=== PATIENT | female | born 1965 | race Caucasian/White ===

== ENCOUNTER → 2017-09-12 | Outpatient (CLI) | payer OTHER ==
[2016-08-14 11:17] VITALS: BMI 19.9
[~2017-09-12] MED LIST: AMIT-104 PO; AMIT-106 PO; BUTA1TAB14 PO; CYCL10TA29 PO; DIVA250T84 PO; DOCU-202 PO; DULO30CA35 PO; DULO60CA56 PO; ESOM40CA42 PO; LEVO25TA61 PO; LEVO50TA86 PO; LID5T TP; LIDO700A19 TOP; LISI-362 PO; MELA3TAB31 PO; METH4TAB66 PO; MOM PO; ONDA4TAB9 SL; OXYC5CAP21 PO; OXYC5TAB38 PO; PANT40TA65 PO; POLY17PO21 PO; RIZA5TAB30 PO; SUCR1TAB51 PO; TRIA15CR40 TP; VARE1TAB3 PO; VARE1TAB4 PO; Work Restrictions
== END ==
LOC: RESP 08:00
PROVIDERS: ATTEND Nurse Practitioner Family
DX: G47.30 Sleep apnea, unspecified (principal); R06.83 Snoring

== ENCOUNTER 2017-11-21 14:48 | Outpatient (RCR) | payer OTHER ==
[2016-08-14 11:17] VITALS: BMI 19.9
--- NOTE | 2017-09-02 10:41 | PT INITIAL EVALUATION ---
MEDICAL DIAGNOSIS: Chronic Back Pain, Chronic Headaches TREATMENT DIAGNOSIS: Chronic Back Pain, Chronic Headaches DATE OF ONSET: 08/26/17 SUBJECTIVE: Rand is a 52 year-old female presenting to physical therapy following a recent exacerbation of chronic mid back pain. Pt reports that she was lifting a heavy herman at work and since has been having high pain in the thoracic region with headaches that radiate from the back of the neck to the eyes. Pt has a long history of back pain and migraines, but she reports that this pain is different and more intense than her usual ache. Pt reports pain currently as 5/10 from T6 up to the occiput and with a headache present. Pt also reports constant numbness and tingling in B hands. Pt reports that she was started on a round of steroids by her APPLIED BEHAVIOR SPECIALIST which decreased the pain but since ending the pain has returned and appears to be getting worse. 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 OBJECTIVE: Posture: Pt has mild rounded shoulder and thoracic kyphosis with forward head. ROM: Thoracic ROM Screen: ext-pain in neck and between shoulders with moderate restrictions, flexion: full with pain at C7 level and between shoulders, L rot: moderate restrictions with L shoulder pain and neck pain, R rot: L shoulder pain with moderate restrictions, L SB: full ROM with pn in L shoulder and neck, R SB: no change in pain status with full ROM Sensation: Pt reports numbness and tingling in B hands. Mobility: Cayla Repeated Thoracic screen: Ext: no change in pain location or intensity, L rotation: decreased numbness in B hands, R SB: increased pain in L hand. ASSESSMENT: Pt shows signs and symptoms with an acute on chronic thoracic dysfunction with radiating pain from neural impingement. Physical therapy is indicated to improve the above listed deficits as well as improve pt functional ability to perform ADL's and work related activities without increased pain. Short Term Goals In 2 weeks pt will centralize pain to the spinal level only for increased function with B UE in ADL's. In 3 weeks pt will have <1 episode of migraines in a week coming from the spine for increased function with ADL's. In 4 weeks pt will reduce spinal pain to <2/10 with ADL's for improved function. In 4 weeks pt will be able to lift 20# without increased pain for improved function with work related activities. Patient's Goals Decrease pain and numbness in fingers and back. PLAN: Patient to be seen for Manual Therapy/STM/MET Strengthening/condition Ice/Heat Range of Motion Spinal Stabilization Ultrasound Stretching Iontophoresis Neuromuscular Re-ed Closed Chain Program Electrical Stim Posture/Body mechanics Gait Trg/Balance Trg Biofeedback Home Exercise Program Mech./Manual Traction Therapeutic Activities 3x/Week for 6 Weeks If you have any questions, comments, or concerns about this report or plan, please contact me at . Thank you, Gillian Dale, PT, DPT, CLT MTDD
--- NOTE | 2017-09-26 14:53 | PT PLAN OF CARE ---
Physician: Robinson Nguyen APRN CORE PILER-C Patient is being seen: 2-3x/Week Therapist: Gillian Dale, PT, DPT, CLT Medical Diagnosis: Chronic Back Pain, Chronic Headaches Treatment Diagnosis: Chronic Back Pain, Chronic Headaches, L Shoulder RTC Tendinopathy Date of Onset: 08/26/17 Date of Initial Evaluation: 09/01/17 Date patient was last seen: 09/26/17 Number of treatments: 10 Number of cancellations/No shows: 1 INTERVENTIONS: Manual Therapy/STM/MET Strengthening/condition Ice/Heat Range of Motion Spinal Stabilization Ultrasound Stretching Iontophoresis Neuromuscular Re-ed Closed Chain Program Electrical Stim Posture/Body mechanics Gait Trg/Balance Trg Biofeedback Home Exercise Program Mech./Manual Traction Therapeutic Activities GOALS: In 2 weeks pt will centralize pain to the spinal level only for increased function with B UE in ADL's. MET In 3 weeks pt will have <1 episode of migraines in a week coming from the spine for increased function with ADL's. MET In 4 weeks pt will reduce spinal pain to <2/10 with ADL's for improved function. In Progress In 4 weeks pt will be able to lift 20# without increased pain for improved function with work related activities. In Progress PATIENT'S GOAL: Decrease pain and numbness in fingers and back. Status of Patient's Goals: 2/4 MET, 1/4 In Progress Patient Compliance: Good Prognosis: Fair Reasons for continuing therapy: Rand shows good centralization of thoracic radiating pain to the thoracic spine only with no or very minimal numbness or tingling B. L Shoulder pain secondary to rotator cuff tendinopathy shows improvement with pain in the shoulder only without any radiation into the elbow or mid arm. Pt shows progress with strength and mobility, but it is slow secondary to pt frequent reinjury with work related activities such as heavy lifting. Further PT is indicated to continue progress in strength and decreased pain. Posture: Pt has mild rounded shoulder and thoracic kyphosis with forward head. ROM: Thoracic ROM Screen: ext-full, flexion: full, B rot: minimal restrictions B , L SB: full ROM , R SB: full ROM Mobility: Cayla Repeated Thoracic screen: Ext: no change in pain location or intensity, L rotation: decreased numbness in B hands, R SB: increased pain in L hand. If you have any questions or concerns, please feel free to contact me at . Thank you, Gillian Dale, PT, DPT, CLT YOAV
--- NOTE | 2017-11-12 10:06 | PT PLAN OF CARE ---
Physician: Robinson Nguyen APRN FOOTWEAR SALES ASSOCIATE-C Patient is being seen: 2-3x/Week Therapist: Gillian Dale, PT, DPT, CLT Medical Diagnosis: Chronic Back Pain, Chronic Headaches Treatment Diagnosis: Chronic Back Pain, Chronic Headaches Date of Onset: 08/26/17 Date of Initial Evaluation: 09/01/17 Date patient was last seen: 11/11/17 Number of treatments: 23 Number of cancellations/No shows: 2 INTERVENTIONS: Manual Therapy/STM/MET Strengthening/condition Ice/Heat Range of Motion Spinal Stabilization Ultrasound Stretching Iontophoresis Neuromuscular Re-ed Closed Chain Program Electrical Stim Posture/Body mechanics Gait Trg/Balance Trg Biofeedback Home Exercise Program Mech./Manual Traction Therapeutic Activities GOALS: In 2 weeks pt will centralize pain to the spinal level only for increased function with B UE in ADL's. MET In 3 weeks pt will have <1 episode of migraines in a week coming from the spine for increased function with ADL's. MET In 4 weeks pt will reduce spinal pain to <2/10 with ADL's for improved function. In Progress In 4 weeks pt will be able to lift 20# without increased pain for improved function with work related activities. In Progress PATIENT'S GOAL: Decrease pain and numbness in fingers and back. Status of Patient's Goals: 2/4 MET, 2/4 In Progress Patient Compliance: Good Prognosis: Fair Reasons for continuing therapy: Rand showed good progress in strength and decreased pain up until 11/04/17 where she had a reinjury when lifting a large pot of pasta for her job. Since the reinjury pt has showed return of progress, but has not yet returned to previous level of low pain and improved strength. Pt job station at [employer] is undergoing evaluation to reduce future injuries. Further PT to focus on decreasing pain and improving shoulder ROM, strength, and educating on lifting mechanics. Posture: Pt has mild rounded shoulder and thoracic kyphosis with forward head. ROM: Thoracic ROM Screen: full ROM L Shoulder ROM: flexion: 120, abd: 70, IR: WNL, ER: 75 degrees. Mobility: Cayla Repeated Thoracic screen: Ext: no change in pain location or intensity, L rotation: decreased numbness in B hands, R SB: increased pain in L hand. If you have any questions or concerns, please feel free to contact me at [phone]. Thank you, Gillian Dale, PT, DPT, CLT MTDD
[~2017-11-21 14:48] MED LIST changes: +AMIT-108 PO; +HYDR-385 PO; +HYDR12.556 PO; +[UNRECOGNIZED DRUG - OTHER]
[2017-11-25] MEDS ORDERED: [UNRECOGNIZED DRUG - OTHER] (10:51)
[2017-11-25] MEDS ORDERED: DIAZ-308 PO (17:24)
[2017-11-26] MEDS ORDERED: LEVO750T27 PO (10:06)
[2017-11-27] MEDS ORDERED: AZIT-1 PO (09:28)
[2017-11-27] MEDS ORDERED: CEFP200T18 PO (09:28)
[2017-11-27] MEDS ORDERED: DICL100G7 TOP (09:33)
[2017-11-28] MEDS ORDERED: OXYC5TAB38 PO (11:55)
[2017-11-28] MEDS ORDERED: CYCL10TA29 PO (11:55)
[2017-11-28] MEDS ORDERED: BUSP7.5T7 PO (11:55)
[2017-12-01] MEDS ORDERED: [UNRECOGNIZED DRUG - OTHER] (16:50)
== END 2017-11-30 ==
LOC: PT 14:48
PROVIDERS: ATTEND Nurse Practitioner Family
DX: M54.9 Dorsalgia, unspecified (principal); R51 Headache; R20.2 Paresthesia of skin
CPT/HCPCS: 97162

== ENCOUNTER → 2017-11-25 | Outpatient (CLI) | payer OTHER ==
[2016-08-14 11:17] VITALS: BMI 19.9
[~2017-11-25] MED LIST changes: +DIAZ-308 PO; +LEVO750T27 PO
[2017-11-25 09:53] LABS: PLATELET COUNT, AUTOMATED 361 K/uL (150-450)
--- NOTE | 2017-11-25 10:58 | RADIOLOGY IMAGING REPORT ---
FACILITY: [facility] PATIENT NAME: Rand Gautam : 1965 MR: [id number] V: [id number] EXAM DATE: ORDERING PHYSICIAN: BRAD SALINAS TECHNOLOGIST: Location: [facility] [place] Patient: Rand Gautam : 1965 Visit/Account:[id number] Date of Sevice: 11/25/2017 Exam type: CHEST PA AND LAT History: fever of unknown origin Comparison: August 13, 2016. Findings: In the location of the previously noted subtle opacity in the lateral right upper lung field there is now a patchy area of airspace consolidation. There is also subtle patchy airspace consolidation pro jecting over the right lung base as well. There is no evidence of pleural effusions or overt pulmona ry edema. The cardiac silhouette is normal in size. There is a small hiatal hernia present. Surgic al clips are present right upper quadrant of abdomen. There is a S-shaped scoliosis of the thoracolu mbar spine IMPRESSION: 1. Patchy airspace consolidation seen in the right upper lung field and to lesser extent right lung base has advanced when compared to prior study from August 13, 2016 and is worrisome for an acute i nfiltrate superimposed on chronic scarring versus a chronic infection not excluding tuberculosis. Ne oplastic process also not entirely ruled out. Short-term interval follow-up recommended Report Dictated By: Vanessa Grant MD at 11/25/2017 10:51 AM Report E-Signed By: Vanessa Grant MD at 11/25/2017 10:54 AM WSN:[id number]
== END ==
LOC: RAD 09:12
PROVIDERS: ATTEND Nurse Practitioner Family
DX: R91.8 Other nonspecific abnormal finding of lung field (principal)
CPT/HCPCS: 36415; 71046; 81001; 82040; 82150; 82247; 82310; 82374; 82435; 82565; 82947; 83690; 84075; 84132; 84155; 84295; 84450; 84460; 84520; 85025; 86140; 87081; 87880

== ENCOUNTER → 2017-11-26 | Outpatient (CLI) | payer OTHER ==
[2016-08-14 11:17] VITALS: BMI 19.9
[~2017-11-26] MED LIST changes: +AZIT-1 PO; +BUSP7.5T7 PO; +CEFP200T18 PO; +DICL100G7 TOP
[2017-11-26 09:56] LABS: INR 0.96
== END ==
LOC: LAB 08:26
PROVIDERS: ATTEND Nurse Practitioner Family
DX: I10 Essential (primary) hypertension (principal); R50.9 Fever, unspecified; M54.2 Cervicalgia; R51 Headache; D72.829 Elevated white blood cell count, unspecified
CPT/HCPCS: 36415; 82310; 82374; 82435; 82565; 82947; 84132; 84295; 84520; 85610; 85730; 86480; 86580; 87040

== ENCOUNTER 2017-11-29 13:31 | Emergency (ER) | payer OTHER ==
[2016-08-14 11:17] VITALS: Wt 81.6 kg
--- NOTE | 2017-11-29 13:52 | ER Report ---
History and Physical Time Seen By MD: 13:40 Hx. of Stated Complaint: PATIENT REPORTS THAT HER LEFT SHOULDER IS DISLOCATED. PATIENT HAS FULL RANGE OF MOTION IN LEFT ARM HPI/ROS CHIEF COMPLAINT: Shoulder subluxation, recurrent HISTORY OF PRESENT ILLNESS: This is a 52-year-old female. She has a history of chronic shoulder dislocations. She feels like the shoulder sublux again today. This is her left shoulder. She usually just sees physical therapy and they pop it back into place. She has not had any x-rays. It popped out and she has not felt it pop back in although she does have good range of motion. There is some discomfort in the shoulder. She has not seen orthopedic surgery for this yet. Sounds like an ongoing long-term chronic problem that she has had. She denies any numbness in the arm. Allergies: Coded Allergies: Penicillins (Verified Allergy, Intermediate, 08/13/16) Home Meds Active Scripts Buspirone Hcl (BUSPIRONE HCL) 7.5 Mg Tablet, 1 TAB PO BID, #60 TAB 0 Refills Prov:BRAD SALINAS APRNP-C 11/28/17 Oxycodone Hcl (OXYCODONE HCL) 5 Mg Tablet, 1-2 TAB PO Q6H Y for PAIN, #60 TAB 0 Refills Prov:BRAD SALINAS APRN-C 11/28/17 Cyclobenzaprine Hcl (CYCLOBENZAPRINE HCL) 10 Mg Tablet, 0.5-1 TAB PO TID Y for MUSCLE SPASMS, #30 TAB 2 Refills Prov:BRAD SALINAS APRN SUIT MAKER-C 11/28/17 Diclofenac Sodium (Diclofenac Sodium) 1 % Gel..gram., 2 GM TOP QID Y for PAIN, # 100 GM 0 Refills Prov:BRAD SALINAS APRN SUIT MAKER-C 11/27/17 Azithromycin (ZITHROMAX) 250 Mg Tablet, 0 PO DAILY, #6 TAB 0 Refills TAKE 2 TABLETS ON DAY ONE AND 1 TABLET DAILY FOR THE NEXT 4 DAYS. Prov:BRAD SALINAS APRNP-C 11/27/17 Cefpodoxime Proxetil (CEFPODOXIME PROXETIL) 200 Mg Tablet, 1 TAB PO Q12H, #14 TAB 0 Refills Prov:BRAD SALINAS CARLITOS HOGUEP-C 11/27/17 [Work Restriction] No Conflict Check Prov:EDSONMitchellKEMALBRAD CARLITOS SUIT MAKER-C 11/25/17 Triamcinolone Acetonide 0.1% Cr 15 Gm Tube (TRIAMCINOLONE ACETONIDE 0.1% CREAM) 15 Gm Cream..g., 1 ABI TP TID, #60 GM 3 Refills Apply sparingly to hands 3 times daily until resolved. Call if not improved in 2 weeks. Prov:BRAD SALINAS APRN-C 11/06/17 Amitriptyline Hcl (AMITRIPTYLINE HCL) 50 Mg Tablet, 1 TAB PO QHS, #30 TAB 1 Refill Prov:BRAD SALINAS APRN-C 10/27/17 Levothyroxine Sodium (LEVOTHYROXINE SODIUM) 25 Mcg Tablet, 1 TAB PO QDAY, #90 TAB 1 Refill Prov:BRAD SALINAS APRN-C 08/25/17 Duloxetine Hcl (CYMBALTA) 60 Mg Capsule.dr, 1 TAB PO DAILY, #90 TAB 1 Refill Prov:BRAD SALINAS APRN SUIT MAKER-C 08/25/17 Rizatriptan Benzoate (MAXALT) 5 Mg Tablet, 1 TAB PO DAILY Y for MIGRAINE, #15 TAB 5 Refills If no effect after 2 hours you may take a second tablet Prov:BRAD SALINAS APRN-C 08/25/17 Lisinopril (LISINOPRIL) 10 Mg Tablet, 1 TAB PO QDAY, #90 TAB 1 Refill Prov:BRAD SALINAS APRNP-C 08/25/17 Esomeprazole Magnesium (NEXIUM) 40 Mg Capsule.dr, 1 CAP PO QDAY, #90 CAP 1 Refill Prov:BRAD SALINAS APRN-C 07/11/17 Discontinued Scripts Hydrocodone Bit/Acetaminophen (HYDROCODON-ACETAMINOPHEN 5-325) 1 Each Tablet, 1 EACH PO Q6H Y for PAIN, #30 TAB 0 Refills Prov:BRAD SALINAS APRN-C 11/19/17 Hydrochlorothiazide (HYDROCHLOROTHIAZIDE) 12.5 Mg Capsule, 1 TAB PO QDAY, #30 CAPSULE 1 Refill Prov:BRAD SALINAS APRN SUIT MAKER-C 10/27/17 Levofloxacin 750 Mg Tab (LEVOFLOXACIN 750 MG TAB) 750 Mg Tablet, 750 MG PO DAILY , #5 TAB 0 Refills Prov:BRAD SALINAS APRN SUIT MAKER-C 11/26/17 Diazepam (DIAZEPAM) 5 Mg Tablet, 1 TAB PO ONCE, #1 TAB 0 Refills Take 1 hour prior to procedure Prov:BRAD SALINAS APRN SUIT MAKER-C 11/25/17 Methylprednisolone (METHYLPREDNISOLONE) 4 Mg Tab.ds.pk, 4 MG PO DIRECTED, #1 DOSE-PACK 0 Refills Prov:BRAD SALINAS APRN SUIT MAKER-C 11/06/17 Varenicline Tartrate (CHANTIX) 1 Mg Tablet, 1 MG PO BID, #60 TAB 1 Refill Prov:BRAD SALINAS APRN SUIT MAKER-C 08/08/17 Reviewed Nurses Notes: Yes Hx Smoking: No Smoking Status: Former Smoker Hx Substance Use Disorder: No Constitutional Vital Sign - Last 24 Hours 11/29/17 13:39 Temp 99.1 Pulse 106 Resp 24 B/P (MAP) 176/108 Pulse Ox 97 O2 Delivery Room Air Physical Exam General: Alert, no acute distress Musculoskeletal: She is able to fully move the shoulder with full abduction, adduction, flexion and extension. There is discomfort with this but no sirena pain. I don't see any obvious deformity. She has full movement of the rest the arm including elbow wrist and hand. No pain with palpating the scapula, clavicle , or the rest the arm. Skin: No skin breakdown or bruising. Cardiovascular: Normal pulses and cap refill Neuro: Normal sensation. Medical Decision Making EKG/Imaging Imaging SHOULDER MIN 2 VIEWS LEFT HISTORY: Shoulder pain COMPARISON: None FINDINGS: Left shoulder: There is no evidence of acute fracture or dislocation. Glenohumeral joint is normal. The acromioclavicular joint is normal in appearance. IMPRESSION: 1. No acute osseous abnormality. Report Dictated By: Albert Renner MD at 11/29/2017 2:15 PM ED Course/Re-evaluation ED Course After my initial evaluation, I went and then did full range of motion with the patient. It feels like the shoulder is in place. We went ahead and got an x-ray to prove this and the x-ray looks good as well. I did ask the patient to follow up with orthopedic surgery so they could discuss what needs to be done to prevent this in the future. She will use a sling and some ibuprofen as needed for pain. Decision to Disposition Date: Nov 29, 2017 Decision to Disposition Time: 14:43 Depart Departure Latest Vital Signs Vital Signs Date Time Temp Pulse Resp B/P (MAP) Pulse Ox O2 Delivery O2 Flow Rate FiO2 11/29/17 13:39 99.1 106 24 176/108 97 Room Air Impression: Primary Impression: Recurrent subluxation of shoulder Condition: Improved Disposition: HOME OR SELF-CARE Referrals: BRAD SALINAS APRN SUIT MAKER-C (PCP) PAULY JOSE MD Patient Instructions: Shoulder Dislocation (ED) Additional Instructions: Use Ibuprofen as needed for pain. You can take 3 of the over the counter tablets every 6-8 hours as needed for pain. Sling as needed to rest the shoulder for the next few days. Apply ice to the shoulder every hour for about 10-20minutes. Call [facility] for further evaluation. Problem Qualifiers Primary Impression: Recurrent subluxation of shoulder Laterality: left Qualified Codes: M24.412 - Recurrent dislocation, left shoulder SAMANTHA LANCE MD Nov 29, 2017 13:52
--- NOTE | 2017-11-29 14:20 | RADIOLOGY IMAGING REPORT ---
FACILITY: [facility] PATIENT NAME: Rand Gautam : 1965 MR: [id number] V: [id number] EXAM DATE: ORDERING PHYSICIAN: SAMANTHA LANCE TECHNOLOGIST: Location: [facility] [place] Patient: Rand Gautam : 1965 Visit/Account:[id number] Date of Sevice: 11/29/2017 SHOULDER MIN 2 VIEWS LEFT HISTORY: Shoulder pain COMPARISON: None FINDINGS: Left shoulder: There is no evidence of acute fracture or dislocation. Glenohumeral joint is normal. The acromioclavicular joint is normal in appearance. IMPRESSION: 1. No acute osseous abnormality. Report Dictated By: Albert Renner MD at 11/29/2017 2:15 PM Report E-Signed By: Albert Renner MD at 11/29/2017 2:15 PM WSN:[id number]
[2017-11-29 14:30] VITALS: BP 131/106
[2017-12-01] MEDS ORDERED: [UNRECOGNIZED DRUG - OTHER] (16:50)
== END 2017-11-29 14:56 | disposition home or self-care (01) ==
LOC: ER 13:40
DX: M24.412 Recurrent dislocation, left shoulder (principal)
CPT/HCPCS: 73030; 99283; A4565

== ENCOUNTER → 2017-12-01 | Outpatient (CLI) | payer OTHER ==
[2016-08-14 11:17] VITALS: BMI 19.9
[2017-12-01 12:53] LABS: PLATELET COUNT, AUTOMATED 424 K/uL (150-450)
--- NOTE | 2017-12-01 13:08 | RADIOLOGY IMAGING REPORT ---
FACILITY: [facility] PATIENT NAME: Rand Gautam : 1965 MR: [id number] V: [id number] EXAM DATE: ORDERING PHYSICIAN: BRAD SALINAS TECHNOLOGIST: Location: [facility] [place] Patient: Rand Gautam : 1965 Visit/Account:[id number] Date of Sevice: 12/01/2017 2 VIEWS CHEST INDICATION: Pneumonia. COMPARISON: 11/25/2017. FINDINGS: Cardiomediastinal silhouette and pulmonary vessels within normal limits. There is small amount of residual infiltrate/postinflammatory change in the lateral right midlung. Th e remaining lung blount are clear. There is no pneumothorax or pleural effusion. No nodule. Upper abdomen is unremarkable. No acute bony abnormality. Stable mild scoliotic curvature the spine. IMPRESSION: 1. Small amount of residual infiltrate/postinflammatory change in the lateral right midlung. Report Dictated By: Juan Carlos Mcmillan at 12/01/2017 1:02 PM Report E-Signed By: Juan Carlos Mcmillan at 12/01/2017 1:04 PM WSN:[id number]
== END ==
LOC: RAD 12:35
PROVIDERS: ATTEND Nurse Practitioner Family
DX: M41.9 Scoliosis, unspecified (principal); R91.8 Other nonspecific abnormal finding of lung field; E87.6 Hypokalemia; D72.829 Elevated white blood cell count, unspecified
CPT/HCPCS: 36415; 71046; 82040; 82247; 82310; 82374; 82435; 82565; 82947; 84075; 84132; 84155; 84295; 84450; 84460; 84520; 85025

== ENCOUNTER 2017-12-02 14:11 | Outpatient (RCR) | payer OTHER ==
[2016-08-14 11:17] VITALS: BMI 19.9
[2017-12-19] MEDS ORDERED: OXYC5TAB38 PO (15:02)
[2017-12-22] MEDS ORDERED: LISI-362 PO (09:10)
[2017-12-22] MEDS ORDERED: AMIT-108 PO (09:20)
[2017-12-22] MEDS ORDERED: OXYC5TAB38 PO (09:20)
[2017-12-22] MEDS ORDERED: BUSP7.5T7 PO (09:20)
[2017-12-23] MEDS ORDERED: CYCL10TA29 PO (15:57)
[2018-01-02] MEDS ORDERED: OXYC-373 PO (14:53)
[2018-01-09] MEDS ORDERED: OXYC-373 PO (11:27)
[2018-01-15] MEDS ORDERED: GABA-549 PO (13:05)
[2018-01-15] MEDS ORDERED: OXYC-373 PO (14:18)
== END 2017-12-02 18:00 | disposition home or self-care (01) ==
LOC: PT 14:11
PROVIDERS: ATTEND Nurse Practitioner Family
DX: M54.9 Dorsalgia, unspecified (principal); R51 Headache; R20.2 Paresthesia of skin

== ENCOUNTER → 2017-12-08 | Outpatient (CLI) | payer OTHER ==
[2016-08-14 11:17] VITALS: BMI 19.9
--- NOTE | 2017-12-08 10:24 | RADIOLOGY IMAGING REPORT ---
FACILITY: [facility] [place] PATIENT NAME: Rand Gautam : 1965 MR: [id number] V: [id number] EXAM DATE: ORDERING PHYSICIAN: BRAD SALINAS TECHNOLOGIST: Location: [facility] Patient: Rand Gautam : 1965 Visit/Account:[id number] Date of Sevice: 12/08/2017 MRI left shoulder without contrast Indication: Recurrent shoulder subluxation. Pain. Comparison: None available Technique: Multiplanar, multisequence MRI examination is performed of the left shoulder without contr ast. FINDINGS: There is a type 1 acromion. There are mild changes of acromioclavicular joint osteoarthritis. The gle nohumeral joint is normally aligned at the time of imaging. Articular surfaces are maintained. No lab ral abnormality seen on this noncontrast study. There is a trace joint effusion. Examination of the rotator cuff demonstrates mild supraspinatus and infraspinatus insertional tendino bettie. No discrete tear. Subscapularis insertional tendinopathy is seen with intrasubstance insertion al tearing. No full-thickness tear. The long head biceps tendon is seen within the bicipital groove a nd the glenoid insertion is intact. There is mild tendinopathy within the joint space. The tendon she ath is distended with T2 signal. Correlate for tenosynovitis. There is a small amount of fluid within the subacromial-subdeltoid bursa. Rotator cuff musculature is normal in bulk. No atrophy seen. . There is abnormal edema present within the teres minor muscle. Edema is present within the infraspina tus muscle posteriorly. Findings are nonspecific and could be related to a muscle injury. Denervation changes would also be in the differential. Quadrilateral space syndrome could account for the edema in the teres minor muscle. There is nonspecific subcutaneous edema overlying the lateral deltoid. IMPRESSION: 1. Mild left shoulder supraspinatus and infraspinatus insertional tendinopathy without discrete tear. 2. Subscapularis insertional tendinopathy with intrasubstance insertional tearing. No full-thickness extension. 3. Long head biceps tendinopathy within the rotator interval and the joint space. Tendon sheath is di stended with bright T2 signal with only a trace effusion at the shoulder joint. This is suggestive of tenosynovitis. 4. Nonspecific muscle edema involving the teres minor muscle and to a lesser extent the posterior inf raspinatus muscle. Denervation changes should be considered such as in the setting of quadrilateral s pace syndrome. Focal muscle strains would also be in the differential. Clinical correlation is necess lexie Report Dictated By: Derek Ken at 12/08/2017 10:07 AM Report E-Signed By: Derek Ken at 12/08/2017 10:20 AM WSN:[id number]
== END ==
LOC: MRI 06:57
PROVIDERS: ATTEND Nurse Practitioner Family
DX: M75.102 Unspecified rotator cuff tear or rupture of left shoulder, not specified as traumatic (principal); M75.82 Other shoulder lesions, left shoulder; M65.812 Other synovitis and tenosynovitis, left shoulder; M25.412 Effusion, left shoulder

== ENCOUNTER → 2017-12-22 | Outpatient (CLI) | payer OTHER ==
[2016-08-14 11:17] VITALS: BMI 19.9
[2017-12-22 09:45] LABS: PLATELET COUNT, AUTOMATED 400 K/uL (150-450)
--- NOTE | 2017-12-22 10:16 | RADIOLOGY IMAGING REPORT ---
FACILITY: [facility] PATIENT NAME: Rand Gautam : 1965 MR: [id number] V: [id number] EXAM DATE: ORDERING PHYSICIAN: BRAD SALINAS TECHNOLOGIST: Location: [facility] [place] Patient: Rand Gautam : 1965 Visit/Account:[id number] Date of Sevice: 12/22/2017 CHEST PA AND LAT History: Follow-up pneumonia Comparison 12/01/2017. FINDINGS: Improving right midlung infiltrate which is nearly completely resolved. No new infiltrates. No effu dheeraj. Heart size within normal limits. IMPRESSION: Continued improvement with near complete resolution of right midlung infiltrate. Report Dictated By: Sanjay Scott MD at 12/22/2017 10:12 AM Report E-Signed By: Sanjay Scott MD at 12/22/2017 10:13 AM WSN:[id number]
== END ==
LOC: LAB 09:31
PROVIDERS: ATTEND Nurse Practitioner Family
DX: R91.8 Other nonspecific abnormal finding of lung field (principal); D72.829 Elevated white blood cell count, unspecified; J18.9 Pneumonia, unspecified organism
CPT/HCPCS: 36415; 71046; 85025

== ENCOUNTER → 2017-12-22 | Outpatient (CLI) | payer OTHER ==
[2016-08-14 11:17] VITALS: BMI 19.9
== END ==
LOC: LAB 09:13
PROVIDERS: ATTEND Nurse Practitioner Family
DX: Z02.9 Encounter for administrative examinations, unspecified (principal)

== ENCOUNTER → 2018-01-13 | Outpatient (CLI) | payer OTHER ==
[2016-08-14 11:17] VITALS: BMI 19.9
[~2018-01-13] MED LIST changes: +OXYC-373 PO
--- NOTE | 2018-01-13 13:03 | RADIOLOGY IMAGING REPORT ---
FACILITY: [facility] [place] PATIENT NAME: Rand Gautam : 1965 MR: [id number] V: [id number] EXAM DATE: ORDERING PHYSICIAN: GIULIANA LOUIS TECHNOLOGIST: Location: [facility] Patient: Rand Gautam : 1965 Visit/Account:[id number] Date of Sevice: 01/13/2018 C SPINE W/O CONTRAST COMPARISON: None Additional pertinent history: Left shoulder pain with plexopathy and radiculopathy Technique: Multiplanar multisequence cervical spine MRI was performed without gadolinium enhancement. FINDINGS: Vertebral body height and alignment: Straightening of normal cervical lordosis. Otherwise negative Vertebral marrow signal: Negative Vertebral bodies: Anteriorly directed osteophytes in the mid to lower cervical spine. Cervical spinal cord signal, craniocervical junction and visualized posterior fossa: Negative Surrounding soft tissues: Negative Inspection of the disc spaces reveal the following: C1-C2: Negative C2-C3: Minimal circumferential disc bulging with facet hypertrophic changes. No significant canal or neural foraminal narrowing. C3-C4: Minimal circumferential disc bulging with facet and uncovertebral degenerative changes. No si gnificant canal or neural foraminal narrowing. C4-C5: Posterior broad-based disc protrusion with a left central annular tear. Moderate degree of st enosis involving the left aspect of the canal. Mild bilateral neural foraminal narrowing. C5-C6: Posterior broad-based disc protrusion with minimal posterior displacement of the cervical spin al cord at this level with mild to moderate canal stenosis. Moderate right-sided neural foraminal na rrowing. No significant left-sided neural foraminal narrowing. C6-C7: Posterior broad-based disc protrusion with a central disc extrusion. Moderate bilateral neura l foraminal narrowing with moderate canal stenosis. C7-T1: Negative Impression: 1. Multilevel spondylitic change as discussed above. 2. Findings felt to be potentially most significant at C6-C7 with moderate bilateral neural foramina l narrowing and moderate canal stenosis. 3. Findings also felt to be potentially significant at C4-C5 with moderate canal stenosis involving the left aspect of the canal as well as mild bilateral neural foraminal narrowing. Report Dictated By: Giuliana Rodríguez MD at 01/13/2018 12:53 PM Report E-Signed By: Giuliana Rodríguez MD at 01/13/2018 1:00 PM WSN:[id number]
== END ==
LOC: MRI 00:58
PROVIDERS: ATTEND Orthopaedic Surgery
DX: M47.892 Other spondylosis, cervical region (principal); M48.02 Spinal stenosis, cervical region
CPT/HCPCS: 72141

== ENCOUNTER → 2018-01-22 | Outpatient (CLI) | payer OTHER ==
[2016-08-14 11:17] VITALS: BMI 19.9
[~2018-01-22] MED LIST changes: +GABA-547 PO; +GABA-549 PO; +OXYC-870 PO
[2018-01-22 11:10] LABS: PLATELET COUNT, AUTOMATED 404 K/uL (150-450)
--- NOTE | 2018-01-22 12:04 | RADIOLOGY IMAGING REPORT ---
FACILITY: [facility] [place] PATIENT NAME: Rand Gautam : 1965 MR: [id number] V: [id number] EXAM DATE: ORDERING PHYSICIAN: BRAD SALINAS TECHNOLOGIST: [place] [facility] [place] Gaut[place] : 1965 Visit/Account:[id number] Date of Sevice: 01/22/2018 CHEST PA AND LAT History: FINDINGS: Comparison studies: 12/22/2017 and 11/25/2017 Tubes and Lines: None. Lungs and pleura: The right upper lobe infiltrate seen in October 2017 has completely resolved. L donte parenchyma is well-aerated and there are no inflammatory changes seen. Mediastinum: normal. Cardiac silhouette: normal . Osseous structures: Mild dextroconvex thoracolumbar scoliotic curvature again noted. IMPRESSION: No acute cardiopulmonary pathology identified. Report Dictated By: Seamus Gordon MD at 01/22/2018 11:56 AM Report E-Signed By: Seamus Gordon MD at 01/22/2018 11:59 AM WSN:[email or web address]
== END ==
LOC: RAD 10:43
PROVIDERS: ATTEND Nurse Practitioner Family
DX: R04.2 Hemoptysis (principal); R50.9 Fever, unspecified
CPT/HCPCS: 36415; 71046; 82040; 82247; 82310; 82374; 82435; 82565; 82947; 84075; 84132; 84155; 84295; 84450; 84460; 84520; 85025

== ENCOUNTER → 2018-02-21 | Outpatient (CLI) | payer OTHER ==
[2016-08-14 11:17] VITALS: BMI 19.9
[~2018-02-21] MED LIST changes: +AMIT100T53 PO; +ORP100 PO; +PREG25 PO; +TIZA2CAP3 PO
== END ==
LOC: RESP 19:36
PROVIDERS: ATTEND Nurse Practitioner Family
DX: G47.33 Obstructive sleep apnea (adult) (pediatric) (principal); G47.61 Periodic limb movement disorder; E66.9 Obesity, unspecified

== ENCOUNTER → 2018-02-24 | Outpatient (REF) ==
[2016-08-14 11:17] VITALS: BMI 19.9
[2018-02-24 11:45] LABS: LDL CHOLESTEROL 95 mg/dl
== END ==
DX: Z02.9 Encounter for administrative examinations, unspecified (principal)

== ENCOUNTER 2018-03-18 01:21 | Observation (INO) | payer OTHER ==
[2018-03-18] VITALS (15 sets, daily range): BP systolic 124–143; BP diastolic 80–99
[~2018-03-18] VITALS: Ht 167.6 cm; Wt 82.8 kg
[~2018-03-18 01:21] MED LIST changes: +ASPI-692 PO; +COLL140L TOP; +CPAP; +CYAN100058 PO; +DICL100G39 TOP; +FERR236T3 PO; +MAGN100T PO; +MELA10TA2 PO; +MULT-1101 PO; +OXYC-823 PO; +RIZA10TA PO; +THIA50TA10 PO
[2018-03-18] MEDS: NORMOSOL R SOLN(*) 1000 ML BAG 1,000 ML IV PRN (08:03)
[2018-03-18] MEDS ORDERED: REMIFENTANIL HCL 1 MG VIAL ONE (09:21)
[2018-03-18] MEDS ORDERED: CLINDAMYCIN(*) 900 MG/NS 50 ML 50 ML IVPB ONE (09:30)
[2018-03-18] MEDS ORDERED: PREGABALIN 150 MG CAPSULE PO ONE (09:30)
[2018-03-18] MEDS ORDERED: MIDAZOLAM 2 MG/2 ML VIAL IVP PRN (09:30)
[2018-03-18] MEDS ORDERED: ACETAMINOPHEN 500 MG TAB PO ONE (09:30)
[2018-03-18] MEDS ORDERED: LIDOCAINE/SOD BICARB 8.4% SYR ID ONE (09:30)
[2018-03-18] MEDS ORDERED: NS(*) 0.9% 500 ML BAG 500 ML ONE (10:12)
[2018-03-18] MEDS ORDERED: SUCCINYLCHOL CHL 200MG/10ML VL ONE (10:30)
[2018-03-18] MEDS ORDERED: PHENYLEPHRINE/NS/PF 0.4MG/10ML ONE (10:30)
[2018-03-18] MEDS ORDERED: HYDROmorphone HCL 2 MG/ML SDV ONE ×2 (13:02→13:47)
[2018-03-18] MEDS ORDERED: ONDANSETRON 4 MG/2 ML VIAL ONE (13:02)
[2018-03-18] MEDS ORDERED: DEXAMETHASONE SOD PHOS 10MG/ML ONE (13:02)
[2018-03-18] MEDS ORDERED: PROPOFOL EMUL(*) 10MG/ML 20 ML 140 ML ONE (13:02)
[2018-03-18] MEDS ORDERED: LABETALOL HCL 100 MG/20ML VIAL ONE (14:17)
[2018-03-18] MEDS ORDERED: BENZOCAINE/MENTHOL 1 EACH LOZG PO PRN (14:50)
[2018-03-18] MEDS ORDERED: FLUSH 10 ML SYR IVP PRN (14:50)
[2018-03-18] MEDS ORDERED: ACETAMINOPHEN(*)1000 MG/100 ML 100 ML IVPB PRN (14:50)
[2018-03-18] MEDS ORDERED: ACETAMINOPHEN 500 MG TAB PO PRN (14:50)
[2018-03-18] MEDS ORDERED: diphenhydrAMINE 25 MG CAP PO PRN (14:50)
[2018-03-18] MEDS ORDERED: BISACODYL 10 MG SUPP PR PRN (14:50)
[2018-03-18] MEDS ORDERED: MAGNESIUM HYDROXIDE* 30ML UDCP PO PRN (14:50)
[2018-03-18] MEDS ORDERED: ONDANSETRON 4 MG/2 ML VIAL IVP PRN (14:50)
[2018-03-18] MEDS ORDERED: HYDROmorphone HCL 2 MG/ML SDV IVP PRN (14:50)
[2018-03-18] MEDS ORDERED: LR(*) 1000 ML BAG 1,000 ML IV PRN (14:50)
[2018-03-18] MEDS: oxyCODONE HCL 5 MG CAP PO PRN ×3 (15:48→23:03)
--- NOTE | 2018-03-18 16:15 | RADIOLOGY IMAGING REPORT ---
FACILITY: [facility] PATIENT NAME: Rand Gautam : 1965 MR: [id number] V: [id number] EXAM DATE: ORDERING PHYSICIAN: EVERETT UBTLER TECHNOLOG[place]: [place] [facility] [place] Gaut[place] : 1965 Visit/Account:[id number] Date of Sevice: 03/18/2018 Exam type: CERVICAL SPINE 1 VIEW History: C-SPINE DISC HERNIATION/FUSION Comparison: January 23, 2018. Findings: Two lateral portable intraoperative views of the cervical spine were submitted demonstrating anterior fusion at C4-5 C5-6 and C6-7. An endotracheal tube is incidentally noted IMPRESSION: 1. As above Report Dictated By: Vanessa Grant MD at 03/18/2018 4:10 PM Report E-Signed By: Vanessa Grant MD at 03/18/2018 4:11 PM WSN:[email or web address]
[2018-03-18] MEDS: APAP/HYDROCODONE 325/5 TAB PO PRN ×2 (16:21→20:32)
--- NOTE | 2018-03-18 16:21 | OPERATIVE REPORT 1 ---
EVENT DATE: March 18, 2018 SURGEON: Bob Moulton MD ANESTHESIOLOGIST: Jim De Guzman MD ANESTHESIA: General endotracheal anesthesia. [employer] AGENCY LICENSEE: LORA Maradiaga PREOPERATIVE DIAGNOSIS Cervical degenerative disk disease with myeloradiculopathy. POSTOPERATIVE DIAGNOSIS Cervical degenerative disk disease with myeloradiculopathy. PROCEDURE PERFORMED C4-C5, C5-C6, and C6-C7 anterior cervical discectomy and fusion. INTRAVENOUS FLUIDS 2200 mL ESTIMATED BLOOD LOSS 50 mL IMPLANTS USED Size small, 7 mm, lordotic titanium interbody titanium device from [employer] times three and 3.5 mm x 14 mm fixation screws from [employer] times three. SPECIMENS None. DRAINS A 10-Citizen Of [place] round Angel-Small drain through the neck. COMPLICATIONS None. DISPOSITION Post-anesthesia care unit. INDICATIONS FOR SURGERY Ms. Gautam is a 52-year-old female who presented to my clinic with the complaint of radiating pain, numbness, and tingling in a C6 distribution, right greater than left. 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 Physical examination was significant for a positive Cameron sign bilaterally and hyperactive deep tendon reflexes. Her imaging studies showed multi-level degenerative disk disease with significant pressure on the spinal cord at C4-C5, C5-C6, and C6- C7. Secondary to ongoing symptoms and concern for potential worsening of her myelopathic symptoms, Ms. Gautam was offered and elected to undergo C4 through C7 anterior cervical discectomy and fusion. Prior to surgery, I explained in detail to the patient the possible risks of surgery. These risks included bleeding, infection, damage to surrounding structures, nerve root injury, spinal cord injury, damage to the esophagus or trachea, swallowing difficulty with possible need for tube feeding, persistent and/or worsening pain, need for further surgery, , blindness, sexual dysfunction, autonomic nervous system dysfunction, and other unforeseen medical and surgical complications. An understanding that spinal surgery is more predictive at improving extremity discomfort than axial spine pain was stressed. DESCRIPTION OF PROCEDURE On the day of surgery, the patient was met in the preoperative hold area, and all questions were answered. Her operative site was identified and marked by myself. Patient was then brought in good condition to the operating room, and after succumbing to anesthesia, was positioned in supine position on a standard OR bed. Her arms were loosely secured at the sides, and the shoulders were retracted inferiorly to afford access to the anterior cervical spine. All bony protuberances and soft tissues were well padded in the standard fashion. Care was taken to maintain appropriate perfusion pressures during anesthesia. Preoperative antibiotics were administered according to the appropriate timing schedule. At the conclusion of the procedure, sponge and needle counts were correct times two. A final timeout was undertaken by members of the operating team to confirm correct patient, correct levels, and correct surgery. The patient was then prepped and draped in the standard sterile orthopedic fashion, and an oblique incision was made along the medial border of the sternocleidomastoid muscle on the left. Sharp dissection was carried out down to the platysma which was divided. Blunt finger dissection was taken medial to the carotid sheath, which was first palpated and identified. The retropharyngeal space was entered and spaced developed. Soft tissues were elevated off the anterior cervical spine in a subperiosteal fashion including the longus colli muscles. A self- retaining retractor was placed and distracted and a microscope brought into the field. We started at the C4-C5 level where we used a 15 blade to incise the anterior annulus of the disk. Progressively smaller curettes and pituitary rongeurs were used to remove disk material from ventral to dorsal and out to the uncovertebral joints. Once we encountered the posterior annulus, we dissected through that with a forward-angled curette and a nerve hook. This was then removed along with posterior osteophytes using #1 and #2 Kerrison rongeurs. The posterior longitudinal ligament was dissected through also using a forward- angled curette and a nerve hook. This was, again, taken down with the #1 and # 2 Kerrisons, and once this was accomplished, I was able to check behind the vertebral bodies for any persistent spinal cord compression, and there was none present. The foramina were checked bilaterally as well for any persistent neural element compression. We then took the 7 mm trial rasp and placed it into the interspace. It fit nicely, and therefore, we selected a 7 mm, lordotic , size small interbody device from [employer]. This was packed with ViBone and tamped into the disk space after irrigating with copious sterile saline solution. It was countersunk about 0.5 mm, and then the awl was used to prepare the endplates to receive the fixation screws. Fixation screws 3.5 mm x 14 mm were placed through the device and into the endplates. Good purchase was noted. Attention was then turned to the C5-C6 level where the same technique was used to performed a diskectomy, and again, a 7 mm graft was chosen and inserted into the disk space. It was fixed with screws as well. Finally, we turned our attention to the C6-C7 level and again performed discectomy and placed the 7 mm interbody device with fixation screws. Meticulous hemostasis was then obtained, and a lateral radiograph was obtained that showed excellent positioning of orthopedic implants. The wound was irrigated with copious sterile saline solution and then closed in layers using interrupted sutures for the platysma, inverted interrupted sutures for the superficial fascia, and then a running subcuticular skin stitch. Sponge and needle counts were correct times two. A 10-Citizen [place] round Angel-Small drain was placed deep to the platysma. POSTOPERATIVE CARE PLAN The patient will remain in hospital overnight and will be kept in a cervical collar. She will follow up with me in two weeks' time for examination and wound check. YOAV
--- NOTE | 2018-03-18 16:33 | Hospitalist Progress Note ---
Subjective Progress Notes Subjective No cp/sob. EBL 20cc. 2000cc of crystalloid, and dexamethasone given intra-op. Physical Exam Vital Signs Date Time Temp Pulse Resp B/P (MAP) Pulse Ox O2 Delivery O2 Flow Rate FiO2 03/18/18 15:29 86 03/18/18 15:29 96.8 89 16 139/95 (110) Nasal Cannula 2.0 Intake and Output 03/19/18 06:59 Intake Total 2990 ml Output Total 15 ml Balance 2975 ml Intake Oral 240 ml IV Total 2750 ml Output Other 15 ml General Appearance: Alert, Awake, No Acute Distress Cardiovascular: Regular Rate and Rhythm Respiratory: Clear to Auscultation Extremities: No Edema Assessment and Plan Problems: (1) S/P cervical spinal fusion Status: Acute Assessment & Plan: No CV/pulmonary issues. Will defer to Dr. Moulton for DVT prophylaxis. (2) Fibromyalgia Status: Chronic Assessment & Plan: Continue chronic Cymbalta, and amitriptyline. (3) HTN (hypertension) Status: Chronic Assessment & Plan: Continue chronic lisinopril with parameters. (4) Anxiety Status: Chronic Assessment & Plan: Continue chronic BuSpar. Exam Sepsis Risk: No Definite Risk DAVID CRUZ MD Mar 18, 2018 16:33
[2018-03-18] MEDS: CLINDAMYCIN(*) 900 MG/NS 50 ML 50 ML IVPB SCH (18:25)
[2018-03-18] MEDS: busPIRone HCL 5 MG TAB PO SCH (20:32)
[2018-03-18] MEDS: DOCUSATE SODIUM 100 MG CAP PO SCH (20:32)
[2018-03-18] MEDS ORDERED: AMITRIPTYLINE HCL 25 MG TAB PO SCH (21:00)
[2018-03-18] MEDS: DIAZEPAM 5 MG TAB PO PRN (22:21)
[2018-03-19] MEDS: oxyCODONE HCL 5 MG CAP PO PRN ×2 (02:09→05:37)
[2018-03-19] MEDS: CLINDAMYCIN(*) 900 MG/NS 50 ML 50 ML IVPB SCH ×2 (02:09→10:30)
[2018-03-19 03:09] VITALS: BP 113/65
[2018-03-19] MEDS: APAP/HYDROCODONE 325/5 TAB PO PRN ×3 (03:13→13:07)
[2018-03-19] MEDS ORDERED: LEVOTHYROXINE SOD 0.025 MG TAB PO SCH (06:00)
--- NOTE | 2018-03-19 06:41 | Hospitalist Progress Note ---
Subjective Progress Notes Subjective No cp/sob. No concerns from patient or staff. Physical Exam Vital Signs Date Time Temp Pulse Resp B/P (MAP) Pulse Ox O2 Delivery O2 Flow Rate FiO2 03/19/18 03:09 97.9 93 12 113/65 (81) 96 Nasal Cannula 0.5 General Appearance: Alert, Awake, No Acute Distress Assessment and Plan Problems: (1) S/P cervical spinal fusion Status: Acute Assessment & Plan: No CV/pulmonary issues. Will defer to Dr. Moulton for DVT prophylaxis. (2) Fibromyalgia Status: Chronic Assessment & Plan: Continue chronic Cymbalta, and amitriptyline. (3) HTN (hypertension) Status: Chronic Assessment & Plan: Continue chronic lisinopril. (4) Anxiety Status: Chronic Assessment & Plan: Continue chronic BuSpar. Exam Sepsis Risk: No Definite Risk DAVID CRUZ MD Mar 19, 2018 06:41
[2018-03-19] MEDS ORDERED: DOCU240C84 PO (07:07)
[2018-03-19 07:08] VITALS: BP 116/71
[2018-03-19] MEDS ORDERED: LOR5/325 PO (07:08)
[2018-03-19] MEDS ORDERED: DIA5 PO (07:08)
[2018-03-19] MEDS: DIAZEPAM 5 MG TAB PO PRN ×2 (07:11→13:08)
[2018-03-19] MEDS: busPIRone HCL 5 MG TAB PO SCH (07:12)
[2018-03-19] MEDS: DOCUSATE SODIUM 100 MG CAP PO SCH (07:13)
[2018-03-19] MEDS ORDERED: PANTOPRAZOLE SOD 40 MG TABEC PO SCH (09:00)
[2018-03-19] MEDS ORDERED: LISINOPRIL 10 MG TAB PO SCH (09:00)
[2018-03-19] MEDS ORDERED: DULoxetine HCL 30 MG CAPCR PO SCH (09:00)
--- NOTE | 2018-03-19 09:26 | RADIOLOGY IMAGING REPORT ---
FACILITY: [facility] PATIENT NAME: Rand Gautam : 1965 MR: [id number] V: [id number] EXAM DATE: ORDERING PHYSICIAN: EVERETT BUTLER TECHNOLOGIST: Location: [facility] Patient: Rand Gautam : 1965 Visit/Account:[id number] Date of Sevice: 03/19/2018 Exam type: CERVICAL SPINE 2 OR 3 VIEW History: s/p C4-C7 ACDF Comparison: Cervical spine series March 18, 2018. Findings: There are postsurgical changes from anterior fusion at C4-5 C5-6 and C6-7. The vertebral bodies appe ar in good anatomic alignment. There is a small amount of prevertebral soft tissue gas to be expecte d on this patient who is status post anterior fusion yesterday IMPRESSION: 1. Anterior fusion C4-5 C5-6 and C6-7 appears in good anatomic alignment . Report Dictated By: Vanessa Grant MD at 03/19/2018 9:19 AM Report E-Signed By: Vanessa Grant MD at 03/19/2018 9:21 AM WSN:[email or web address]
[2018-03-19 10:46] VITALS: Ht 167.6 cm; Wt 82.8 kg
[2018-03-26] MEDS ORDERED: PRED20TA6 PO (14:25)
[2018-03-26] MEDS ORDERED: FAMO20TA28 PO (14:25)
== END 2018-03-19 07:10 | disposition home or self-care (01) ==
LOC: OR 01:21 → MED 15:29 → OBSVTOIN 15:29 → INTOOBSV 15:29
PROVIDERS: ADMIT Orthopaedic Surgery; ATTEND Orthopaedic Surgery
DX: M50.021 Cervical disc disorder at C4-C5 level with myelopathy (principal)
CPT/HCPCS: 22551; 22552; 36415; 72020; 72040; 76942; 81025; 86850; 86900; 86901; 97116; 97161; C1713; G0378; J0330; J1100; J1170; J2250; J2370; J2405; J2704; J3490; J7040; L0120

== ENCOUNTER → 2018-06-17 | Outpatient (CLI) | payer OTHER ==
[2018-03-19 10:46] VITALS: BMI 29.4
[~2018-06-17] MED LIST changes: +DIA5 PO; +DOCU240C84 PO; +FAMO20TA28 PO; +LOR5/325 PO; +PRED20TA6 PO
--- NOTE | 2018-06-17 09:16 | RADIOLOGY IMAGING REPORT ---
FACILITY: [facility] [place] PATIENT NAME: Rand Gautam : 1965 MR: [id number] V: [id number] EXAM DATE: ORDERING PHYSICIAN: EVERETT BUTLER TECHNOLOGIST: Location: [facility] [place] Patient: Rand Gautam : 1965 Visit/Account:[id number] Date of Sevice: 06/17/2018 Study: MRI of the cervical spine without gadolinium contrast Indication: Neck pain radiating down right arm. Left arm radiculopathy Comparison study: January 13, 2018 Technique: Multiplanar MRI sequences were obtained through the cervical spine without the use of gado linium contrast. Alignment: There is normal alignment of the cervical vertebrae. Cervical vertebrae: The patient is status post C4-C7. There is no abnormal signal identified within t he cervical vertebrae. Cervical spinal cord: The cervical spinal cord is unremarkable. There is no evidence of Chiari I malformation. Paraspinal soft tissues: Unremarkable Disc spaces: C2/3: Unremarkable C3/4: At this level, there is a broad-based right central disc protrusion. This does not cause signif icant spinal stenosis. There is no significant right and mild left neural foraminal stenosis. This le leyda is not significantly changed from the previous study. C4/5: At this level, the patient is status post interval fusion. There is no significant spinal steno sis. There is no significant right neural foraminal stenosis. There is mild left neural foraminal rakesh nosis. This level is improved in appearance as compared to the previous study. C5/6: This level, the patient is status post interval fusion. There is a posterior spondylotic ridge present. This does not cause significant spinal stenosis there is mild to moderate right and no signi ficant left neural foraminal stenosis. The degree of neural foraminal stenosis is not significantly changed in appearance as compared to the previous study. C6/7: At this level, the patient is status post interval fusion. There is a posterior spondylotic rid ge present. There is mild to moderate right and no significant left neural foraminal stenosis. There is no significant spinal stenosis. This level is improved in appearance as compared to the previous s tudy. C7/T1: Unremarkable IMPRESSION: The patient is status post interval C4-C7 fusion. The unfused levels are unchanged in ct earance. Please see the body of the report for description of individual disc levels. Report Dictated By: Nba Suazo at 06/17/2018 8:59 AM Report E-Signed By: Nba Suazo at 06/17/2018 9:12 AM WSN:[email or web address]
== END ==
LOC: MRI 01:46
PROVIDERS: ATTEND Orthopaedic Surgery
DX: M79.601 Pain in right arm (principal); Z98.890 Other specified postprocedural states
CPT/HCPCS: 72141

== ENCOUNTER 2018-07-30 08:15 | Outpatient (RCR) | payer OTHER ==
[2018-03-19 10:46] VITALS: BMI 29.4
--- NOTE | 2018-05-05 16:56 | PT INITIAL EVALUATION ---
MEDICAL DIAGNOSIS: C4-7 ACDF TREATMENT DIAGNOSIS: C4-7 ACDF DATE OF ONSET: 03/18/18 SUBJECTIVE: Rand is a 52 year old female presenting to rehabilitation s/p C4-7 anterior cervical discectomy and fusion (ACDF) following onset of L shoulder weakness and pain. Immediately following the surgery pt reported improved symptoms in L arm, however around 2 weeks following pt started having onset of L shoulder and arm symptoms again. Pt recently had her cervical collar discontinued on 05/01/18 and has had no relief of symptoms. Pt reports pain going up the neck to the head with posterior headache rated at 5-6/10 as well as radiating down to T4-5 level and out to the L arm to the level of mid-forearm. Pain is increased with lifting. Pt is currently not taking any pain medications , but was placed on a bone stimulator after surgery. REHAB PROBLEM LIST: Increased Pain Decreased ROM Decreased Strength Decreased Endurance Decreased Function Decreased ADL's Decreased Mobility PREVIOUS MEDICAL HISTORY: See EMR OCCUPATION: Works in [employer] dept at [employer]. OBJECTIVE: Posture: Pt has stiff cervical posture with slight forward head. ROM: Cervical ROM: flexion: moderate restrictions with posterior neck pain, ext : minimal restrictions with slight pain, L SB: 25 with L neck pain, R SB: 30 with R neck pain, L rotation: 55 with L neck pn, R rotation: 48 degrees. Shoulder ROM (L,R): flexion: 125, 140, abd: 85, 145, ER: 32, 58, IR: L5, T5 Strength: MMT Shoulder (L, R): flexion: 4/5 pn, 4/5, ext: 3+/5 pn anterior shoulder, 4+/5, abd: 4/5 pn, 5/5, ER: 3+/5 pn, 4+/5, IR: 4/5 pn, 5/5 Palpation: Pt is tender to palpation from T4-occiput radiating out into the L shoulder with tender paracervical muscles throughout. ASSESSMENT: Pt shows signs and symptoms consistent with neural impingement with radiating pain from the cervical spine s/p ACDF. Physical therapy is indicated to decreased the above listed impairments to improve cervical mobility and function and decrease pain for use with ADL's and occupational activities. Short Term Goals In 3 weeks pt will improve B SB to 30 degrees for improved function with ADL's. In 3 weeks pt will improve B rotation to 60 degrees for improved function with ADK's. In 6 weeks pt will improve L shoulder AROM to equal to that of the contralateral side for improved function with ADL's. In 6 weeks pt will improve L shoulder strength to 4/5 or greater for improved function with ADL's. Patient's Goals Improve functional use of neck and L arm for occupational activities and ADL' s. PLAN: Patient to be seen for Manual Therapy/STM/MET Strengthening/condition Ice/Heat Range of Motion Spinal Stabilization Ultrasound Stretching Iontophoresis Neuromuscular Re-ed Closed Chain Program Electrical Stim Posture/Body mechanics Biofeedback Home Exercise Program Mech./Manual Traction Therapeutic Activities 3x/Week for 6 Weeks If you have any questions, comments, or concerns about this report or plan, please contact me at . Thank you, Gillian Dale, PT, DPT, CLT MTDD
--- NOTE | 2018-06-05 14:47 | PT PLAN OF CARE ---
Physician: Bob Moulton MD Patient is being seen: 3x/Week Therapist: Gillian Dale, PT, DPT, CLT Medical Diagnosis: C4-7 ACDF Treatment Diagnosis: C4-7 ACDF Date of Onset: 03/18/18 Date of Initial Evaluation: 05/05/18 Date patient was last seen: 06/05/18 Number of treatments: 10 Number of cancellations/No shows: 1 INTERVENTIONS: Manual Therapy/STM/MET Strengthening/condition Ice/Heat Range of Motion Spinal Stabilization Ultrasound Stretching Iontophoresis Neuromuscular Re-ed Closed Chain Program Electrical Stim Posture/Body mechanics Biofeedback Home Exercise Program Mech./Manual Traction Therapeutic Activities GOALS: In 3 weeks pt will improve B SB to 30 degrees for improved function with ADL's. MET In 3 weeks pt will improve B rotation to 60 degrees for improved function with ADL's. In 6 weeks pt will improve L shoulder AROM to equal to that of the contralateral side for improved function with ADL's. In 6 weeks pt will improve L shoulder strength to 4/5 or greater for improved function with ADL's. PATIENT'S GOAL: Improve functional use of neck and L arm for occupational activities and ADL's. Status of Patient's Goals: 1/4 MET, 3/4 In Progress Patient Compliance: Fair Prognosis: Fair Reasons for continuing therapy: Rand shows slow and inconsistent progress with PT. Initially, pt showed good gains in cervical ROM as well as centralization of radiating pain from the neck. Pain moved from the L arm centralizing to the L upper trap region and reducing from an intensity of 7/10 to an intensity of 2/10. However, with recent return to full duty at work pain has increased and re-periphrealized to the L arm to the level of the hand. Despite recent set back, pt shows maintenance of gains in mobility with increased lateral bending, flexion and retraction. However, pain levels have recently increased and pt is frequently taking pain medication to manage pain with demanding work schedule. It is my impression that this pt would benefit from referral back to surgical MD to re-assess cervical stability with decreased bone density. Following approval of MD, further PT to focus on maintaining good postures with return to work and re-centralizing pain while continuing with gains in ROM. Posture: Pt has stiff cervical posture with slight forward head. ROM: Cervical ROM: flexion: minimal restrictions with neck pain, ext: minimal restrictions with slight pain, L SB: 30 with L neck pain, R SB: 35 with R neck pain, L rotation: 55 with L neck pn, R rotation: 48 degrees. Shoulder ROM (L,R): flexion: 125, 140, abd: 85, 145, ER: 32, 58, IR: L5, T5 Strength: MMT Shoulder (L, R): flexion: 4/5 pn, 4/5, ext: 3+/5 pn anterior shoulder, 4+/5, abd: 4/5 pn, 5/5, ER: 3+/5 pn, 4+/5, IR: 4/5 pn, 5/5 Palpation: Pt is tender to palpation from T4-occiput radiating out into the L shoulder with tender paracervical muscles throughout. If you have any questions or concerns, please feel free to contact me at [phone]. Thank you, Gillian Dale, PT, DPT, CLT YOAV
== END 2018-08-03 ==
LOC: PT 08:15
PROVIDERS: ATTEND Orthopaedic Surgery
DX: Z47.89 Encounter for other orthopedic aftercare (principal); M25.512 Pain in left shoulder; Z98.1 Arthrodesis status; R53.1 Weakness; R51 Headache; M54.2 Cervicalgia
CPT/HCPCS: 97162

== ENCOUNTER 2018-08-10 17:48 | Emergency (ER) | payer OTHER ==
[2018-03-19 10:46] VITALS: Wt 82.8 kg
[~2018-08-10 17:48] MED LIST changes: +POLY17PO11 PO; -POLY17PO21 PO
--- NOTE | 2018-08-10 18:00 | ER Report ---
History and Physical Time Seen By MD: 18:00 Hx. of Stated Complaint: pt states she has had kidney pain for two weeks HPI/ROS "kidney pain." No hematuria or dysuria. No chest pain or SOB. No fever/chills. No changes in bowel or bladder. No abdominal pain. Has been taking 16-20 ibuprofen a day for back pain. No falls. Remainder of the 14 system rev: Yes Allergies: Coded Allergies: Penicillins (Verified Allergy, Intermediate, 08/10/18) Home Meds Active Scripts Famotidine (PEPCID) 20 Mg Tablet, 20 MG PO QDAY, #30 TAB Prov:AURELIANO QUINN [facility] 03/26/18 Prednisone (PREDNISONE) 20 Mg Tablet, 40 MG PO DAILY, #10 TAB Prov:AURELIANO QUINN [facility] 03/26/18 Levothyroxine Sodium (LEVOTHYROXINE SODIUM) 25 Mcg Tablet, 1 TAB PO QDAY, #90 TAB 1 Refill Prov:BRAD SALINAS APRNP-C 02/24/18 Diclofenac Sodium (Diclofenac Sodium) 1 % Gel..gram., 2 GM TOP QID PRN for PAIN, #100 GM 2 Refills Prov:BRAD SALINAS APRNP-C 02/18/18 Esomeprazole Magnesium (NEXIUM) 40 Mg Capsule.dr, 1 CAP PO QDAY, #90 CAP 2 Refills Prov:BRAD SALINAS APRN TITLE I PARAPROFESSIONAL-C 02/13/18 Buspirone Hcl (BUSPIRONE HCL) 7.5 Mg Tablet, 1 TAB PO BID, #180 TAB 1 Refill Prov:BRAD SALINAS APRNP-C 12/22/17 Lisinopril (LISINOPRIL) 10 Mg Tablet, 3 TAB PO QDAY, #270 TAB 1 Refill Prov:BRAD SALINAS APRN TITLE I PARAPROFESSIONAL-C 12/22/17 Rizatriptan Benzoate (MAXALT) 5 Mg Tablet, 1 TAB PO DAILY PRN for MIGRAINE, #15 TAB 5 Refills If no effect after 2 hours you may take a second tablet Prov:BRAD SALINAS APRN TITLE I PARAPROFESSIONAL-C 08/25/17 Reported Medications Hydrocodone Bit/Acetaminophen (HYDROCODON-ACETAMINOPHEN 5-325) 1 Each Tablet, 1- 2 EACH PO Q6H, #49 TAB 03/19/18 Diazepam (VALIUM) 5 Mg Tablet, 5 MG PO Q8H PRN for SPASMS, #25 TAB 03/19/18 Docusate Calcium (SURFAK) 240 Mg Capsule, 240 MG PO DAILY, #9 CAPSULE 03/19/18 Duloxetine Hcl (CYMBALTA) 60 Mg Capsule.dr, 60 MG PO QDAY, #5 CAP 03/11/18 Colloidal Oatmeal (Eczema) 140 Gm Lotion, TOP PRN 03/11/18 Amitriptyline Hcl (AMITRIPTYLINE HCL) 50 Mg Tablet, 100 MG PO QHS, #10 TAB 03/11/18 Hx Smoking: No Smoking Status: Never Smoker Hx Substance Use Disorder: No Hx Alcohol Use: No Constitutional Vital Sign - Last 24 Hours 08/10/18 17:51 Temp 97.9 Pulse 96 Resp 12 B/P (MAP) 136/79 Pulse Ox 95 O2 Delivery Room Air Physical Exam General Appearance: The patient is alert, has no immediate need for airway protection and no current signs of toxicity. Eyes: Pupils equal and round no injection. Respiratory: Chest is non tender, lungs are clear to auscultation. Cardiac: regular rate and rhythm Gastrointestinal: Abdomen is soft and non tender, no masses, bowel sounds normal. Musculoskeletal: b/l TTP of the paraspinal regions of L1/L2. No midline TTP Extremities have full range of motion and are non tender. Skin: No rashes or lesions. DIFFERENTIAL DIAGNOSIS: After history and physical exam differential diagnosis was considered for back pain including but not limited to muscular pain, herni ated disc, spine fracture, intra-abdominal causes and urinary tract infection. Medical Decision Making Data Points Result Diagram: 08/10/18180808/10/181808 Laboratory Hematology Test 08/10/18 17:54 08/10/18 18:09 Urine Color Jaqui Urine Clarity Slightly-cloudy Urine pH 5.0 pH (4.8-9.5) Urine Specific [place] 1.032 Urine Protein Negative mg/dL (NEGATIVE) Urine Glucose (UA) Negative mg/dL (NEGATIVE) Urine Ketones Trace mg/dL (NEGATIVE) Urine Blood Negative (NEGATIVE) Urine Nitrite Negative (NEGATIVE) Urine Bilirubin Negative (NEGATIVE) Urine Urobilinogen Negative mg/dL (0.2-1.9) Urine Leukocyte Esterase Trace (NEGATIVE) Urine RBC <1 /HPF (0-2/HPF) Urine WBC 2 /HPF (0-5/HPF) Urine Squamous Epithelial Cells Few /LPF (</=FEW) Urine Bacteria Negative /HPF (NONE-FEW) Urine Hyaline Casts Many /LPF (NONE-FEW) Urine Mucus None /HPF (NONE-FEW) Red Blood Count 4.33 M/uL (4.17-5.56) Mean Corpuscular Volume 91.5 fL (80.0-96.0) Mean Corpuscular Hemoglobin 30.9 pg (26.0-33.0) Mean Corpuscular Hemoglobin Concent 33.7 g/dL (32.0-36.0) Red Cell Distribution Width 14.2 % (11.5-14.5) Mean Platelet Volume 6.6 fL (7.2-11.1) Neutrophils (%) (Auto) 54.9 % (39.4-72.5) Lymphocytes (%) (Auto) 32.4 % (17.6-49.6) Monocytes (%) (Auto) 10.0 % (4.1-12.4) Eosinophils (%) (Auto) 1.6 % (0.4-6.7) Basophils (%) (Auto) 1.1 % (0.3-1.4) Nucleated RBC Relative Count (auto) 0.0 /100WBC Neutrophils # (Auto) 5.3 K/uL (2.0-7.4) Lymphocytes # (Auto) 3.1 K/uL (1.3-3.6) Monocytes # (Auto) 1.0 K/uL (0.3-1.0) Eosinophils # (Auto) 0.2 K/uL (0.0-0.5) Basophils # (Auto) 0.1 K/uL (0.0-0.1) Nucleated RBC Absolute Count (auto) 0.00 K/uL Peripheral Blood Smear Yes Y/N Sodium Level 134 mmol/L (137-145) Potassium Level 5.1 mmol/L (3.5-5.0) Chloride Level 99 mmol/L (98-107) Carbon Dioxide Level 29 mmol/L (22-31) Blood Urea Nitrogen 14 mg/dl (7-18) Creatinine 1.20 mg/dl (0.52-1.04) Glomerular Filtration Rate Calc 47.2 Random Glucose 81 mg/dl (75-110) Calcium Level 8.9 mg/dl (8.4-10.2) Total Bilirubin 0.2 mg/dl (0.2-1.3) Aspartate Amino Transf (AST/SGOT) 23 U/L (0-35) Alanine Aminotransferase (ALT/SGPT) 31 U/L (0-56) Alkaline Phosphatase 80 U/L (0-126) Total Protein 7.3 g/dl (6.3-8.2) Albumin 4.1 g/dl (3.5-5.0) Chemistry Test 08/10/18 17:54 08/10/18 18:09 Urine Color Jaqui Urine Clarity Slightly-cloudy Urine pH 5.0 pH (4.8-9.5) Urine Specific [place] 1.032 Urine Protein Negative mg/dL (NEGATIVE) Urine Glucose (UA) Negative mg/dL (NEGATIVE) Urine Ketones Trace mg/dL (NEGATIVE) Urine Blood Negative (NEGATIVE) Urine Nitrite Negative (NEGATIVE) Urine Bilirubin Negative (NEGATIVE) Urine Urobilinogen Negative mg/dL (0.2-1.9) Urine Leukocyte Esterase Trace (NEGATIVE) Urine RBC <1 /HPF (0-2/HPF) Urine WBC 2 /HPF (0-5/HPF) Urine Squamous Epithelial Cells Few /LPF (</=FEW) Urine Bacteria Negative /HPF (NONE-FEW) Urine Hyaline Casts Many /LPF (NONE-FEW) Urine Mucus None /HPF (NONE-FEW) White Blood Count 9.6 k/uL (4.5-11.0) Red Blood Count 4.33 M/uL (4.17-5.56) Hemoglobin 13.4 g/dL (12.0-16.0) Hematocrit 39.6 % (34.0-47.0) Mean Corpuscular Volume 91.5 fL (80.0-96.0) Mean Corpuscular Hemoglobin 30.9 pg (26.0-33.0) Mean Corpuscular Hemoglobin Concent 33.7 g/dL (32.0-36.0) Red Cell Distribution Width 14.2 % (11.5-14.5) Platelet Count 504 K/uL (150-450) Mean Platelet Volume 6.6 fL (7.2-11.1) Neutrophils (%) (Auto) 54.9 % (39.4-72.5) Lymphocytes (%) (Auto) 32.4 % (17.6-49.6) Monocytes (%) (Auto) 10.0 % (4.1-12.4) Eosinophils (%) (Auto) 1.6 % (0.4-6.7) Basophils (%) (Auto) 1.1 % (0.3-1.4) Nucleated RBC Relative Count (auto) 0.0 /100WBC Neutrophils # (Auto) 5.3 K/uL (2.0-7.4) Lymphocytes # (Auto) 3.1 K/uL (1.3-3.6) Monocytes # (Auto) 1.0 K/uL (0.3-1.0) Eosinophils # (Auto) 0.2 K/uL (0.0-0.5) Basophils # (Auto) 0.1 K/uL (0.0-0.1) Nucleated RBC Absolute Count (auto) 0.00 K/uL Peripheral Blood Smear Yes Y/N Glomerular Filtration Rate Calc 47.2 Calcium Level 8.9 mg/dl (8.4-10.2) Total Bilirubin 0.2 mg/dl (0.2-1.3) Aspartate Amino Transf (AST/SGOT) 23 U/L (0-35) Alanine Aminotransferase (ALT/SGPT) 31 U/L (0-56) Alkaline Phosphatase 80 U/L (0-126) Total Protein 7.3 g/dl (6.3-8.2) Albumin 4.1 g/dl (3.5-5.0) Urinalysis Test 08/10/18 17:54 Urine Color Jaqui Urine Clarity Slightly-cloudy Urine pH 5.0 pH (4.8-9.5) Urine Specific [place] 1.032 Urine Protein Negative mg/dL (NEGATIVE) Urine Glucose (UA) Negative mg/dL (NEGATIVE) Urine Ketones Trace mg/dL (NEGATIVE) Urine Blood Negative (NEGATIVE) Urine Nitrite Negative (NEGATIVE) Urine Bilirubin Negative (NEGATIVE) Urine Urobilinogen Negative mg/dL (0.2-1.9) Urine Leukocyte Esterase Trace (NEGATIVE) Urine RBC <1 /HPF (0-2/HPF) Urine WBC 2 /HPF (0-5/HPF) Urine Squamous Epithelial Cells Few /LPF (</=FEW) Urine Bacteria Negative /HPF (NONE-FEW) Urine Hyaline Casts Many /LPF (NONE-FEW) Urine Mucus None /HPF (NONE-FEW) ED Course/Re-evaluation ED Course Mildly elevated creatinine due to NSAID use. The patient to discontinue taking ibuprofen. Pain is not in the region of the kidneys but is more bilateral paraspinal at the L1 region. More consistent with a muscle strain. Counseled her to switch from ibuprofen to Tylenol for the pain and also gave her a lidocaine patch and stretching exercises to do at home. She said she will follow-up with her physical therapist. Decision to Disposition Date: Aug 10, 2018 Decision to Disposition Time: 18:55 Depart Departure Latest Vital Signs Vital Signs Date Time Temp Pulse Resp B/P (MAP) Pulse Ox O2 Delivery O2 Flow Rate FiO2 08/10/18 17:51 97.9 96 12 136/79 95 Room Air Impression: Primary Impression: Lumbar back pain Condition: Improved Disposition: HOME OR SELF-CARE Referrals: BRAD SALINAS APRN TITLE I PARAPROFESSIONAL-C (PCP) Patient Instructions: Low Back Strain (ED) Additional Instructions: Stop taking ibuprofen. You can take 1 gram of tylenol three times a day for pain. LUCINDA TOSCANO MD Aug 10, 2018 18:00
[2018-08-10 18:32] LABS: PLATELET COUNT, AUTOMATED 504 K/uL (150-450)
[2018-08-10] MEDS ORDERED: LIDOCAINE 5% PATCH TP SCH (18:50)
[2018-08-10 18:59] VITALS: BP 127/84
[2018-08-10] MEDS ORDERED: PATCH REMOVAL 1 EA TOP SCH (21:00)
== END 2018-08-10 19:07 | disposition home or self-care (01) ==
LOC: ER 18:21
DX: M54.5 Low back pain (principal)
CPT/HCPCS: 81001; 82040; 82247; 82310; 82374; 82435; 82565; 82947; 84075; 84132; 84155; 84295; 84450; 84460; 84520; 85025; 99282

== ENCOUNTER → 2018-08-12 | Outpatient (CLI) | payer OTHER ==
[2018-03-19 10:46] VITALS: BMI 29.4
--- NOTE | 2018-08-12 14:18 | EKG ---
FACILITY: [facility] - [place], [place] PATIENT NAME: LUCINDA HANDLEY : [id number] MR: [id number] V: [id number] EXAM DATE: ORDERING PHYSICIAN: JOHNNY PARKER TECHNOLOGIST: CHING Gill Reason : PREOP-HAND Blood Pressure : / mmHG Vent. Rate : 095 BPM Atrial Rate : 095 BPM P-R Int : 142 ms QRS Dur : 082 ms QT Int : 348 ms P-R-T Axes : 059 -07 038 degrees QTc Int : 437 ms Sinus rhythm Possible biatrial enlargement Left axis Possible left ventricular hypertrophy Abnormal ECG Confirmed by EDMUNDO TAPIA ([id number]) on 08/12/2018 3:32:30 PM Referred By: KEITH Confirmed By:EDMUNDO TAPIA
[2018-08-12 14:40] LABS: PLATELET COUNT, AUTOMATED 479 K/uL (150-450)
[2018-08-12 14:46] LABS: INR 0.93
== END ==
LOC: RESP 14:06
PROVIDERS: ATTEND Anesthesiology
DX: Z01.812 Encounter for preprocedural laboratory examination (principal); Z01.810 Encounter for preprocedural cardiovascular examination; R94.31 Abnormal electrocardiogram [ECG] [EKG]
CPT/HCPCS: 36415; 82040; 82247; 82310; 82374; 82435; 82565; 82947; 84075; 84132; 84155; 84295; 84450; 84460; 84520; 85025; 85610; 93005

== ENCOUNTER → 2018-08-19 | Outpatient (REF) | payer OTHER ==
[2018-03-19 10:46] VITALS: BMI 29.4
[2018-08-19 09:57] LABS: PLATELET COUNT, AUTOMATED 479 K/uL (150-450)
== END ==
LOC: ZZSENDIN 09:32
PROVIDERS: ATTEND Family Medicine
DX: Z01.818 Encounter for other preprocedural examination (principal)
CPT/HCPCS: 81001; 82728; 83540; 83550; 85007; 85027; 86140

== ENCOUNTER → 2018-08-26 | Outpatient (CLI) | payer OTHER ==
[2018-03-19 10:46] VITALS: BMI 29.4
--- NOTE | 2018-08-26 10:38 | RADIOLOGY IMAGING REPORT ---
[place] [facility] [place] NAME[place] Rand Gautam : 1965 MR: [id number] V: [id number] EXAM DATE: ORDERING PHYSICIAN: GIULIANA VASQUEZ TECHNOLOGIST: Location: [facility] [place] Patient: Rand Gautam : 1965 Visit/Account:[id number] Date of Sevice: 08/26/2018 DEXA Scan Clinical history: Postmenopausal, severe back pain. Comparison: None available. LUMBAR SPINE: The bone mineral density (BMD) measured from L1-L4 correlates with a Z-score -1.5 and a T-score of -1 .4 which is osteopenia as defined by the World Health Organization. The corresponding risk of fractu re in the lumbar spine is 2-3 times increased compared with a young adult reference population. HIP: Bone mineral density (BMD) measured in the Left total hip region correlates with a Z-score -1.3 and a T-score of -1.3 which is osteopenia as defined by the World Health Organization. The corresponding risk of fracture in the hip is 2-3 times increased compared with a young adult reference population. T score left femoral neck -1.3 Bone mineral density (BMD) measured in the Femoral Neck region measures 0.860 g/cm2. Impression: 1. Lumbar spine: Osteopenia. 2. Left Hip: Osteopenia. 3. Femoral Neck: Bone Mineral Density is 0.860 g/cm2 The next DEXA scan of this patient should include the following sites: L1-L4 and the left hip. FRAX? WHO Fracture Risk Assessment Tool link: <http://www.shef.ac.uk/FRAX/tool.jsp?locationValue=9> PLEASE NOTE: 1) The World Health Organization defines low BMD as follows: T-score Normal > -1 Osteopenia < -1 and > -2.5 Osteoporosis < -2.5 without fractures Established osteoporosis < -2.5 with fractures 2) In general, you may wish to consider: Diagnosis Treatment Follow-up DEXA Normal BMD Prevention 2-3 years Osteopenia Prevention/therapy 1-2 years Osteoporosis Therapy Yearly 3) Fracture risk estimated from the T-score is more accurate for vertebral fractures (often spontane ous) than for hip fractures. Report Dictated By: Vanessa Grant MD at 08/26/2018 10:32 AM Report E-Signed By: Vanessa Grant MD at 08/26/2018 10:33 AM WSN:[email or web address]
== END ==
LOC: US 00:20
PROVIDERS: ATTEND Family Medicine
DX: Z13.820 Encounter for screening for osteoporosis (principal); Z01.818 Encounter for other preprocedural examination; M85.88 Other specified disorders of bone density and structure, other site; I70.0 Atherosclerosis of aorta
CPT/HCPCS: 77080; 93306

== ENCOUNTER → 2018-08-31 | Outpatient (CLI) | payer OTHER ==
[2018-03-19 10:46] VITALS: BMI 29.4
[2018-08-31 09:36] LABS: PLATELET COUNT, AUTOMATED 492 K/uL (150-450)
[2018-08-31 09:48] LABS: LDL CHOLESTEROL 117 mg/dl
== END ==
LOC: LAB 09:19
PROVIDERS: ATTEND Family Medicine
DX: Z00.00 Encounter for general adult medical examination without abnormal findings (principal); E87.6 Hypokalemia
CPT/HCPCS: 36415; 82310; 82374; 82435; 82465; 82565; 82947; 83718; 84132; 84295; 84478; 84520; 85025

== ENCOUNTER → 2018-09-15 | Outpatient (CLI) | payer OTHER ==
[2018-03-19 10:46] VITALS: BMI 29.4
--- NOTE | 2018-09-16 10:14 | RADIOLOGY IMAGING REPORT ---
FACILITY: [facility] - [place], [place] PATIENT NAME: LUCINDA HANDLEY : [id number] MR: [id number] V: [id number] EXAM DATE: [id number] ORDERING PHYSICIAN: GIULIANA VASQUEZ TECHNOLOGIST: Shannan Kendall PROCEDURE:BILATERAL DIGITAL SCREENING MAMMOGRAM WITH CAD ASSISTED INTERPRETATION & 3D TOMOSYNTHESIS COMPARISON:Prior mammograms dated 12/09/16, 10/21/13 INDICATIONS:SCREENING FINDINGS: There are scattered fibroglandular densities throughout both breasts. The parenchymal pattern has remained stable. DIAGNOSTIC CATEGORY 1--NEGATIVE. RECOMMENDATIONS: ROUTINE MAMMOGRAM AND CLINICAL EVALUATION. IMPRESSION: BIRADS 1: Negative. No significant abnormality is seen. Dictated by: Vanessa Grant M.D. on 09/15/2018 at 16:30 Transcribed by: PAYAM on 09/16/2018 at 9:49 Approved by: Vanessa Grant M.D. on 09/16/2018 at 10:14 [facility]
== END ==
LOC: MAMO 00:42
PROVIDERS: ATTEND Family Medicine
DX: Z12.31 Encounter for screening mammogram for malignant neoplasm of breast (principal)
CPT/HCPCS: 77063; 77067

== ENCOUNTER 2018-09-17 16:45 | Outpatient (RCR) | payer OTHER ==
[2018-03-19 10:46] VITALS: BMI 29.4
--- NOTE | 2018-09-04 10:11 | PT PLAN OF CARE ---
Physician: Bob Moulton MD Patient is being seen: 2x/Week Therapist: Gillian Dale, PT, DPT, CLT Medical Diagnosis: C4-7 ACDF Treatment Diagnosis: C4-7 ACDF Date of Onset: 03/18/18 Date of Initial Evaluation: 05/05/18 Date patient was last seen: 09/03/18 Number of treatments: 21 Number of cancellations/No shows: 1 INTERVENTIONS: Manual Therapy/STM/MET Strengthening/condition Ice/Heat Range of Motion Spinal Stabilization Ultrasound Stretching Iontophoresis Neuromuscular Re-ed Closed Chain Program Electrical Stim Posture/Body mechanics Biofeedback Home Exercise Program Mech./Manual Traction Therapeutic Activities GOALS: In 3 weeks pt will improve B SB to 30 degrees for improved function with ADL's. MET In 3 weeks pt will improve B rotation to 60 degrees for improved function with ADL's. In 6 weeks pt will improve L shoulder AROM to equal to that of the contralateral side for improved function with ADL's. In 6 weeks pt will improve L shoulder strength to 4/5 or greater for improved function with ADL's. PATIENT'S GOAL: Improve functional use of neck and L arm for occupational activities and ADL's. Status of Patient's Goals: 1/4 MET, 3/4 In Progress Patient Compliance: Fair Prognosis: Fair Reasons for continuing therapy: Upon her last visit, I recommended to Rand to seek further assessment with her MD for possible correction of surgical status. With MD assessment pt was instructed to try steroid injections as surgical revision is not and option at this time. Following recent injections in the neck Rand shows complete abolishment of radiating cervical symptoms. Lingering ache remains in the L shoulder only with slight anterior displacement. Further PT to progress towards strengthening of shoulder for increased stability while neuromuscular activation is present with decreased cervical pain. Posture: Pt has stiff cervical posture with slight forward head. ROM: Cervical ROM: flexion: minimal restrictions with neck pain, ext: minimal restrictions with slight pain, L SB: 30 with L neck pain, R SB: 35 with R neck pain, L rotation: 55 with L neck pn, R rotation: 48 degrees. Shoulder ROM (L,R): flexion: 125, 140, abd: 85, 145, ER: 32, 58, IR: L5, T5 Strength: MMT Shoulder (L, R): flexion: 3+/5 pn, 4/5, ext: 5/5 , 5/5, abd: 3+/5 pn, 5/5, ER: 3/5 pn, 5-/5, IR: 4-/5 pn, 5/5 Palpation: Pt is tender to palpation along the L shoulder joint A>P If you have any questions or concerns, please feel free to contact me at [phone]. Thank you, Gillian Dale, PT, DPT, CLT MTDD
[~2018-09-17 16:45] MED LIST changes: +THIA50TA PO; -THIA50TA10 PO
[2018-09-18] MEDS ORDERED: HYDR-385 PO (12:44)
[2018-10-08] MEDS ORDERED: AZIT-17 PO (11:13)
[2018-10-08] MEDS ORDERED: PRED-1 PO (11:13)
== END 2018-09-17 18:00 | disposition home or self-care (01) ==
LOC: PT 16:45
PROVIDERS: ATTEND Orthopaedic Surgery
DX: M43.22 Fusion of spine, cervical region (principal)

== ENCOUNTER 2018-09-25 15:50 | Emergency (ER) | payer OTHER ==
[2018-03-19 10:46] VITALS: Wt 84.4 kg
[~2018-09-25 15:50] MED LIST changes: -THIA50TA PO; +THIA50TA10 PO
[2018-09-25] MEDS ORDERED: PANT40TA65 PO (15:59)
--- NOTE | 2018-09-25 16:00 | ER Report ---
History and Physical Time Seen By MD: 16:00 Hx. of Stated Complaint: pt has had cough for -6 days, productive of brown secretions HPI/ROS CHIEF COMPLAINT: cough HISTORY OF PRESENT ILLNESS: This is a 53 year old female. She has been coughing for about 6 days. Having chest pain from coughing so much. Having brown colored secretions. She has been a little short of breath as well. feeling weak and tired. Intermittent fevers. No nausea or vomiting. Allergies: Coded Allergies: Penicillins (Verified Allergy, Intermediate, 09/25/18) Home Meds Active Scripts Guaifenesin/Codeine (GUAIFENESIN-CODEINE SYRUP) 5 Ml Syrp, 5 ML PO Q6H PRN for COUGH, #120 ML 0 Refills Prov:ISRAEL BLANCAS MD 09/25/18 Levothyroxine Sodium (LEVOTHYROXINE SODIUM) 25 Mcg Tablet, 1 TAB PO QDAY, #90 TAB 1 Refill Prov:BRAD SALINAS APRN DIRECTOR OF GLOBAL MARKETING-C 02/24/18 Diclofenac Sodium (Diclofenac Sodium) 1 % Gel..gram., 2 GM TOP QID PRN for PAIN, #100 GM 2 Refills Prov:BRAD SALINAS APRN DIRECTOR OF GLOBAL MARKETING-C 02/18/18 Rizatriptan Benzoate (MAXALT) 5 Mg Tablet, 1 TAB PO DAILY PRN for MIGRAINE, #15 TAB 5 Refills If no effect after 2 hours you may take a second tablet Prov:BRAD SALINAS APRN DIRECTOR OF GLOBAL MARKETING-C 08/25/17 Reported Medications Pantoprazole Sodium (PANTOPRAZOLE SODIUM) 40 Mg Tablet., 40 MG PO QDAY, TAB.SR 09/25/18 Hydrocodone Bit/Acetaminophen (HYDROCODON-ACETAMINOPHEN 5-325) 1 Each Tablet, 1- 2 EACH PO Q4-6H PRN for PAIN, #10 TAB 09/18/18 Lisinopril (LISINOPRIL) 10 Mg Tablet, 10 MG PO QDAY, TAB 09/11/18 Duloxetine Hcl (CYMBALTA) 30 Mg Capsule.dr, 30 MG PO HS, #5 CAP 09/11/18 Duloxetine Hcl (CYMBALTA) 60 Mg Capsule.dr, 60 MG PO QDAY, #5 CAP 03/11/18 Colloidal Oatmeal (Eczema) 140 Gm Lotion, TOP PRN 6/13/18 Amitriptyline Hcl (AMITRIPTYLINE HCL) 50 Mg Tablet, 100 MG PO QHS, #10 TAB 03/11/18 Discontinued Scripts Esomeprazole Magnesium (NEXIUM) 40 Mg Capsule., 1 CAP PO QDAY, #90 CAP 2 Refills Prov:BRAD SALINAS APRN DIRECTOR OF GLO[employer] MARKETING-C 02/13/18 Reviewed Nurses Notes: Yes Hx Smoking: No Smoking Status: Never Smoker Hx Substance Use Disorder: Yes Hx Alcohol Use: No Constitutional Vital Sign - Last 24 Hours 09/25/18 09/25/18 09/25/18 09/25/18 15:56 16:00 16:10 16:20 Pulse 99 Resp 15 B/P (MAP) 143/84 (103) 147/83 (104) Pulse Ox 88 O2 Flow Rate 2.0 09/25/18 09/25/18 09/25/18 09/25/18 16:24 16:30 16:50 17:00 Pulse 97 Resp 21 B/P (MAP) 135/76 (95) 133/75 (94) 142/71 (94) Pulse Ox 85 09/25/18 09/25/18 09/25/18 09/25/18 17:20 17:30 17:35 18:00 Pulse 91 90 82 Resp 17 18 18 B/P (MAP) 127/68 (87) Pulse Ox 91 82 09/25/18 09/25/18 09/25/18 09/25/18 18:00 18:00 18:05 18:07 Pulse 79 96 Resp 11 18 B/P (MAP) 126/74 (91) Pulse Ox 98 97 O2 Delivery Nasal Cannula O2 Flow Rate 2.0 09/25/18 09/25/18 09/25/18 09/25/18 18:07 18:30 18:34 18:35 Pulse 100 Resp 23 B/P (MAP) 121/67 (85) Pulse Ox 92 85 91 O2 Delivery Nasal Cannula Room Air O2 Flow Rate 1.0 Physical Exam General Appearance: The patient is alert. No acute distress, but is ill appearing. Eyes: Pupils are equal, round. No pallor, injection or icterus. ENT: Mucous membranes are moist. Normal oral mucosa. Posterior oropharynx is normal. Nasal mucosa erythema with mucous. Normal TMs and canals. Neck: Supple and non tender. Respiratory: Lungs are clear to auscultation. Cardiovascular: Regular rate and rhythm. No murmurs, gallops or rubs. Gastrointestinal: Abdomen is soft and non tender. Nondistended. Normal active bowel sounds. Neurological: Alert and oriented x3. Skin: Warm and dry. DIFFERENTIAL DIAGNOSIS: After history and physical exam, differential diagnosis was considered for shortness of breath including but not limited to pulmonary infectious process, COPD, asthma, pulmonary embolus and congestive heart failure. Medical Decision Making Data Points Result Diagram: 09/25/18 1623 09/25/18 1623 Laboratory Hematology Test 09/25/18 00:00 09/25/18 16:23 Influenza Virus Type A (PCR) Positive (NEGATIVE) Influenza Virus Type B (PCR) Negative (NEGATIVE) Red Blood Count 4.01 M/uL (4.17-5.56) Mean Corpuscular Volume 92.4 fL (80.0-96.0) Mean Corpuscular Hemoglobin 30.8 pg (26.0-33.0) Mean Corpuscular Hemoglobin Concent 33.3 g/dL (32.0-36.0) Red Cell Distribution Width 14.7 % (11.5-14.5) Mean Platelet Volume 6.4 fL (7.2-11.1) Neutrophils (%) (Auto) 82.7 % (39.4-72.5) Lymphocytes (%) (Auto) 6.4 % (17.6-49.6) Monocytes (%) (Auto) 10.4 % (4.1-12.4) Eosinophils (%) (Auto) 0.2 % (0.4-6.7) Basophils (%) (Auto) 0.3 % (0.3-1.4) Nucleated RBC Relative Count (auto) 0.0 /100WBC Neutrophils # (Auto) 7.1 K/uL (2.0-7.4) Lymphocytes # (Auto) 0.6 K/uL (1.3-3.6) Monocytes # (Auto) 0.9 K/uL (0.3-1.0) Eosinophils # (Auto) 0.0 K/uL (0.0-0.5) Basophils # (Auto) 0.0 K/uL (0.0-0.1) Nucleated RBC Absolute Count (auto) 0.00 K/uL Peripheral Blood Smear Yes Y/N D-Dimer Quantitative (PE/DVT) 0.45 ug/ml (0-0.50) Sodium Level 136 mmol/L (137-145) Potassium Level 4.3 mmol/L (3.5-5.0) Chloride Level 102 mmol/L (98-107) Carbon Dioxide Level 25 mmol/L (22-31) Blood Urea Nitrogen 15 mg/dl (7-18) Creatinine 0.60 mg/dl (0.52-1.04) Glomerular Filtration Rate Calc > 60.0 Random Glucose 98 mg/dl (75-110) Calcium Level 9.0 mg/dl (8.4-10.2) Total Bilirubin 0.2 mg/dl (0.2-1.3) Aspartate Amino Transf (AST/SGOT) 28 U/L (0-35) Alanine Aminotransferase (ALT/SGPT) 28 U/L (0-56) Alkaline Phosphatase 76 U/L (0-126) Troponin I < 0.012 ng/ml B-Type Natriuretic Peptide 18 pg/ml (0-100) Total Protein 7.1 g/dl (6.3-8.2) Albumin 3.9 g/dl (3.5-5.0) Chemistry Test 09/25/18 00:00 09/25/18 16:23 Influenza Virus Type A (PCR) Positive (NEGATIVE) Influenza Virus Type B (PCR) Negative (NEGATIVE) White Blood Count 8.6 k/uL (4.5-11.0) Red Blood Count 4.01 M/uL (4.17-5.56) Hemoglobin 12.3 g/dL (12.0-16.0) Hematocrit 37.0 % (34.0-47.0) Mean Corpuscular Volume 92.4 fL (80.0-96.0) Mean Corpuscular Hemoglobin 30.8 pg (26.0-33.0) Mean Corpuscular Hemoglobin Concent 33.3 g/dL (32.0-36.0) Red Cell Distribution Width 14.7 % (11.5-14.5) Platelet Count 516 K/uL (150-450) Mean Platelet Volume 6.4 fL (7.2-11.1) Neutrophils (%) (Auto) 82.7 % (39.4-72.5) Lymphocytes (%) (Auto) 6.4 % (17.6-49.6) Monocytes (%) (Auto) 10.4 % (4.1-12.4) Eosinophils (%) (Auto) 0.2 % (0.4-6.7) Basophils (%) (Auto) 0.3 % (0.3-1.4) Nucleated RBC Relative Count (auto) 0.0 /100WBC Neutrophils # (Auto) 7.1 K/uL (2.0-7.4) Lymphocytes # (Auto) 0.6 K/uL (1.3-3.6) Monocytes # (Auto) 0.9 K/uL (0.3-1.0) Eosinophils # (Auto) 0.0 K/uL (0.0-0.5) Basophils # (Auto) 0.0 K/uL (0.0-0.1) Nucleated RBC Absolute Count (auto) 0.00 K/uL Peripheral Blood Smear Yes Y/N D-Dimer Quantitative (PE/DVT) 0.45 ug/ml (0-0.50) Glomerular Filtration Rate Calc > 60.0 Calcium Level 9.0 mg/dl (8.4-10.2) Total Bilirubin 0.2 mg/dl (0.2-1.3) Aspartate Amino Transf (AST/SGOT) 28 U/L (0-35) Alanine Aminotransferase (ALT/SGPT) 28 U/L (0-56) Alkaline Phosphatase 76 U/L (0-126) Troponin I < 0.012 ng/ml B-Type Natriuretic Peptide 18 pg/ml (0-100) Total Protein 7.1 g/dl (6.3-8.2) Albumin 3.9 g/dl (3.5-5.0) Coagulation Test 09/25/18 16:23 D-Dimer Quantitative (PE/DVT) 0.45 ug/ml EKG/Imaging Imaging EXAMINATION: Chest 2 Views HISTORY: Chest pain. COMPARISON: 01/22/2018. FINDINGS: The lungs are clear. No focal consolidation or pleural fluid. No pneumothorax. Normal cardiomediastinal silhouette, with normal heart size and pulmonary vascularity. No acute osseous findings in the chest. Mild thoracolumbar scoliosis. Plate and screw fixation along the cervical spine. Surgical clips in the upper abdomen. IMPRESSION: No evidence of acute cardiopulmonary disease. Report Dictated By: Rich Kaminsik MD at 09/25/2018 5:18 PM ED Course/Re-evaluation ED Course Influenza A positive. Chest x-ray negative for pneumonia. Out of the time window for use of Tamiflu. Still needing oxygen for hypoxia. Arranging home oxygen. Decision to Disposition Date: Sep 25, 2018 Decision to Disposition Time: 18:33 Depart Departure Latest Vital Signs Vital Signs Date Time Temp Pulse Resp B/P (MAP) Pulse Ox O2 Delivery O2 Flow Rate FiO2 09/25/18 18:35 100 23 91 09/25/18 18:34 Room Air 09/25/18 18:30 121/67 (85) 09/25/18 18:07 1.0 Impression: Primary Impression: Influenza Additional Impression: Hypoxia Condition: Improved Disposition: HOME OR SELF-CARE Referrals: BRAD SALINAS APRN DIRECTOR OF GLOBAL MARKETING-C (PCP) New Scripts Guaifenesin/Codeine (GUAIFENESIN-CODEINE SYRUP) 5 Ml Syrp 5 ML PO Q6H PRN for COUGH, #120 ML 0 Refills Prov: ISRAEL BLANCAS MD 09/25/18 Departure Forms: Home Oxygen, Nebulizer RX Durable Medical Equipment- Oxygen: Oxygen Concentrator, Portable Oxygen Gas Reason for Use/Diagnosis: influenza, hypoxia Start Date of the Order: Sep 25, 2018 Dosage or Concentration (if applicable) - LPM: 2 Route of Administration (if applicable): Nasal Cannula Frequency of Use: Continuous Duration Home O2 Required: 4 Duration Units: Weeks Room Air Oxygen Saturation: 85 ER Prescribing Physician's Name: Israel Blancas NPI Numbers for Local ER MDs: Magalis [id number] Patient Instructions: Influenza (ED) Additional Instructions: Guaifenesin with Codeine cough medicine, 1 teaspoon every 4 hours as needed for cough. During the day take Mucinex and increase fluid intake. Tylenol as needed for fevers or cough. Home oxygen at two liters until feeling better. Follow-up with primary care provider. Problem Qualifiers ISRAEL BLANCAS MD Sep 25, 2018 16:00
[2018-09-25] MEDS ORDERED: NS(*) 0.9% 1000 ML BAG 1,000 ML IV ONE (16:25)
[2018-09-25] MEDS ORDERED: ASPIRIN 81 MG CHEW PO ONE (16:25)
--- NOTE | 2018-09-25 16:30 | EKG ---
FACILITY: [facility] - [place] PATIENT NAME: LUCINDA HANDLEY : [id number] MR: [id number] V: [id number] EXAM DATE: ORDERING PHYSICIAN: SAMANTHA LANCE TECHNOLOGIST: CHING Gill Reason : RESPIRATORY Blood Pressure : / mmHG Vent. Rate : 096 BPM Atrial Rate : 096 BPM P-R Int : 138 ms QRS Dur : 076 ms QT Int : 334 ms P-R-T Axes : 058 -01 036 degrees QTc Int : 421 ms Normal sinus rhythm Possible biatrial enlargement When compared with ECG of 12-AUG-2018 14:09, Previous ECG has undetermined rhythm, needs review Confirmed by NATALIA NAIR ([id number]) on 09/25/2018 5:23:40 PM Referred By: Confirmed By:NATALIA NAIR
[2018-09-25 16:40] LABS: PLATELET COUNT, AUTOMATED 516 K/uL (150-450)
--- NOTE | 2018-09-25 17:24 | RADIOLOGY IMAGING REPORT ---
FACILITY: [facility] PATIENT NAME: Rand Gautam : 1965 MR: [id number] V: [id number] EXAM DATE: ORDERING PHYSICIAN: SAMANTHA LANCE TECHNOLOGIST: Location: [facility] Patient: Rand Gautam : 1965 Visit/Account:[id number] Date of Sevice: 09/25/2018 EXAMINATION: Chest 2 Views HISTORY: Chest pain. COMPARISON: 01/22/2018. FINDINGS: The lungs are clear. No focal consolidation or pleural fluid. No pneumothorax. Normal cardiomediastinal silhouette, with normal heart size and pulmonary vascularity. No acute osseous findings in the chest. Mild thoracolumbar scoliosis. Plate and screw fixation along the cervical spine. Surgical clips in the upper abdomen. IMPRESSION: No evidence of acute cardiopulmonary disease. Report Dictated By: Rich Kaminski MD at 09/25/2018 5:18 PM Report E-Signed By: Rich Kaminski MD at 09/25/2018 5:20 PM WSN:[id number]
[2018-09-25] MEDS ORDERED: ALBUTEROL/IPRATROPIUM 3 ML NEB NEB ONE (17:55)
[2018-09-25 18:30] VITALS: BP 121/67
[2018-09-25] MEDS ORDERED: ROBC PO (18:34)
== END 2018-09-25 18:57 | disposition home or self-care (01) ==
LOC: ER 16:16
DX: J11.1 Influenza due to unidentified influenza virus with other respiratory manifestations (principal); R09.02 Hypoxemia
CPT/HCPCS: 71046; 83880; 84484; 85025; 85379; 87502; 93005; 94640; 96360; 99284; J7030; J7620; 82040; 82247; 82310; 82374; 82435; 82565; 82947; 84075; 84132; 84155; 84295; 84450; 84460; 84520

== ENCOUNTER → 2018-10-05 | Outpatient (CLI) | payer OTHER ==
[2018-03-19 10:46] VITALS: BMI 29.4
[~2018-10-05] MED LIST changes: +ROBC PO
--- NOTE | 2018-10-05 09:43 | RADIOLOGY IMAGING REPORT ---
[place] [facility] [place]IENT NAME: Rand Gautam : 1965 MR: [id number] V: [id number] EXAM DATE: ORDERING PHYSICIAN: GIULIANA VASQUEZ TECHNOLOGIST: Location[place] [facility] [place] Patient: Rand Gautam : 1965 Visit/Account:[id number] Date of Sevice: 10/05/2018 Technique: CHEST PA LAT HISTORY: Cough Comparison studies: Chest radiographs September 25, 2018 FINDINGS: No acute airspace consolidation. No pleural effusion. The cardiomediastinal silhouette is unchanged. Dextroscoliotic curvature as well as lower cervical spinal fusion hardware is noted. IMPRESSION: 1. No acute cardiopulmonary process. Report Dictated By: Yg Maria DO at 10/05/2018 9:36 AM Report E-Signed By: Yg Maria DO at 10/05/2018 9:38 AM WSN:[id number]
== END ==
LOC: RAD 09:13
PROVIDERS: ATTEND Family Medicine
DX: R05 Cough (principal)
CPT/HCPCS: 71046

== ENCOUNTER 2018-10-16 00:33 | Day surgery (SDC) | payer OTHER ==
[2018-03-19 10:46] VITALS: Ht 167.6 cm; Wt 88.0 kg
[~2018-10-16] VITALS: Ht 167.6 cm; Wt 88.0 kg
[2018-10-16] VITALS (8 sets, daily range): BP systolic 101–152; BP diastolic 71–98
[~2018-10-16 00:33] MED LIST changes: +AZIT-17 PO; +PRED-1 PO; +THIA50TA PO; -THIA50TA10 PO
[2018-10-16] MEDS ORDERED: NORMOSOL R SOLN(*) 1000 ML BAG 1,000 ML IV PRN (06:15)
[2018-10-16] MEDS ORDERED: LIDOCAINE/SOD BICARB 8.4% SYR ID ONE (06:15)
[2018-10-16] MEDS ORDERED: CLINDAMYCIN(*) 900 MG/NS 50 ML 50 ML IVPB ONE (06:15)
[2018-10-16] MEDS ORDERED: CELECOXIB 200 MG CAP PO ONE (06:15)
[2018-10-16] MEDS ORDERED: MIDAZOLAM 2 MG/2 ML VIAL IVP PRN (06:15)
[2018-10-16] MEDS ORDERED: LIDOCAINE 1%MDV(*)200 MG/20 ML 1 ML ONE ×2 (06:37→06:55)
[2018-10-16] MEDS ORDERED: methylPREDNIS ACE 40MG/ML VIAL ONE ×2 (06:37→06:50)
[2018-10-16] MEDS ORDERED: ROPIVACAINE 0.2% 20 ML VIAL ONE (06:37)
[2018-10-16] MEDS ORDERED: fentaNYL CITR 100 MCG/2 ML AMP ONE (06:53)
[2018-10-16] MEDS ORDERED: LIDOCAINE MPF 1% 5 ML VIAL ONE ×2 (06:54→07:02)
[2018-10-16] MEDS ORDERED: PROPOFOL EMUL(*) 10MG/ML 20 ML 20 ML ONE ×2 (06:54→07:02)
[2018-10-16] MEDS ORDERED: ONDANSETRON 4 MG/2 ML VIAL ONE ×2 (06:54→07:02)
[2018-10-16] MEDS ORDERED: BUPIVACAINE 0.5% INJ 50ML VIAL INFIL ONE (06:55)
[2018-10-16] MEDS ORDERED: DEXAMETHASONE SOD 4 MG/ML VIAL ONE (07:02)
[2018-10-16] MEDS ORDERED: BACITRACIN/POLYMY B OINT 15 GM TP ONE (07:46)
[2018-10-16] MEDS ORDERED: HYDR-385 PO (08:25)
--- NOTE | 2018-10-16 09:37 | OPERATIVE REPORT 1 ---
EVENT DATE: October 16, 2018 SURGEON: Juan Carlos Sanchez MD DIRECTOR OF REHABILITATION: Castro Marinelli PA-C ANESTHESIOLOGIST: Zaheer Santiago MD ANESTHESIA: MAC/local PREOPERATIVE DIAGNOSIS Numbness and tingling in bilateral arms and hands related to cervical spine pathology with findings of mild carpal tunnel syndrome, status post left open carpal tunnel release with minimal change in symptoms but requesting right open carpal tunnel release and steroid injection of left shoulder for additional pain at the acromioclavicular joint and subacromial space. PROCEDURE PERFORMED 1. Right open carpal tunnel release; 2. Left shoulder subacromial steroid injection; 3. Left shoulder acromioclavicular joint injection; DESCRIPTION OF PROCEDURE The patient was brought into the operating room and placed on the operating table in the supine position. After obtaining adequate intravenous sedation, a 50/50 mix of lidocaine and Marcaine was infiltrated in the operative site on the right hand. In association with this, we also prepped the posterior aspect of the shoulder and injected 80 mg of Depo-Medrol with 8 cc's of lidocaine into the subacromial space as well as 1 cc of Depo-Medrol and 1 cc of lidocaine into the AC joint. We then proceeded with the surgical procedure for the right upper extremity. The limb was exsanguinated and the tourniquet was inflated at 250 mmHg after adequate prep and drape. A longitudinal incision was made in the palm deep into the skin and subcutaneous tissue by blunt spreading. The palmar fascia was identified with self-retaining retractors and this was entered and divided, exposing the underlying transverse carpal ligament. The self-retaining retractors were deepened, exposing the remainder of the transverse carpal ligament, which was then divided continuing distally until completing the release through all the fascial tissue and then spreading above and below the distal aspect of the antebrachial tissue and releasing this as well. The radial leaflet of the transverse carpal ligament was elevated and I bluntly spread the median nerve away from its undersurface, continuing radially until identifying the flexor pollicis longus and then moving distally to confirm that the medians motor branch and terminal sensor branches were in good condition. The wound was irrigated. I checked the completeness of the release with my small finger to ensure there was no additional tight structures. We irrigated one last time and then deflated the tourniquet, controlled bleeding with bipolar cautery followed by closure with nylon and then placement of a dry sterile dressing and a volar splint. She was awakened and transferred to the recovery area in stable condition. YOAV
== END 2018-10-16 09:20 | disposition home or self-care (01) ==
LOC: OR 00:33
PROVIDERS: ATTEND Orthopaedic Surgery Hand Surgery
DX: G56.01 Carpal tunnel syndrome, right upper limb (principal); R20.0 Anesthesia of skin
CPT/HCPCS: 20605; 20610; 64721; A4565; J1030; J2001; J2250; J2405; J2704; J2795; J3010; J3490; J1100

== ENCOUNTER → 2018-10-20 | Outpatient (CLI) | payer OTHER ==
[2018-03-19 10:46] VITALS: BMI 29.4
--- NOTE | 2018-10-20 13:27 | RADIOLOGY IMAGING REPORT ---
FACILITY: [facility] PATIENT NAME: Rand Gautam : 1965 MR: [id number] V: [id number] EXAM DATE: ORDERING PHYSICIAN: GIULIANA VASQUEZ TECHNOLOGIST: Location: [facility] Patient: Rand Gautam : 1965 Visit/Account:[id number] Date of Sevice: 10/20/2018 Exam type: CHEST PA LAT History: Trouble breathing, not feeling well since Friday Comparison: October 05, 2018. Findings: There patchy infiltrates in the right perihilar region extending to the right lung base and throughou t the upper and lower lung blount, left. There is no evidence of pleural effusions. The cardiac debi houette is normal in size. There is an S-shaped scoliosis of the thoracolumbar spine. IMPRESSION: 1. Patchy bilateral pulmonary infiltrates concerning for multifocal pneumonia Results were called to Dr. Alon Nazario at 10/20/2018 1:23 PM. Report Dictated By: Vanessa Grant MD at 10/20/2018 1:19 PM Report E-Signed By: Vanessa Grant MD at 10/20/2018 1:23 PM WSN:[email or web address]
== END ==
LOC: RAD 11:29
PROVIDERS: ATTEND Family Medicine
DX: R91.8 Other nonspecific abnormal finding of lung field (principal)
CPT/HCPCS: 71046

== ENCOUNTER → 2018-10-30 | Outpatient (CLI) | payer OTHER ==
[2018-03-19 10:46] VITALS: BMI 29.4
--- NOTE | 2018-10-30 13:32 | RADIOLOGY IMAGING REPORT ---
FACILITY: [facility] - [place] PATIENT NAME: Rand Gautam : 1965 MR: [id number] V: [id number] EXAM DATE: ORDERING PHYSICIAN: GIULIANA VASQUEZ TECHNOLOGIST: Location: [facility] - [place], [place] Patient: Rand Gautam : 1965 Visit/Account:[id number] Date of Sevice: 10/30/2018 Exam type: CHEST PA LAT History: Influenza a one month ago, respiratory infection x3 weeks ago, pneumonia 1-2 weeks, shortnes s of breath and cough Comparison: October 20, 2018. Findings: The bilateral patchy pulmonary infiltrates have partially resolved. Only a small amount of peribronc hial thickening is now noted in the medial left lower lobe and to lesser extent medial right lower lo be. No evidence of pleural effusions. The cardiac silhouette appears normal. Incompletely imaged a re postsurgical changes from anterior fusion of the cervical spine. S-shaped scoliosis of the thorac olumbar spine again seen in addition to surgical clips in the right upper quadrant of abdomen IMPRESSION: 1. There has been partial clearing of the bilateral pulmonary infiltrates with only a small amount o f peribronchial thickening now noted in the lower lobes. Report Dictated By: Vanessa Grant MD at 10/30/2018 1:27 PM Report E-Signed By: Vanessa Grant MD at 10/30/2018 1:29 PM WSN:[email or web address]
== END ==
LOC: RAD 12:06
PROVIDERS: ATTEND Family Medicine
DX: R91.8 Other nonspecific abnormal finding of lung field (principal)
CPT/HCPCS: 71046

== ENCOUNTER → 2018-11-06 | Outpatient (CLI) | payer OTHER ==
[2018-03-19 10:46] VITALS: BMI 29.4
[~2018-11-06] MED LIST changes: +ALBU8.5H INH; +CEF300 PO; +DOXY-179 PO; +DOXY-181 PO; +DUL100/5PT INH
--- NOTE | 2018-11-06 12:00 | RADIOLOGY IMAGING REPORT ---
FACILITY: [facility] [place] PATIENT NAME: Rand Gautam : 1965 MR: [id number] V: [id number] EXAM DATE: ORDERING PHYSICIAN: CLIFF PAGAN TECHNOLOGIST: Location: [facility] Patient: Rand Gautam : 1965 Visit/Account:[id number] Date of Sevice: 11/06/2018 CT VERTEBRA CERVICAL (NON CON) EXAMINATION: Cervical spine CT Additional Pertinent history: History of surgery cervical spine hardware. COMPARISON STUDIES: Cervical spine radiograph 03/19/2018. TECHNIQUE: Axial images were obtained from the skull base through the upper thoracic spine without I V contrast administration. Coronal and sagittal reformatted images were obtained from the axial [facility] e data. One of the following dose optimization techniques was utilized in the performance of this exam: autom ated exposure control; adjustment of the mA and/or kV according to the patient's size; or use of an i terative reconstruction technique. Specific details can be referenced in the facility's radiology CT exam operational policy. FINDINGS: Pre-vertebral soft tissues: negative Alignment: There is straightening of the normal cervical lordosis. Facets are in normal position. Vertebral bodies: There are postoperative changes with interdisc spaces and fusion hardware at C4-5, C5-6, and C6-7. Posterior elements: Facets are in normal position. Benign bone island is seen in the posterior spino us process of C7. Disc Spaces: Interdisc spacers are seen at C4-5, C5-6, and C6-7. Remaining disc spaces are normal. On a level by level basis findings are as follows C2-3: The spinal canal and neural foramen are patent. C3-4: The spinal canal and neural foramen are patent. C4-5: The spinal canal and neural foramen are patent. C5-6: Central canal and left neural foramen are patent. There is mild narrowing of the right neural foramen secondary to uncinate process hypertrophy. C6-7: The spinal canal and neural foramen are patent. C7-T1: The spinal canal and neural foramen are patent. Visualized lung / mediastinum: Minimal scarring is seen in the right lung apex. IMPRESSION: 1. Postoperative changes with interdisc spacers and anterior fusion C4-5, C5-6, and C6-7. This is u nchanged from comparison plain film 03/19/2018. 2. No evidence of loosening. 3. Mild right neural foraminal stenosis C5-6 secondary to uncinate process hypertrophy. Report Dictated By: Oswald Ross at 11/06/2018 11:50 AM Report E-Signed By: Oswald Ross at 11/06/2018 11:57 AM WSN:[id number]
== END ==
LOC: CT 06:48
PROVIDERS: ATTEND Orthopaedic Surgery Hand Surgery
DX: M54.2 Cervicalgia (principal); Z98.890 Other specified postprocedural states
CPT/HCPCS: 72125

== ENCOUNTER 2018-11-07 05:13 | Inpatient (IN) | payer OTHER ==
[2018-03-19 10:46] VITALS: Wt 92.6 kg
[~2018-11-07 05:13] MED LIST changes: -ALBU8.5H INH; -CEF300 PO; -DOXY-179 PO; -DOXY-181 PO; -DUL100/5PT INH
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
[2018-11-07] MEDS ORDERED: ASPIRIN 81 MG CHEW PO ONE (05:25)
[2018-11-07] MEDS ORDERED: fentaNYL CITR 100 MCG/2 ML AMP IVP ONE (05:25)
[2018-11-07] MEDS ORDERED: ONDANSETRON 4 MG/2 ML VIAL IVP ONE (05:25)
[2018-11-07] MEDS ORDERED: NS(*) 0.9% 1000 ML BAG 1,000 ML IV ONE ×2 (05:30→07:15)
[2018-11-07] MEDS ORDERED: ALBUTEROL/IPRATROPIUM 3 ML NEB NEB ONE (05:30)
[2018-11-07] MEDS ORDERED: methylPREDNIS SUCC 125 MG/2ML IVP ONE (05:30)
[2018-11-07 05:33] LABS: PLATELET COUNT, AUTOMATED 400 K/uL (150-450)
[2018-11-07 05:44] LABS: INR 0.97
[2018-11-07] MEDS ORDERED: LEVO750T27 PO (05:45)
[2018-11-07] MEDS ORDERED: DOXY-181 PO (05:45)
[2018-11-07] MEDS ORDERED: IOPAMIDOL 76% 150 ML INFUS BTL 150 ML ONE (06:05)
[2018-11-07] MEDS ORDERED: NS(*) 0.9% 50 ML BAG 50 ML ONE (06:06)
--- NOTE | 2018-11-07 06:30 | EKG ---
FACILITY: [facility] PATIENT NAME: LUCINDA HANDLEY : [id number] MR: [id number] V: [id number] EXAM DATE: ORDERING PHYSICIAN: ISHA FINLEY TECHNOLOGIST: HENRY Test Reason : DYSPNEA Blood Pressure : / mmHG Vent. Rate : 124 BPM Atrial Rate : 124 BPM P-R Int : 132 ms QRS Dur : 078 ms QT Int : 324 ms P-R-T Axes : 052 -03 054 degrees QTc Int : 465 ms Sinus tachycardia with fusion complexes Otherwise normal ECG When compared with ECG of 25-SEP-2018 15:57, fusion complexes are now present Confirmed by JOHNNY GANDARA ([id number]) on 11/07/2018 6:45:56 AM Referred By: Confirmed By:JOHNNY GANDARA
[2018-11-07] MEDS ORDERED: DUL100/5PT INH (06:49)
[2018-11-07] MEDS ORDERED: ALBU8.5H INH (06:49)
[2018-11-07] MEDS ORDERED: MORPHINE 4 MG/ML SDV IVP ONE (06:55)
--- NOTE | 2018-11-07 07:03 | RADIOLOGY IMAGING REPORT ---
[place] [facility] [place] Rand Gautam : 1965 MR: [id number] V: [id number] EXAM DATE: ORDERING PHYSICIAN: ISHA FINLEY TECHNOLOGIST: Location: [facility] [place] Patient: Rand Gautam : 1965 Visit/Account:[id number] Date of Sevice: 11/07/2018 CT PE DATE: 11/07/2018 6:51 AM INDICATION: Recent pneumonia, increased dyspnea. COMPARISON: Chest radiographs 10/30/2018 and previous. TECHNIQUE: Axial CT angiogram was obtained through the chest with intravenous contrast. Sagittal an d coronal MPR and MIP coronal reformations were also generated. 75 mL isovue 370. One of the follow ing dose optimization techniques was utilized in the performance of this exam: Automated exposure con trol; adjustment of the mA and/or kV according to the patient's size; or use of an iterative reconst ruction technique. Specific details can be referenced in the facility's radiology CT exam operationa l policy. FINDINGS: Thyroid / Thoracic Inlet: Imaged thyroid is unremarkable. Mildly enlarged lymph nodes in the left lo wer neck are likely reactive. Pulmonary Arteries: No apparent pulmonary embolism. Heart and Aorta: Normal-size heart with no pericardial effusion. Nonaneurysmal thoracic aorta. Mediastinum and Radha: Mildly enlarged mediastinal and hilar lymph nodes are likely reactive. Lungs and Pleura: Multifocal bilateral patchy and groundglass pulmonary opacities with greatest invol vement in the lingula, most consistent with multifocal pneumonia. There may be trace left pleural ef fusion. No pneumothorax. Breast and Axilla: No axillary lymphadenopathy. Upper Abdomen: No visualized acute abnormality. Postoperative changes to the stomach consistent wit h bariatric surgery. Bones and Soft Tissues: No suspicious osseous or soft tissue abnormality. IMPRESSION: 1. No pulmonary embolism. 2. Multifocal bilateral pulmonary opacities most consistent with pneumonia. Greatest involvement in the lingula. Consider follow-up to resolution to exclude underlying lesion. Report Dictated By: Navid Ward MD at 11/07/2018 6:51 AM Report E-Signed By: Navid Ward MD at 11/07/2018 6:58 AM WSN:[id number]
[2018-11-07] MEDS ORDERED: CEFEPIME HCL 2 GM VIAL IVP ONE (07:30)
[2018-11-07] MEDS ORDERED: KETAMINE HCL-NS 50 MG/5 ML SYR IVP ONE (07:50)
[2018-11-07 08:34] VITALS: BP 143/79
[2018-11-07] MEDS ORDERED: FLUSH 10 ML SYR IVP PRN (08:45)
--- NOTE | 2018-11-07 09:01 | History & Physical ---
History of Present Illness Chief Complaint Short of breath and chest pain History of Present Illness 53yo female with PMHx significant for HTN, fibromyalgia. She reports onset of fevers, chills, myalgias beginning in late August at which time she was diagnosed with influenza A. Apparently, she was not placed on antiviral therapy because "it was too late" into her symptoms. She did have influenza vaccine this year. She states she did not seem to improve over the following weeks. She had intermittent fever/chills. She had persistent dry cough and dyspnea. She has had increasing fatigue and generalized weakness. She has had sharp left chest pain with deep breathing/coughing. She has continued to try working. She was evaluated in the ER and found to have bilateral infiltrates on CXR with associated hypoxia and elevated WBC count. CT pulmonary angiogram is negative for PE. She was recommended for admission. History Problems: (1) HTN (hypertension) Status: Chronic (2) Hypothyroidism Status: Chronic (3) Osteopenia Status: Chronic (4) Thrombocytosis Status: Chronic (5) Fibromyalgia Status: Chronic (6) Chronic back pain Status: Chronic (7) History of cholecystectomy Status: Resolved (8) History of colonoscopy Status: Resolved (9) History of gastric bypass Status: Resolved (10) S/P cervical spinal fusion Status: Resolved Home Meds Active Scripts Guaifenesin/Codeine (GUAIFENESIN-CODEINE SYRUP) 5 Ml Syrp, 5 ML PO Q6H PRN for COUGH, #120 ML 0 Refills Prov:SAMANTHA LANCE MD 09/25/18 Levothyroxine Sodium (LEVOTHYROXINE SODIUM) 25 Mcg Tablet, 1 TAB PO QDAY, #90 TAB 1 Refill Prov:BRAD SALINAS APRN-Parveen 02/24/18 Diclofenac Sodium (Diclofenac Sodium) 1 % Gel..gram., 2 GM TOP QID PRN for PAIN, #100 GM 2 Refills Prov:BRAD SALINAS APRN-Parveen 02/18/18 Rizatriptan Benzoate (MAXALT) 5 Mg Tablet, 1 TAB PO DAILY PRN for MIGRAINE, #15 TAB 5 Refills If no effect after 2 hours you may take a second tablet Prov:BRAD SALINAS APRN 08/25/17 Reported Medications Mometasone/Formoterol (DULERA 100 MCG/5 MCG INHALER) 13 Gm Inh, 2 PUFF INH QDAY, INH 11/07/18 Albuterol Sulfate 90 Mcg/Act (PROAIR HFA 90 MCG/ACT) 8.5 Gm Hfa.aer.ad, 2 PUFF INH TID 11/07/18 Levofloxacin 750 Mg Tab (LEVOFLOXACIN 750 MG TAB) 750 Mg Tablet, 1 TAB PO QDAY for 5 Days 11/07/18 Pantoprazole Sodium (PANTOPRAZOLE SODIUM) 40 Mg Tablet.dr, 40 MG PO QDAY, TAB.SR 09/25/18 Lisinopril (LISINOPRIL) 10 Mg Tablet, 10 MG PO QDAY, TAB 09/11/18 Duloxetine Hcl (CYMBALTA) 30 Mg Capsule.dr, 30 MG PO HS, #5 CAP 09/11/18 Duloxetine Hcl (CYMBALTA) 60 Mg Capsule.dr, 60 MG PO QDAY, #5 CAP 03/11/18 Colloidal Oatmeal (Eczema) 140 Gm Lotion, TOP PRN 03/11/18 Amitriptyline Hcl (AMITRIPTYLINE HCL) 50 Mg Tablet, 100 MG PO QHS, #10 TAB 03/11/18 Discontinued Reported Medications Doxycycline Hyclate (DOXYCYCLINE HYCLATE) 100 Mg Capsule, 1 CAP PO BID for 7 Days 11/07/18 Hydrocodone Bit/Acetaminophen (HYDROCODON-ACETAMINOPHEN 5-325) 1 Each Tablet, 1- 2 EACH PO Q4-6H PRN for PAIN, #30 TAB 10/16/18 Azithromycin (Z-PACK) 250 Mg Tablet, 0 PO QDAY, #6 DOSE-PACK 10/08/18 Prednisone 10 Mg Tab (PREDNISONE 10 MG TAB) 10 Mg Tablet, 10 MG PO BID, #6 TAB 10/08/18 Allergies: Coded Allergies: Penicillins (Verified Allergy, Intermediate, 09/25/18) Patient History: FH: COPD (chronic obstructive pulmonary disease) FH: diabetes mellitus FH: lung cancer Other Social/Family Hx She is . She works at [employer] in [employer]. Hx Smoking: Yes Smoking Status: Former Smoker Caffeine Intake: Soda Caffeine/Cups Per Day: OCCASIONAL Hx Alcohol Use: No Hx Substance Use Disorder: Yes Social Drug Use: Former Social Drugs: Prescription Drugs Review of Systems Constitutional: Fever, Chills Neurological: Weakness Cardiovascular: Chest Pain Respiratory: Shortness of Breath, Cough Gastrointestinal: No Nausea, No Vomiting, No Diarrhea, No Hematemesis, No Hematochezia, No Melena, No Abdominal Pain Genitourinary: No Dysuria, No Hematuria, No Urinary Incontinence Exam Vital Signs Vital Signs Date Time Temp Pulse Resp B/P (MAP) Pulse Ox O2 Delivery O2 Flow Rate FiO2 11/07/18 08:34 98.7 93 36 143/79 (100) 95 Room Air 11/07/18 06:14 2.0 General Appearance: Alert, Awake Neuro: No Gross deficits Eyes: PERRLA ENT: Oropharynx Clear Neck: No Masses Cardiovascular: Regular Rate and Rhythm Respiratory: Other (bibasilar rales more prominent on right) Chest: No Tenderness GI: Abd Soft and Non-Tender : No CVA Tenderness Lymph: No Adenopathy Extremities: Warm, Perfused Integumentary: Skin Intact without Lesion / Mass Psych: Alert & Oriented X3 Medical Decision Making Data Points Result Diagram: 11/07/1852311/07/18523 Item Value Date Time D-Dimer Quantitative (PE/DVT) 1.76 ug/ml H 11/07/18523 Activated Partial Thromboplast Time 32 seconds 11/07/18 05 Prothromb Time International Ratio 0.97 11/07/18523 Prothrombin Time 12.8 seconds 11/07/18 05 B-Type Natriuretic Peptide 42 pg/ml 11/07/18 05 Albumin 3.9 g/dl 11/07/18 05 Total Protein 6.9 g/dl 11/07/18523 Troponin I < 0.012 ng/ml 11/07/18523 Alkaline Phosphatase 75 U/L 11/07/18 0524 Alanine Aminotransferase (ALT/SGPT) 33 U/L 11/07/18 0524 Aspartate Amino Transf (AST/SGOT) 31 U/L 11/07/18 05 Total Bilirubin 0.7 mg/dl 11/07/18 0524 Calcium Level 9.0 mg/dl 11/07/18 05 Lactate 2.0 mmol/L 11/07/18 05 EKG / Imaging Imaging PATIENT NAME: Rand Gautam : 1965 MR: [id number] V: [id number] EXAM DATE: ORDERING PHYSICIAN: ISHA FINLEY TECHNOLOGIST: Location: [facility] Patient: Rand Gautam : 1965 Visit/Account:[id number] Date of Sevice: 11/07/2018 CT PE DATE: 11/07/2018 6:51 AM INDICATION: Recent pneumonia, increased dyspnea. COMPARISON: Chest radiographs 10/30/2018 and previous. TECHNIQUE: Axial CT angiogram was obtained through the chest with intravenous contrast. Sagittal and coronal MPR and MIP coronal reformations were also generated. 75 mL isovue 370. One of the following dose optimization techniques was utilized in the performance of this exam: Automated exposure control; adjustment of the mA and/or kV according to the patient's size; or use of an it erative reconstruction technique. Specific details can be referenced in the facility's radiology CT exam operational policy. FINDINGS: Thyroid / Thoracic Inlet: Imaged thyroid is unremarkable. Mildly enlarged lymph nodes in the left lower neck are likely reactive. Pulmonary Arteries: No apparent pulmonary embolism. Heart and Aorta: Normal-size heart with no pericardial effusion. Nonaneurysmal thoracic aorta. Mediastinum and Radha: Mildly enlarged mediastinal and hilar lymph nodes are likely reactive. Lungs and Pleura: Multifocal bilateral patchy and groundglass pulmonary opaci ties with greatest involvement in the lingula, most consistent with multifocal pneumonia. There may be trace left pleural effusion. No pneumothorax. Breast and Axilla: No axillary lymphadenopathy. Upper Abdomen: No visualized acute abnormality. Postoperative changes to the stomach consistent with bariatric surgery. Bones and Soft Tissues: No suspicious osseous or soft tissue abnormality. IMPRESSION: 1. No pulmonary embolism. 2. Multifocal bilateral pulmonary opacities most consistent with pneumonia. Greatest involvement in the lingula. Consider follow-up to resolution to exclude underlying lesion. Report Dictated By: Navid Ward MD at 11/07/2018 6:51 AM Report E-Signed By: Navid Ward MD at 11/07/2018 6:58 AM WSN:[id number] Assessment and Plan Problems: (1) Pneumonia Status: Acute Assessment & Plan: She appears to have bilateral pneumonia. This could be related to her influenza ~5-6 weeks ago. Will cover her for the "more typical" organisms with IV cefepime and doxycycline. She could be a set up for staphylococcal pneumonia as well. She could easily have MRSA also ([facility] [place] Will add vancomycin for this reason. Cultures were obtained in the ER. Will also give supplemental oxygen and respiratory treatments as needed. Watch closely. (2) Chest pain Status: Acute Assessment & Plan: She has been having pleuritic chest pain for quite some time. Will try to control the pain with IV Toradol and morphine. She did receive a dose of steroids in the ER also. (3) HTN (hypertension) Status: Chronic Assessment & Plan: Will monitor BPs and resume her lisinopril as needed. (4) Hypothyroidism Status: Chronic Assessment & Plan: Continue L-thyroxine. (5) Fibromyalgia Status: Chronic Assessment & Plan: Continue Cymbalta and amitriptyline. Copies to: BRAD SALINAS APRN ICT TEACHER-C ; Venous Thromboembolism Antithrombotics Is Pt On Any Antithrombotics?: Yes Exam Sepsis Risk: Sepsis Risk Problem Qualifiers (1) Chest pain: Chest pain type: chest pain on breathing Qualified Codes: R07.1 - Chest pain on breathing EDMUNDO TAPIA MD Nov 07, 2018 09:01
[2018-11-07] MEDS ORDERED: KETOROLAC 30 MG/ML VIAL IVP ONE (09:25)
[2018-11-07] MEDS ORDERED: VANCOMYCIN(*) 1 GM VIAL 2 GM in NS(*) 0.9% 500 ML BAG 500 ML IVPB ONE (09:25)
[2018-11-07] MEDS: NS(*) 0.9% 1000 ML BAG 1,000 ML IV PRN (09:40)
[2018-11-07] MEDS: guaiFENesin 600 MG TABCR PO SCH ×2 (09:41→20:21)
[2018-11-07] MEDS: PANTOPRAZOLE SOD 40 MG TABEC PO SCH (09:41)
[2018-11-07] MEDS: LISINOPRIL 10 MG TAB PO SCH (09:41)
[2018-11-07] MEDS: ENOXAPARIN 40 MG/0.4ML SYR SC SCH (09:42)
[2018-11-07] MEDS: DULoxetine HCL 30 MG CAPCR PO SCH ×2 (09:44→20:21)
[2018-11-07] MEDS ORDERED: ALTEPLASE RECOMB 2 MG VIAL IVP ONE (11:10)
[2018-11-07] MEDS: DOXYCYCLINE HYCL 100 MG VIAL 100 MG in NS(*) 0.9% 250 ML BAG 250 ML IV SCH (12:34)
[2018-11-07 15:49] VITALS: BP 112/74
[2018-11-07] MEDS: CEFEPIME HCL 2 GM VIAL IVP SCH (20:19)
[2018-11-07] MEDS: VANCOMYCIN(*) 1 GM VIAL 1 GM, VANCOMYCIN (*) 0.5 GM VIAL 0.5 GM in NS(*) 0.9% 250 ML BA... IVPB SCH (20:19)
[2018-11-07] MEDS: ACETAMINOPHEN 325 MG TAB PO PRN (20:21)
[2018-11-07] MEDS: KETOROLAC 15 MG/ML VIAL IVP PRN (20:22)
[2018-11-07] MEDS: MORPHINE 2 MG/ML SYR IVP PRN (20:26)
[2018-11-07] MEDS: ALBUTEROL 2.5 MG/3 ML NEB NEB PRN (20:38)
[2018-11-07 21:49] VITALS: BP 108/63
[2018-11-07] MEDS: AMITRIPTYLINE HCL 25 MG TAB PO SCH (21:55)
[2018-11-08] MEDS: DOXYCYCLINE HYCL 100 MG VIAL 100 MG in NS(*) 0.9% 250 ML BAG 250 ML IV SCH ×2 (00:35→12:10)
[2018-11-08 05:54] LABS: PLATELET COUNT, AUTOMATED 316 K/uL (150-450)
[2018-11-08] MEDS: NS(*) 0.9% 1000 ML BAG 1,000 ML IV PRN (06:01)
[2018-11-08] MEDS: LEVOTHYROXINE SOD 0.025 MG TAB PO SCH (06:01)
[2018-11-08] MEDS: ACETAMINOPHEN 325 MG TAB PO PRN ×2 (06:05→20:21)
[2018-11-08] MEDS: KETOROLAC 15 MG/ML VIAL IVP PRN ×3 (06:05→18:15)
[2018-11-08] MEDS: MORPHINE 2 MG/ML SYR IVP PRN (06:06)
[2018-11-08] MEDS: ALBUTEROL 2.5 MG/3 ML NEB NEB PRN (06:16)
[2018-11-08 07:43] VITALS: BP 112/67
[2018-11-08] MEDS: CEFEPIME HCL 2 GM VIAL IVP SCH ×2 (07:48→20:18)
[2018-11-08] MEDS: LISINOPRIL 10 MG TAB PO SCH (09:00)
[2018-11-08] MEDS: ENOXAPARIN 40 MG/0.4ML SYR SC SCH (09:09)
[2018-11-08] MEDS: VANCOMYCIN(*) 1 GM VIAL 1 GM, VANCOMYCIN (*) 0.5 GM VIAL 0.5 GM in NS(*) 0.9% 250 ML BA... IVPB SCH ×2 (09:09→20:19)
[2018-11-08] MEDS: PANTOPRAZOLE SOD 40 MG TABEC PO SCH (09:09)
[2018-11-08] MEDS: guaiFENesin 600 MG TABCR PO SCH ×2 (09:09→20:20)
[2018-11-08] MEDS: DULoxetine HCL 30 MG CAPCR PO SCH ×2 (09:09→20:20)
--- NOTE | 2018-11-08 09:38 | Hospitalist Progress Note ---
Subjective Progress Notes Subjective The patient complains of pain with deep breathing. Physical Exam Vital Signs Date Time Temp Pulse Resp B/P (MAP) Pulse Ox O2 Delivery O2 Flow Rate FiO2 11/08/18 07:43 98.5 105 20 112/67 (82) 93 Nasal Cannula 1.0 Intake and Output 11/08/18 07:00 Intake Total 3320 ml Balance 3320 ml Intake Oral 1280 ml IV Total 2040 ml # Voids 1 General Appearance: Alert, Awake, Other (Appears ill.) Neuro: No Gross deficits Cardiovascular: Other (Tachy, regular.) Respiratory: Other (Clear anteriorly.) GI: Soft and Non-Tender Psych: Appropriate Mood & Affect Result Diagram: 11/08/1851711/08/18517 Assessment and Plan Problems: (1) Pneumonia Status: Acute Assessment & Plan: She has multifocal pneumonia. This could be related to her influenza ~5-6 weeks ago. Will cover her for the "more typical" organisms with IV cefepime and doxycycline. She could be a set up for staphylococcal pneumonia as well due to recent influenza. 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 Will add vancomycin for this reason. Cultures were obtained in the ER. Will also give supplemental oxygen and respiratory treatments as needed. Watch closely. (2) Chest pain Status: Acute Assessment & Plan: She has been having pleuritic chest pain for quite some time. Will try to control the pain with IV Toradol and morphine as needed. She did receive a dose of steroids in the ER also. (3) HTN (hypertension) Status: Chronic Assessment & Plan: Will monitor BPs and resume her lisinopril as needed. (4) Hypothyroidism Status: Chronic Assessment & Plan: Continue L-thyroxine. (5) Fibromyalgia Status: Chronic Assessment & Plan: Continue Cymbalta and amitriptyline. Time Spent on Plan of Care: < 30 min Exam Sepsis Risk: Sepsis Risk Problem Qualifiers (1) Chest pain: Chest pain type: chest pain on breathing Qualified Codes: R07.1 - Chest pain on breathing NATALIA TAPIA MD Nov 08, 2018 09:38
--- NOTE | 2018-11-08 10:00 | Pharmacy Note ---
Vancomycin Management Note Vanco Dosing Note Pharmacy Services Pharmacokinetic Dosing Consult, Vancomycin Pharmacy has been consulted for dosing and monitoring of vancomycin for 53 year old female for Pneumonia (possible MRSA so Vancomycin added). A 2 gm Load of Vancomycin was given on 11/07/17 then 1.5 gm IV q12h. Pertinent Past Medical History: History of Influenza A in late August 2018 (not treated with antivirals) Antibiotics prior to admission; Zpak and Levaquin outpatient started on 11/05/18 Additional Antimicrobials: Doxycycline 100 mg IV q12h Cefepime 2 gm IVP q12h Patient Information: Height (cm): 167.64 cm Actual Body Weight (ABW): 92.6 kg Pertinent Lab Tests WHITE BLOOD COUNT 13.2 11/07/18, 13.3 11/08/18 NEUTROPHILS 88.7 SCR 0.9 11/07/18, 0.6 11/08/18 VANCOMYCIN RANDOM 16.11 on 11/07/18 Culture Results: BLOOD culture in process Assessment: CrCl 101.59 ml/min (IBW), 124 ml/min (AjBW) Renal function is improving Vancomycin Monitoring Assessment Goal Vancomycin Trough Level: 15-20 Plan: 1) Vancomycin maintenance dose (based on ABW): 1.5 gm IV q12h 3) Vancomycin monitoring: Next trough due 11/09/18 0800 Pharmacy will continue to monitor daily and adjust regimen as appropriate. Thank you for the consult. BRIELLE FITCH Nov 08, 2018 10:00
[2018-11-08 12:12] VITALS: BP 123/77
[2018-11-08] MEDS: LEVALBUTEROL 1.25 MG/3 ML NEB NEB PRN ×2 (13:36→17:49)
[2018-11-08 17:42] VITALS: BP 128/63
[2018-11-08] MEDS: AMITRIPTYLINE HCL 25 MG TAB PO SCH (20:20)
[2018-11-09] MEDS: DOXYCYCLINE HYCL 100 MG VIAL 100 MG in NS(*) 0.9% 250 ML BAG 250 ML IV SCH (00:23)
[2018-11-09] MEDS: NS(*) 0.9% 1000 ML BAG 1,000 ML IV PRN (01:38)
[2018-11-09 01:39] VITALS: BP 138/93
[2018-11-09] MEDS: KETOROLAC 15 MG/ML VIAL IVP PRN ×2 (01:45→09:53)
[2018-11-09] MEDS: LEVOTHYROXINE SOD 0.025 MG TAB PO SCH (05:55)
[2018-11-09 06:44] VITALS: BP 149/94
[2018-11-09] MEDS: CEFEPIME HCL 2 GM VIAL IVP SCH (08:14)
[2018-11-09 08:25] LABS: PLATELET COUNT, AUTOMATED 370 K/uL (150-450)
[2018-11-09] MEDS ORDERED: DOXYCYCLINE HYCL 100 MG TAB PO SCH (09:00)
[2018-11-09] MEDS ORDERED: DOXY-179 PO (09:14)
[2018-11-09] MEDS ORDERED: CEF300 PO (09:14)
--- NOTE | 2018-11-09 09:19 | Hospitalist Depart ---
Discharge Summary Reason for Hosp/Final Diag: (1) Pneumonia Status: Acute Hospital Course & Plan: A CT scan did show bilateral pneumonia. She was started on empiric treatment with cefepime and doxycycline. She is afebrile and her WBC is now normal. We will discharge her on a course of cefdinir and doxycycline. (2) Chest pain Status: Acute Hospital Course & Plan: She has been having pleuritic chest pain for quite some time. A troponin was normal. (3) HTN (hypertension) Status: Chronic Hospital Course & Plan: She is on chronic treatment with lisinopril. (4) Hypothyroidism Status: Chronic Hospital Course & Plan: She is on chronic treatment with Synthroid. (5) Fibromyalgia Status: Chronic Hospital Course & Plan: She is on chronic treatment with Cymbalta and amitriptyline. Departure Latest Vital Signs Vital Signs 11/09/18 06:44 Temp 98.4 Pulse 86 Resp 22 B/P (MAP) 149/94 (112) Pulse Ox 97 O2 Delivery Nasal Cannula O2 Flow Rate 1.0 Weight (Pounds): 204 Weight (Ounces): 3.0 Result Diagram: 11/09/1880911/09/18809 Condition: Improved Discharge: Home, Self Care Discharge Instructions Home Meds Active Scripts Doxycycline Hyclate (DOXYCYCLINE HYCLATE) 100 Mg Tablet, 100 MG PO BID, #10 TAB Prov:JOHNNY GANDARA DO 11/09/18 Cefdinir 300 Mg Cap (OMNICEF 300 MG CAP (OR EQUIV)) 300 Mg Cap, 300 MG PO BID, #10 CAP Prov:JOHNNY GANDARA DO 11/09/18 Guaifenesin/Codeine (GUAIFENESIN-CODEINE SYRUP) 5 Ml Syrp, 5 ML PO Q6H PRN for COUGH, #120 ML 0 Refills Prov:SAMANTHA LANCE MD 09/25/18 Levothyroxine Sodium (LEVOTHYROXINE SODIUM) 25 Mcg Tablet, 1 TAB PO QDAY, #90 TAB 1 Refill Prov:BRAD SALINAS APRNP-C 02/24/18 Diclofenac Sodium (Diclofenac Sodium) 1 % Gel..gram., 2 GM TOP QID PRN for PAIN, #100 GM 2 Refills Prov:BRAD SALINAS APRN GENERATOR SWITCHBOARD OPERATOR-C 02/18/18 Rizatriptan Benzoate (MAXALT) 5 Mg Tablet, 1 TAB PO DAILY PRN for MIGRAINE, #15 TAB 5 Refills If no effect after 2 hours you may take a second tablet Prov:BRAD SALINAS APRN GENERATOR SWITCHBOARD OPERATOR-C 08/25/17 Reported Medications Mometasone/Formoterol (DULERA 100 MCG/5 MCG INHALER) 13 Gm Inh, 2 PUFF INH QDAY, INH 11/07/18 Albuterol Sulfate 90 Mcg/Act (PROAIR HFA 90 MCG/ACT) 8.5 Gm Hfa.aer.ad, 2 PUFF INH TID 11/07/18 Pantoprazole Sodium (PANTOPRAZOLE SODIUM) 40 Mg Tablet.dr, 40 MG PO QDAY, TAB.SR 09/25/18 Lisinopril (LISINOPRIL) 10 Mg Tablet, 10 MG PO QDAY, TAB 09/11/18 Duloxetine Hcl (CYMBALTA) 30 Mg Capsule.dr, 30 MG PO HS, #5 CAP 09/11/18 Duloxetine Hcl (CYMBALTA) 60 Mg Capsule.dr, 60 MG PO QDAY, #5 CAP 03/11/18 Colloidal Oatmeal (Eczema) 140 Gm Lotion, TOP PRN 03/11/18 Amitriptyline Hcl (AMITRIPTYLINE HCL) 50 Mg Tablet, 100 MG PO QHS, #10 TAB 03/11/18 Discontinued Reported Medications Levofloxacin 750 Mg Tab (LEVOFLOXACIN 750 MG TAB) 750 Mg Tablet, 1 TAB PO QDAY for 5 Days 11/07/18 Doxycycline Hyclate (DOXYCYCLINE HYCLATE) 100 Mg Capsule, 1 CAP PO BID for 7 Days 11/07/18 Hydrocodone Bit/Acetaminophen (HYDROCODON-ACETAMINOPHEN 5-325) 1 Each Tablet, 1- 2 EACH PO Q4-6H PRN for PAIN, #30 TAB 10/16/18 Azithromycin (Z-PACK) 250 Mg Tablet, 0 PO QDAY, #6 DOSE-PACK 10/08/18 Prednisone 10 Mg Tab (PREDNISONE 10 MG TAB) 10 Mg Tablet, 10 MG PO BID, #6 TAB 10/08/18 Diet: Regular Activity: As Tolerated Venous Thromboembolism Antithrombotics Is Pt On Any Antithrombotics?: Yes Problem Qualifiers (1) Chest pain: Chest pain type: chest pain on breathing Qualified Codes: R07.1 - Chest pain on breathing (2) HTN (hypertension): Hypertension type: essential hypertension Qualified Codes: I10 - Essential (primary) hypertension JOHNNY GANDARA DO Nov 09, 2018 09:19
[2018-11-09] MEDS: PANTOPRAZOLE SOD 40 MG TABEC PO SCH (09:20)
[2018-11-09] MEDS: DULoxetine HCL 30 MG CAPCR PO SCH (09:21)
[2018-11-09] MEDS: ENOXAPARIN 40 MG/0.4ML SYR SC SCH (09:21)
[2018-11-09] MEDS: guaiFENesin 600 MG TABCR PO SCH (09:21)
[2018-11-09] MEDS: LISINOPRIL 10 MG TAB PO SCH (09:21)
[2018-11-09] MEDS ORDERED: CEFDINIR 300 MG CAP PO SCH (21:00)
== END 2018-11-09 10:45 | disposition home or self-care (01) | DRG 195 ==
LOC: ER 05:34 → MED 07:52
PROVIDERS: ADMIT Internal Medicine; ATTEND Internal Medicine
DX: J18.9 Pneumonia, unspecified organism (principal); I10 Essential (primary) hypertension; D47.3 Essential (hemorrhagic) thrombocythemia; G47.30 Sleep apnea, unspecified; E03.9 Hypothyroidism, unspecified; M79.7 Fibromyalgia; G89.29 Other chronic pain; M85.80 Other specified disorders of bone density and structure, unspecified site; Z90.49 Acquired absence of other specified parts of digestive tract; Z98.84 Bariatric surgery status; Z98.1 Arthrodesis status; Z88.0 Allergy status to penicillin
CPT/HCPCS: 36415; 71275; 80202; 82040; 82247; 82310; 82374; 82435; 82565; 82947; 83605; 83880; 84075; 84132; 84155; 84295; 84450; 84460; 84484; 84520; 85025; 85379; 85610; 85730; 87040; 93005; 94640; 96361; 96374; 96375; 99285; J0692; J1650; J1885; J2270; J2405; J2930; J3010; J3370; J3490; J7030; J7040; J7050; J7613; Q9967

== ENCOUNTER → 2018-11-16 | Outpatient (CLI) | payer OTHER ==
[2018-03-19 10:46] VITALS: BMI 29.4
[~2018-11-16] MED LIST changes: +ALBU8.5H INH; +CEF300 PO; +DOXY-179 PO; +DOXY-181 PO; +DUL100/5PT INH
--- NOTE | 2018-11-16 14:51 | RADIOLOGY IMAGING REPORT ---
FACILITY: [facility] PATIENT NAME: Rand Gautam : 1965 MR: [id number] V: [id number] EXAM DATE: ORDERING PHYSICIAN: GIULIANA VASQUEZ TECHNOLOGIST: Location: [facility] - [place] Patient: Rand Gautam : 1965 Visit/Account:[id number] Date of Sevice: 11/16/2018 US VENOUS DOPPLER - UPPER EXT LT HISTORY: History of recent carpal tunnel surgery COMPARISON: None. FINDINGS: Grayscale compression, duplex and color Doppler interrogation of the left upper extremity veins was p erformed. Jugular vein - Negative. Subclavian vein - Negative. Axillary vein - Negative. Basilic vein - Negative. Cephalic vein - Negative. Brachial veins - Negative. IMPRESSION: Negative left upper extremity venous ultrasound Report Dictated By: Ty Skelton at 11/16/2018 2:46 PM Report E-Signed By: Ty Skelton at 11/16/2018 2:47 PM WSN:[email or web address]
== END ==
LOC: US 01:11
PROVIDERS: ATTEND Family Medicine
DX: M79.89 Other specified soft tissue disorders (principal)

== ENCOUNTER → 2018-11-18 | Outpatient (CLI) | payer OTHER ==
[2018-03-19 10:46] VITALS: BMI 29.4
[~2018-11-18] MED LIST changes: +FERR-53 PO
[2018-11-18 15:17] LABS: PLATELET COUNT, AUTOMATED 613 K/uL (150-450)
== END ==
LOC: LAB 14:47
PROVIDERS: ATTEND Emergency Medicine
DX: J18.9 Pneumonia, unspecified organism (principal); E03.9 Hypothyroidism, unspecified; M85.80 Other specified disorders of bone density and structure, unspecified site; D47.3 Essential (hemorrhagic) thrombocythemia
CPT/HCPCS: 36415; 81270; 82306; 83540; 83550; 84443; 85025; 85379; 86140

== ENCOUNTER → 2018-12-02 | Outpatient (CLI) | payer OTHER ==
[2018-03-19 10:46] VITALS: BMI 29.4
--- NOTE | 2018-12-02 11:26 | RADIOLOGY IMAGING REPORT ---
FACILITY: [facility] PATIENT NAME: Rand Gautam : 1965 MR: [id number] V: [id number] EXAM DATE: ORDERING PHYSICIAN: MARTA BRADY TECHNOLOGIST: Location: [facility] Patient: Rand Gautam : 1965 Visit/Account:[id number] Date of Sevice: 12/02/2018 CHEST PA LAT HISTORY: Trace of breath. Chest pain. Cough. Evaluate for possible pneumonia. COMPARISON: Chest x-ray October 30, 2018, and several prior.. FINDINGS: Cardiomediastinal contours: The heart is enlarged. Lungs and pleura: Comparison the previous study shows again increased aeration but there is residual parenchymal density in the left lung base. The right lung base is clearer. There is no residual ple ural effusion. Bones/soft tissues: There are no findings of a fracture. There has been prior cervical fusion. Abdomen: There are surgical clips in right upper quadrant. IMPRESSION: 1. In this patient with a history of bilateral infiltrates the right chest is significantly clearer, but there is residual parenchymal density in the left lung base seen best on the PA projection a ret rocardiac region. This could represent residual scar, atelectasis or pneumonia. Correlation clinica l findings is recommended. 2. Postoperative changes in the cervical spine and abdomen. Report Dictated By: Richard Petty MD at 12/02/2018 11:20 AM Report E-Signed By: Richard Petty MD at 12/02/2018 11:22 AM WSN:[id number]
== END ==
LOC: RAD 10:41
PROVIDERS: ATTEND Emergency Medicine
DX: J18.9 Pneumonia, unspecified organism (principal)
CPT/HCPCS: 71046

== ENCOUNTER 2018-12-04 14:29 | Inpatient (IN) | payer OTHER ==
[~2018-12-04] VITALS: Ht 167.6 cm; Wt 92.6 kg
[~2018-12-04 14:29] MED LIST changes: -AMLO-125 PO; -SULF-198 PO; -TRAM-420 PO; -TRAZ50TA34 PO
[2018-12-04 14:54] VITALS: BP 126/73
[2018-12-04] MEDS ORDERED: ACETAMINOPHEN 325 MG TAB PO PRN (15:35)
[2018-12-04] MEDS ORDERED: ALBUTEROL 2.5 MG/3 ML NEB NEB PRN (15:35)
[2018-12-04] MEDS ORDERED: FLUSH 10 ML SYR IVP PRN (15:35)
[2018-12-04] MEDS ORDERED: RIZATRIPTAN BENZOAT (ODT) 10MG PO PRN (16:35)
[2018-12-04] MEDS ORDERED: VANCOMYCIN(*) 1 GM VIAL 2 GM, VANCOMYCIN (*) 0.5 GM VIAL 0.5 GM in NS(*) 0.9% 500 ML BA... IVPB ONE (17:00)
[2018-12-04] MEDS ORDERED: NS(*) 0.9% 250 ML BAG 250 ML ONE (17:23)
--- NOTE | 2018-12-04 17:25 | History & Physical ---
History of Present Illness Chief Complaint SOB, Cough History of Present Illness She presented for pneumonia follow up with Dr. Jensen. She was noted to have increased SOB, cough, fever of 101, and chest pain. She was hospitalized in October for pneumonia and feels she has never improved from that admission. She has had multiple courses of antibiotics and steroids. Her room air saturation was noted to be 77% in the clinic. Ct of the Chest was performed prior to admission and noted bilateral lung infiltrates appear decreased and is consistent with resolving pneumonia. She was recommended for admission secondary to hypoxia and persistent pneumonia. History Problems: (1) Hypothyroidism Status: Chronic (2) HTN (hypertension) Status: Chronic (3) Chronic back pain Status: Chronic (4) Fibromyalgia Status: Chronic (5) Narcotic abuse Status: Chronic Home Meds Active Scripts Methylprednisolone (METHYLPREDNISOLONE) 4 Mg Tab.ds.pk, 4 MG PO DIRECTED, #1 TAB Prov:MARTA JENSEN MD 12/02/18 Levothyroxine Sodium (LEVOTHYROXINE SODIUM) 25 Mcg Tablet, 1 TAB PO QDAY, #90 TAB 1 Refill Prov:BRAD SALINAS APRN-C 02/24/18 Diclofenac Sodium (Diclofenac Sodium) 1 % Gel..gram., 2 GM TOP QID PRN for PAIN, #100 GM 2 Refills Prov:BRAD SALINAS APRNP-C 02/18/18 Rizatriptan Benzoate (MAXALT) 5 Mg Tablet, 1 TAB PO DAILY PRN for MIGRAINE, #15 TAB 5 Refills If no effect after 2 hours you may take a second tablet Prov:BRAD SALINAS APRN SENIOR STAFF ACCOUNTANT-C 08/25/17 Reported Medications Ferrous Sulfate (FERROUS SULFATE) 325 Mg Tablet, 325 MG PO DAILY 11/19/18 Albuterol Sulfate 90 Mcg/Act (PROAIR HFA 90 MCG/ACT) 8.5 Gm Hfa.aer.ad, 2 PUFF INH TID 11/07/18 Pantoprazole Sodium (PANTOPRAZOLE SODIUM) 40 Mg Tablet.dr, 40 MG PO QDAY, TAB.SR 09/25/18 Lisinopril (LISINOPRIL) 10 Mg Tablet, 10 MG PO QDAY, TAB 09/11/18 Duloxetine Hcl (CYMBALTA) 30 Mg Capsule.dr, 30 MG PO HS 09/11/18 Duloxetine Hcl (CYMBALTA) 60 Mg Capsule.dr, 60 MG PO QDAY 03/11/18 Colloidal Oatmeal (Eczema) 140 Gm Lotion, TOP PRN 03/11/18 Amitriptyline Hcl (AMITRIPTYLINE HCL) 50 Mg Tablet, 100 MG PO QHS, #10 TAB 03/11/18 Discontinued Reported Medications Mometasone/Formoterol (DULERA 100 MCG/5 MCG INHALER) 13 Gm Inh, 2 PUFF INH QDAY, INH 11/07/18 Discontinued Scripts Levofloxacin 750 Mg Tab (LEVAQUIN 750 MG TAB) 750 Mg Tablet, 750 MG PO DAILY, #10 TAB Prov:MARTA JENSEN MD 12/04/18 Doxycycline Hyclate (DOXYCYCLINE HYCLATE) 100 Mg Tablet, 100 MG PO BID, #10 TAB Prov:JOHNNY GANDARA DO 11/09/18 Cefdinir 300 Mg Cap (OMNICEF 300 MG CAP (OR EQUIV)) 300 Mg Cap, 300 MG PO BID, #10 CAP Prov:JOHNNY GANDARA DO 11/09/18 Allergies: Coded Allergies: Penicillins (Verified Allergy, Intermediate, 09/25/18) Patient History: FH: COPD (chronic obstructive pulmonary disease) FATHER, , Age:63 MOTHER, , Age:67 FH: diabetes mellitus FATHER, , Age:63 MOTHER, , Age:67 BROTHER OR SISTER BROTHER OR SISTER BROTHER OR SISTER BROTHER OR SISTER FH: diabetes mellitus FATHER, , Age:63 MOTHER, , Age:67 BROTHER OR SISTER BROTHER OR SISTER BROTHER OR SISTER BROTHER OR SISTER FH: lung cancer Hx Smoking: Yes Smoking Status: Former Smoker Exposure to Second Hand Smoke?: Yes (both parents smoked, and children as well) When Quit Tobacco?: 1 yr ago Caffeine Intake: Soda Caffeine/Cups Per Day: OCCASIONAL Hx Alcohol Use: No Hx Substance Use Disorder: Yes Social Drug Use: Former Social Drugs: Marijuana, Prescription Drugs When Quit Social Drugs?: 5 yr ago Review of Systems All Systems Reviewed/Normal: Yes, Except as Noted Cardiovascular: Chest Pain Respiratory: Shortness of Breath, Cough Musculoskeletal: Pain (right foot from fall) Exam Vital Signs Vital Signs Date Time Temp Pulse Resp B/P (MAP) Pulse Ox O2 Delivery O2 Flow Rate FiO2 12/04/18 16:21 75 12/04/18 14:54 98.4 24 126/73 (90) 99 Nasal Cannula 2.0 General Appearance: Alert, Awake, No Acute Distress, Afebrile Neuro: No Gross deficits Cardiovascular: Regular Rate and Rhythm Respiratory: No Respiratory Distress, Other (lung sounds diminished throughout, tight) GI: Abd Soft and Non-Tender Musculoskeletal: Other (right foot has bruising and swelling from fall a few days ago) Extremities: Warm, Perfused, Edema (non pitting bilaterally) Integumentary: Other (bruising to left hip from fall) Psych: Alert & Oriented X3, Appropriate Mood & Affect Assessment and Plan Problems: (1) Pneumonia Status: Acute Assessment & Plan: She appears to have bilateral pneumonia. She will need to be treated like hospital acquired pneumonia. She will be placed on Vancomycin and Primaxin. Cultures to be obtained and sputum culture ordered. She will get Mucinex, supplemental oxygen, nebulizer treatments. (2) Hypoxia Status: Acute Assessment & Plan: She has recently required more oxygen. She currently is using 2L. She will get echo to rule out cardiomyopathy. Will also order D-Dimer to rule out PE. (3) Chest pain Status: Acute Assessment & Plan: She has been having pleuritic chest pain for quite some time. She will get troponin checked. She has been on oral steroids. Will place on IV steroids for pleuritic chest pain. (4) HTN (hypertension) Status: Chronic Assessment & Plan: She is on chronic treatment with Lisinopril. This has been restarted with hold parameters. (5) Hypothyroidism Status: Chronic Assessment & Plan: She is on chronic treatment with Levothyroxine. Continue. (6) Fibromyalgia Status: Chronic Assessment & Plan: She is on chronic treatment with Cymbalta and Amitriptyline. Continue. (7) Swelling of right foot Status: Acute Assessment & Plan: She had a fall a few days ago on ice. She has pain and bruising to right foot. She will get foot x-ray. Venous Thromboembolism Antithrombotics Is Pt On Any Antithrombotics?: Yes BRITNEY MONTGOMERY Dec 04, 2018 17:25
[2018-12-04] MEDS: ALBUTEROL 8 GM INHALER INH SCH (17:46)
--- NOTE | 2018-12-04 17:47 | RADIOLOGY IMAGING REPORT ---
FACILITY: [facility] PATIENT NAME: Rand Gautam : 1965 MR: [id number] V: [id number] EXAM DATE: ORDERING PHYSICIAN: BRITNEY MONTGOMERY TECHNOLOGIST: [place] [facility] [place]: Radn Gautam : 1965 Visit/Account:[id number] Date of Sevice: 12/04/2018 FOOT 3 VIEWS RIGHT Indication: right foot bruising and swelling, fell on ice Comparison: None. Findings: The phalanges, metatarsal, and tarsal bones are intact. Soft tissues are normal. Joint spac es smooth. IMPRESSION: No evidence of fracture or dislocation. Report Dictated By: Oswald Ross at 12/04/2018 5:41 PM Report E-Signed By: Oswald Ross at 12/04/2018 5:43 PM WSN:[id number]
[2018-12-04 19:57] VITALS: BP 109/64
[2018-12-04] MEDS: IMIPENEM/CILASTA(*) 500MG VIAL 500 MG in NS(*) 0.9% 100 ML BAG 100 ML IVPB SCH (20:23)
[2018-12-04] MEDS ORDERED: TRAM-420 PO (20:47)
[2018-12-04] MEDS ORDERED: LOR5/325 PO (20:47)
[2018-12-04] MEDS ORDERED: GABA-549 PO (20:47)
[2018-12-04] MEDS ORDERED: AMIT100T53 PO (20:47)
[2018-12-04] MEDS ORDERED: TRAZ50TA34 PO (20:47)
[2018-12-04] MEDS: DULoxetine HCL 30 MG CAPCR PO SCH (21:03)
[2018-12-04] MEDS: methylPREDNIS SUCC 125 MG/2ML IVP SCH (21:03)
[2018-12-04] MEDS: guaiFENesin 600 MG TABCR PO SCH (21:03)
[2018-12-04] MEDS: AMITRIPTYLINE HCL 25 MG TAB PO SCH (21:03)
[2018-12-04 23:34] VITALS: BP 119/89
[2018-12-04] MEDS: NS(*) 0.9% 1000 ML BAG 1,000 ML IV PRN (23:57)
[2018-12-05] MEDS: IMIPENEM/CILASTA(*) 500MG VIAL 500 MG in NS(*) 0.9% 100 ML BAG 100 ML IVPB SCH ×4 (01:47→20:35)
[2018-12-05] MEDS: VANCOMYCIN(*) 1 GM VIAL 1 GM, VANCOMYCIN (*) 0.5 GM VIAL 0.5 GM in NS(*) 0.9% 250 ML BA... IVPB SCH ×2 (04:38→17:46)
[2018-12-05 05:00] VITALS: BP 127/87
[2018-12-05] MEDS: ALBUTEROL 8 GM INHALER INH SCH ×3 (05:52→17:26)
[2018-12-05] MEDS: LEVOTHYROXINE SOD 0.025 MG TAB PO SCH (06:01)
[2018-12-05 06:06] LABS: PLATELET COUNT, AUTOMATED 428 K/uL (150-450)
[2018-12-05 07:36] VITALS: BP 135/83
--- NOTE | 2018-12-05 08:03 | Hospitalist Progress Note ---
Subjective Progress Notes Subjective Feels a little better this morning with less SOB but still significant wheezing and mucous production. No fever or chills. Physical Exam Vital Signs Date Time Temp Pulse Resp B/P (MAP) Pulse Ox O2 Delivery O2 Flow Rate FiO2 12/05/18 07:36 98.2 79 16 135/83 (100) 97 Nasal Cannula 2.0 Intake and Output 12/05/18 06:59 Intake Total 1795 ml Balance 1795 ml Intake Oral 1080 ml IV Total 715 ml # Voids 4 General Appearance: Alert, Awake, No Acute Distress, Afebrile Cardiovascular: Regular Rate and Rhythm Respiratory: Other (Ronchi throughout both lungs. Mild exp wheezing. Mucous is dark brown/green. No blood.) Psych: Alert & Oriented X3, Appropriate Mood & Affect Result Diagram: 12/05/1851112/05/18511 Assessment and Plan Problems: (1) Pneumonia Status: Acute Assessment & Plan: She has bilateral pneumonia. She will need to be treated like hospital acquired pneumonia. She will be placed on Vancomycin and Primaxin. Cultures and sputum culture not reported yet. Vancomycin level this afternoon. She will get Mucinex, supplemental oxygen, nebulizer treatments. Continue steroids. (2) Hypoxia Status: Acute Assessment & Plan: She has recently required more oxygen. She currently is using 2L. She will get echo to rule out cardiomyopathy. Will also order D-Dimer to rule out PE. (3) Chest pain Status: Acute Assessment & Plan: She has been having pleuritic chest pain for quite some time. troponin negative. She has been on oral steroids. (4) HTN (hypertension) Status: Chronic Assessment & Plan: She is on chronic treatment with Lisinopril. This has been restarted with hold parameters. (5) Hypothyroidism Status: Chronic Assessment & Plan: She is on chronic treatment with Levothyroxine. Continue. (6) Fibromyalgia Status: Chronic Assessment & Plan: She is on chronic treatment with Cymbalta and Amitriptyline. Continue. (7) Swelling of right foot Status: Acute Assessment & Plan: She had a fall a few days ago on ice. She has pain and br uising to right foot. She will get foot x-ray. Time Spent on Plan of Care: < 30 min Exam Sepsis Risk: No Definite Risk FREYA LINO MD FACP Dec 05, 2018 08:03
[2018-12-05] MEDS: LISINOPRIL 10 MG TAB PO SCH (08:35)
[2018-12-05] MEDS: methylPREDNIS SUCC 125 MG/2ML IVP SCH ×2 (08:35→20:35)
[2018-12-05] MEDS: ENOXAPARIN 40 MG/0.4ML SYR SC SCH (08:35)
[2018-12-05] MEDS: guaiFENesin 600 MG TABCR PO SCH ×2 (08:36→20:35)
[2018-12-05] MEDS: FERROUS SULFATE 325 MG TAB PO SCH (08:36)
[2018-12-05] MEDS: PANTOPRAZOLE SOD 40 MG TABEC PO SCH (08:36)
[2018-12-05] MEDS: DULoxetine HCL 30 MG CAPCR PO SCH ×2 (08:36→20:35)
[2018-12-05 10:50] VITALS: BP 143/92
[2018-12-05 12:29] VITALS: Ht 167.6 cm; Wt 92.6 kg
[2018-12-05 14:48] VITALS: BP 145/81
[2018-12-05 15:40] VITALS: BP 139/84
[2018-12-05] MEDS: NS(*) 0.9% 1000 ML BAG 1,000 ML IV PRN (16:22)
[2018-12-05 19:11] VITALS: BP 143/80
[2018-12-05] MEDS: AMITRIPTYLINE HCL 25 MG TAB PO SCH (20:35)
[2018-12-06] VITALS (7 sets, daily range): BP systolic 143–164; BP diastolic 82–101
[2018-12-06] MEDS: IMIPENEM/CILASTA(*) 500MG VIAL 500 MG in NS(*) 0.9% 100 ML BAG 100 ML IVPB SCH ×4 (03:27→20:13)
[2018-12-06] MEDS: LEVOTHYROXINE SOD 0.025 MG TAB PO SCH (05:44)
[2018-12-06] MEDS: VANCOMYCIN(*) 1 GM VIAL 1 GM, VANCOMYCIN (*) 0.5 GM VIAL 0.5 GM in NS(*) 0.9% 250 ML BA... IVPB SCH (05:44)
[2018-12-06] MEDS: ALBUTEROL 8 GM INHALER INH SCH ×3 (05:56→17:23)
[2018-12-06 06:13] LABS: PLATELET COUNT, AUTOMATED 490 K/uL (150-450)
[2018-12-06] MEDS ORDERED: NS(*) 0.9% 1000 ML BAG 1,000 ML IV SCH (07:20)
--- NOTE | 2018-12-06 07:31 | Hospitalist Progress Note ---
Subjective Progress Notes Subjective Feels much better this morning with less wheezing and cough and less sputum production. No chest pain, SOB. No fever or chills. Maintaining O2 sats on room air. Physical Exam Vital Signs Date Time Temp Pulse Resp B/P (MAP) Pulse Ox O2 Delivery O2 Flow Rate FiO2 12/06/18 07:03 98.1 82 18 143/83 (103) 90 Room Air 12/05/18 20:35 2.5 Intake and Output 12/06/18 07:00 Intake Total 2031 ml Balance 2031 ml Intake Oral 440 ml IV Total 1591 ml # Voids 3 # Bowel Movements 1 General Appearance: Alert, Awake, No Acute Distress, Afebrile Cardiovascular: Regular Rate and Rhythm Respiratory: Other (Much better expansion. No wheezing but still scattered ronchi. ) Integumentary: Other (Skin color much better. ) Psych: Alert & Oriented X3, Appropriate Mood & Affect Result Diagram: 12/06/1851812/06/18518 Sputum culture growing gm- josie in heavy quantity which has not yet been identified. Blood cultures are negative. Assessment and Plan Problems: (1) Pneumonia Status: Acute Assessment & Plan: She has bilateral pneumonia. She has been treated like hospital acquired pneumonia. She is on Vancomycin and Primaxin. She looks dramatically better this morning. Sputum culture growing heavy quantity of gm- josie with negative blood cultures thus far. She is getting Mucinex, supplemental oxygen, nebulizer treatments. Will await the sputum culture for final identification of gm- josie and antibiotic sensitivity. D/C vancomycin and decrease steroids. Start to ambulate. Possibly home tomorrow or Friday. Continue primaxin for now. (2) Hypoxia Status: Resolved Assessment & Plan: She is on room air and maintaining sats in the 90--92% range. (3) Chest pain Status: Resolved (4) HTN (hypertension) Status: Chronic Assessment & Plan: She is on chronic treatment with Lisinopril. This has been restarted with hold parameters. (5) Hypothyroidism Status: Chronic Assessment & Plan: She is on chronic treatment with Levothyroxine. Continue. (6) Fibromyalgia Status: Chronic Assessment & Plan: She is on chronic treatment with Cymbalta and Amitriptyline. Continue. (7) Swelling of right foot Status: Acute Assessment & Plan: She had a fall a few days ago on ice. She has pain and bruising to right foot. X-ray negative. Time Spent on Plan of Care: > 30 min Exam Sepsis Risk: No Definite Risk FREYA LINO MD FACP Dec 06, 2018 07:31
[2018-12-06] MEDS: ENOXAPARIN 40 MG/0.4ML SYR SC SCH (09:31)
[2018-12-06] MEDS: PANTOPRAZOLE SOD 40 MG TABEC PO SCH (09:31)
[2018-12-06] MEDS: methylPREDNIS SUCC 125 MG/2ML IVP SCH ×2 (09:31→20:16)
[2018-12-06] MEDS: guaiFENesin 600 MG TABCR PO SCH ×2 (09:32→20:15)
[2018-12-06] MEDS: DULoxetine HCL 30 MG CAPCR PO SCH ×2 (09:32→20:15)
[2018-12-06] MEDS: LISINOPRIL 10 MG TAB PO SCH (09:32)
[2018-12-06] MEDS: FERROUS SULFATE 325 MG TAB PO SCH (09:32)
--- NOTE | 2018-12-06 15:33 | Antimicrobial Stewardship ---
Antimicrobial Time Out Antimicrobial Stewardship MD Service: Hospitalist Indications: CAP Antimicrobial Used VANCOMYCIN IV AND PRIMAXIN IV Start Date: Dec 04, 2018 Culture Results: Yes (KLEB PNEUMO) Eligible for PO Conversion Eligable for PO Conversion: Yes Reviewed with Provider Reviewed w/ Provider on Rounds: No Comments Comments Patient presented with possible pneumonia and was initially started on HCAP regimen. Sputum was culture and resulted with herman sensitive kleb pneumo. Vanco was stopped and Primaxin continued. MICHELLE MICHELE Dec 06, 2018 15:33
[2018-12-06] MEDS: AMITRIPTYLINE HCL 25 MG TAB PO SCH (20:15)
[2018-12-07 02:21] VITALS: BP 154/98
[2018-12-07] MEDS: IMIPENEM/CILASTA(*) 500MG VIAL 500 MG in NS(*) 0.9% 100 ML BAG 100 ML IVPB SCH ×2 (02:21→08:45)
[2018-12-07] MEDS: LEVOTHYROXINE SOD 0.025 MG TAB PO SCH (05:23)
[2018-12-07] MEDS: ALBUTEROL 8 GM INHALER INH SCH ×2 (05:31→11:15)
[2018-12-07 06:03] LABS: PLATELET COUNT, AUTOMATED 455 K/uL (150-450)
[2018-12-07] MEDS: methylPREDNIS SUCC 125 MG/2ML IVP SCH (08:45)
[2018-12-07] MEDS: FERROUS SULFATE 325 MG TAB PO SCH (08:46)
[2018-12-07] MEDS: PANTOPRAZOLE SOD 40 MG TABEC PO SCH (08:46)
[2018-12-07] MEDS: guaiFENesin 600 MG TABCR PO SCH (08:46)
[2018-12-07] MEDS: LISINOPRIL 10 MG TAB PO SCH (08:46)
[2018-12-07] MEDS: ENOXAPARIN 40 MG/0.4ML SYR SC SCH (08:46)
[2018-12-07] MEDS: DULoxetine HCL 30 MG CAPCR PO SCH (08:46)
[2018-12-07 08:49] VITALS: BP 169/101
[2018-12-07] MEDS ORDERED: AMLO-125 PO (09:39)
[2018-12-07] MEDS ORDERED: SULF-198 PO (09:39)
--- NOTE | 2018-12-07 09:45 | Hospitalist Depart ---
Discharge Summary Reason for Hosp/Final Diag: (1) Pneumonia Status: Acute Hospital Course & Plan: She has bilateral pneumonia. She has been treated like hospital acquired pneumonia. She is on Vancomycin and Primaxin. She looks dramatically better this morning. Sputum culture growing heavy quantity of gm- josie with negative blood cultures thus far. She is getting Mucinex, supplemental oxygen, nebulizer treatments. Her sputum culture was positive for Klebsiella Pneumonia. She will be placed on Bactrim, and treat for two weeks secondary to resistance in treatment recently. D/C vancomycin and Primaxin and will be tapered on steroids. (2) Hypoxia Status: Resolved Hospital Course & Plan: She is on room air and maintaining sats in the 90--92% range, but does require oxygen at night time. (3) Chest pain Status: Resolved Hospital Course & Plan: Troponin negative. Likely Pleurisy. (4) HTN (hypertension) Status: Chronic Hospital Course & Plan: She is on chronic treatment with Lisinopril. This was restarted with hold parameters. Since she is being placed on Bactrim, there is an interaction with elevated potassium. He blood pressures have not been well controlled and she does have higher potassium levels. At this time, will switch to amlodipine. She will need follow up within one week with PCP. (5) Hypothyroidism Status: Chronic Hospital Course & Plan: She is on chronic treatment with Levothyroxine. Continue. (6) Fibromyalgia Status: Chronic Hospital Course & Plan: She is on chronic treatment with Cymbalta and Amitriptyline. Continue. (7) Swelling of right foot Status: Acute Hospital Course & Plan: She had a fall a few days ago on ice. She has pain and bruising to right foot. X-ray negative. Departure Latest Vital Signs Vital Signs 12/07/18 08:49 Temp 98.0 Pulse 69 Resp 14 B/P (MAP) 169/101 (123) Pulse Ox 99 O2 Delivery Nasal Cannula O2 Flow Rate 2.0 Weight (Pounds): 204 Weight (Ounces): 3.0 Result Diagram: 12/07/18 0537 12/06/18 0519 Condition: Improved Discharge: Home, Self Care Discharge Instructions Home Meds Active Scripts Prednisone 10 Mg Tab (PREDNISONE 10 MG TAB) 10 Mg Tablet, 10 MG PO QDAY, #30 TAB Take 4 tabs for 2 days, then 3 tabs for 3 days, then 2 tabs for 3 days, then 1 tab for 3 days, then stop. Prov:BRITNEY MONTGOMERY [facility] 12/07/18 Amlodipine Besylate (AMLODIPINE BESYLATE) 5 Mg Tablet, 1 TAB PO QDAY, #30 TAB Prov:BRITNEY MONTGOMERY [facility] 12/07/18 Sulfamethoxazole/Trimet 800-160 Mg Tab (BACTRIM DS TABLET) 1 Each Tablet, 1 TAB PO Q12H for 14 Days, #28 TAB Prov:BRITNEY MONTGOMERY [facility] 12/07/18 Levothyroxine Sodium (LEVOTHYROXINE SODIUM) 25 Mcg Tablet, 1 TAB PO QDAY, #90 TAB 1 Refill Prov:BRAD SALINAS APRN-C 02/24/18 Diclofenac Sodium (Diclofenac Sodium) 1 % Gel..gram., 2 GM TOP QID PRN for PAIN, #100 GM 2 Refills Prov:BRAD SALINAS APRN-C 02/18/18 Rizatriptan Benzoate (MAXALT) 5 Mg Tablet, 1 TAB PO DAILY PRN for MIGRAINE, #15 TAB 5 Refills If no effect after 2 hours you may take a second tablet Prov:BRAD SALINAS APRN-C 08/25/17 Reported Medications Trazodone Hcl (TRAZODONE HCL) 50 Mg Tablet, 50 MG PO QHS PRN for INSOMNIA 12/04/18 Tramadol Hcl (TRAMADOL HCL) 50 Mg Tablet, 50 MG PO Q6H PRN for PAIN, TAB 12/04/18 Hydrocodone Bit/Acetaminophen (HYDROCODON-ACETAMINOPHEN 5-325) 1 Each Tablet, 1 EACH PO Q6-8H PRN for PAIN, TAB 12/04/18 Gabapentin (GABAPENTIN) 300 Mg Capsule, 300 MG PO TID, CAPSULE 12/04/18 Amitriptyline Hcl (AMITRIPTYLINE HCL) 100 Mg Tablet, 100 MG PO QHS, TAB 12/04/18 Ferrous Sulfate (FERROUS SULFATE) 325 Mg Tablet, 325 MG PO DAILY 11/19/18 Albuterol Sulfate 90 Mcg/Act (PROAIR HFA 90 MCG/ACT) 8.5 Gm Hfa.aer.ad, 2 PUFF INH TID 11/07/18 Pantoprazole Sodium (PANTOPRAZOLE SODIUM) 40 Mg Tablet.dr, 40 MG PO QDAY, TAB.SR 09/25/18 Duloxetine Hcl (CYMBALTA) 30 Mg Capsule.dr, 30 MG PO HS 09/11/18 Duloxetine Hcl (CYMBALTA) 60 Mg Capsule.dr, 60 MG PO QDAY 03/11/18 Discontinued Reported Medications Lisinopril (LISINOPRIL) 10 Mg Tablet, 10 MG PO QDAY, TAB 09/11/18 Mometasone/Formoterol (DULERA 100 MCG/5 MCG INHALER) 13 Gm Inh, 2 PUFF INH QDAY, INH 11/07/18 Colloidal Oatmeal (Eczema) 140 Gm Lotion, TOP PRN 03/11/18 Amitriptyline Hcl (AMITRIPTYLINE HCL) 50 Mg Tablet, 100 MG PO QHS, #10 TAB 03/11/18 Discontinued Scripts Levofloxacin 750 Mg Tab (LEVAQUIN 750 MG TAB) 750 Mg Tablet, 750 MG PO DAILY, #10 TAB Prov:MARTA JENSEN MD 12/04/18 Methylprednisolone (METHYLPREDNISOLONE) 4 Mg Tab.ds.pk, 4 MG PO DIRECTED, #1 TAB Prov:MARTA JENSEN MD 12/02/18 Doxycycline Hyclate (DOXYCYCLINE HYCLATE) 100 Mg Tablet, 100 MG PO BID, #10 TAB Prov:JOHNNY GANDARA DO 11/09/18 Cefdinir 300 Mg Cap (OMNICEF 300 MG CAP (OR EQUIV)) 300 Mg Cap, 300 MG PO BID, #10 CAP Prov:JOHNNY GANDARA DO 11/09/18 Diet: Regular Activity: As Tolerated Special Instructions: Stop Lisinopril. Start Amlodipine one tablet daily. Follow up in one week with Dr. Jensen. Wear oxygen at night. Take Prednisone and Bactrim as prescribed until gone. Copies to: MARTA JENSEN MD ; Venous Thromboembolism Antithrombotics Is Pt On Any Antithrombotics?: Yes BRITNEY MONTGOMERY Dec 07, 2018 09:45
[2018-12-07] MEDS ORDERED: PRED-1 PO (09:50)
[2018-12-16] MEDS ORDERED: AMLO-127 PO (13:21)
[2018-12-16] MEDS ORDERED: HYDR-2966 PO (13:21)
== END 2018-12-07 14:40 | disposition home or self-care (01) | DRG 177 ==
LOC: MED 14:29
PROVIDERS: ADMIT Internal Medicine; ATTEND Internal Medicine
DX: J15.0 Pneumonia due to Klebsiella pneumoniae (principal); J96.00 Acute respiratory failure, unspecified whether with hypoxia or hypercapnia; R09.02 Hypoxemia; I10 Essential (primary) hypertension; E03.9 Hypothyroidism, unspecified; M79.7 Fibromyalgia; S90.31XA Contusion of right foot, initial encounter; M54.9 Dorsalgia, unspecified; Z87.898 Personal history of other specified conditions; W00.0XXA Fall on same level due to ice and snow, initial encounter; Z88.0 Allergy status to penicillin; Z87.891 Personal history of nicotine dependence
CPT/HCPCS: 36415; 80202; 82040; 82103; 82247; 82310; 82374; 82435; 82565; 82947; 83605; 84075; 84132; 84155; 84295; 84450; 84460; 84484; 84520; 85025; 85379; 87040; 87070; 87077; 87186; 87502; 93306; 94640; 94667; 94668; J0743; J1650; J2930; J3370; J7030; J7040; J7050

== ENCOUNTER → 2018-12-04 | Outpatient (CLI) | payer OTHER ==
[2018-03-19 10:46] VITALS: BMI 29.4
[~2018-12-04] MED LIST changes: +AMLO-125 PO; +LEVO750T44 PO; -MULT-1101 PO; +MULT-123 PO; +SULF-198 PO; +TRAM-420 PO; +TRAZ50TA34 PO
[2018-12-04 12:17] LABS: PLATELET COUNT, AUTOMATED 467 K/uL (150-450)
--- NOTE | 2018-12-04 14:02 | RADIOLOGY IMAGING REPORT ---
[place] [facility] [place]: Rand Gautam : 1965 MR: [id number] V: [id number] EXAM DATE: ORDERING PHYSICIAN: MARTA BRADY TECHNOLOGIST: [place] [facility] [place] Rand Gautam : 1965 Visit/Account:[id number] Date of Sevice: 12/04/[address] scan with contrast. HISTORY: Follow-up pneumonia. COMPARISON: CT scan 11/07/2018. 3 mm thick and [address] images were obtained of the chest using 75 mL intravenous Isovue-3 70. Sagittal and coronal computer reconstructions were performed. One of the following dose optimiz ation techniques was utilized in the performance of this exam: Automated exposure control; adjustment of the mA and/or kV according to the patient's size; or use of an iterative reconstruction techniqu e. Specific details can be referenced in the facility's radiology CT exam operational policy. FINDINGS: The heart size is upper limits of normal. Several lymph nodes measuring up to 1.5 cm in diameter are present in the posterior mediastinum. The coronary arteries are partially calcified. No pleural fl uid. Patchy airspace and interstitial infiltrates are scattered in both lungs, decreased compared to previous. The trachea and central bronchi are otherwise unremarkable. Consolidation in the left lo wer lung has decreased compared to previous. Slight left periareolar thickening is unchanged. Surgical clips are present in the gallbladder fossa. Metal nataliia are present along the upper porti on of the stomach. A small direct hiatal hernia is present. IMPRESSION: Bilateral lung infiltrates, decreased, consistent with resolving pneumonia. Mild mediastinal adenopathy, probably reactive. Results were discussed with MARTA BRADY at 12/04/2018 1:56 PM. Report Dictated By: Wade Ovalle MD at 12/04/2018 1:42 PM Report E-Signed By: Wade Ovalle MD at 12/04/2018 1:57 PM WSN:[email or web address]
== END ==
LOC: LAB 11:37
PROVIDERS: ATTEND Emergency Medicine
DX: J18.9 Pneumonia, unspecified organism (principal); D47.3 Essential (hemorrhagic) thrombocythemia; E61.1 Iron deficiency
CPT/HCPCS: 36415; 71260; 82310; 82374; 82435; 82565; 82728; 82947; 83540; 83550; 84132; 84295; 84520; 85025; 86140; Q9967

== ENCOUNTER → 2018-12-14 | Outpatient (CLI) | payer OTHER ==
[2018-12-05 12:29] VITALS: BMI 32.9
[~2018-12-14] MED LIST changes: +AMLO-125 PO; +AMLO-127 PO; +HYDR-2966 PO; +SULF-198 PO; +TRAM-420 PO; +TRAZ50TA34 PO
== END ==
LOC: RESP 07:03
PROVIDERS: ATTEND Emergency Medicine
DX: J98.4 Other disorders of lung (principal)
CPT/HCPCS: 94060; 94726; 94729

== ENCOUNTER → 2018-12-23 | Outpatient (CLI) | payer OTHER ==
[2018-12-05 12:29] VITALS: BMI 32.9
--- NOTE | 2018-12-23 14:19 | RADIOLOGY IMAGING REPORT ---
FACILITY: [facility] PATIENT NAME: Rand Gautam : 1965 MR: [id number] V: [id number] EXAM DATE: ORDERING PHYSICIAN: MARTA BRADY TECHNOLOGIST: Location: [facility] Patient: Rand Gautam : 1965 Visit/Account:[id number] Date of Sevice: 12/23/2018 Chest with lateral, two views. HISTORY: Pneumonia. COMPARISON: 12/02/2018. Mild streaky densities are present in the right midlung and left medial lung base. Patchy infiltrate s in the lung bases have decreased. The heart and mediastinum are unremarkable. Pulmonary vessels a re unremarkable. The pleural surfaces are unremarkable. No pneumothorax. No acute bony abnormalitie s. Surgical clips are present in the right upper abdomen. Metal hardware is present in the cervical spine. IMPRESSION: Decreased bibasilar lung infiltrates. Mild bilateral subsegmental atelectasis or pleural parenchymal scars. Report Dictated By: Wade Ovalle MD at 12/23/2018 1:29 PM Report E-Signed By: Wade Ovalle MD at 12/23/2018 1:31 PM WSN:[id number]
== END ==
LOC: RAD 13:22
PROVIDERS: ATTEND Emergency Medicine
DX: J18.9 Pneumonia, unspecified organism (principal)

== ENCOUNTER → 2018-12-23 | Outpatient (CLI) | payer OTHER ==
[2018-12-05 12:29] VITALS: BMI 32.9
[~2018-12-23] MED LIST changes: +NS 0.9% 25 ML BAG 50 ML ONE
--- NOTE | 2018-12-23 13:36 | RADIOLOGY IMAGING REPORT ---
FACILITY: [facility] PATIENT NAME: Rand Gautam : 1965 MR: [id number] V: [id number] EXAM DATE: ORDERING PHYSICIAN: MARTA BRADY TECHNOLOGIST: Location: [facility] Patient: Rand Gautam : 1965 Visit/Account:[id number] Date of Sevice: 12/23/2018 Chest with lateral, two views. HISTORY: Pneumonia. COMPARISON: 12/02/2018. Mild streaky densities are present in the right midlung and left medial lung base. Patchy infiltrate s in the lung bases have decreased. The heart and mediastinum are unremarkable. Pulmonary vessels a re unremarkable. The pleural surfaces are unremarkable. No pneumothorax. No acute bony abnormalitie s. Surgical clips are present in the right upper abdomen. Metal hardware is present in the cervical spine. IMPRESSION: Decreased bibasilar lung infiltrates. Mild bilateral subsegmental atelectasis or pleural parenchymal scars. Report Dictated By: Wade Ovalle MD at 12/23/2018 1:29 PM Report E-Signed By: Wade Ovalle MD at 12/23/2018 1:31 PM WSN:[email or web address]
--- NOTE | 2018-12-23 15:40 | RADIOLOGY IMAGING REPORT ---
FACILITY: [facility] PATIENT NAME: Rand Gautam : 1965 MR: [id number] V: [id number] EXAM DATE: ORDERING PHYSICIAN: GIULIANA VASQUEZ TECHNOLOGIST: Location: [facility] [place] Patient: Rand Gautam : 1965 Visit/Account:[id number] Date of Sevice: 12/23/2018 CT angiogram chest with contrast Indication: Pneumonia. Comparison: CT chest 12/04/2018. Technique: Axial CT images are obtained through the chest after administration of 75 mL Isovue 370 IV contrast. Reformatted coronal and sagittal images were reviewed as well as coronal MIP images. One of the following dose optimization techniques was utilized in the performance of this exam: auto mated exposure control; adjustment of the mA and/or kV according to the patient's size; or use of an iterative reconstruction technique. Specific details can be referenced in the facility's radiology C T exam operational policy. FINDINGS: No evidence of filling defect within the pulmonary vasculature to suggest pulmonary embolus. Heart is normal size without pericardial effusion. Minimal coronary artery calcifications. Aorta show s no aneurysm or dissection. The mediastinum and hilar regions show a few small lymph nodes without a ny enlarged lymph nodes. No abnormal density seen mediastinum. There is worsening interstitial patchy opacities seen in the right lung mainly in the right upper lob e and right middle lobe. There is a improved appearance to the opacity seen in the left lung. The radha ngs show no other focal consolidation. No pleural effusion or pneumothorax. No discrete nodule. There is mosaic pattern to the lungs. Bony structures show no acute fractures or aggressive bony lesions. Bone island seen in the spinous p rocess of T1. Disc spacer seen at the C7-T1 level. The chest wall shows no enlarged axillary lymph no tameka or masses. Small to moderate hiatal hernia which is stable. Upper abdomen is otherwise unremarkable. IMPRESSION: 1. No evidence of pulmonary embolus. 2. There is mild worsening interstitial opacities seen in the right lung more so on the right upper l obe. The left lung has improved from the previous examination. This may still be secondary to pneumon ia, including atypical and fungal. The lungs also show mild mosaic pattern which may be secondary to the pneumonia as well. Other etiologies for mosaic pattern could be secondary to early obstructive ch anges. 3. Other chronic stable findings as above. I called report to GIULIANA VASQUEZ at 12/23/2018 3:20 PM. Report Dictated By: Juan Carlos Mcmillan at 12/23/2018 2:58 PM Report E-Signed By: Juan Carlos Mcmillan at 12/23/2018 3:35 PM WSN:[id number]
== END ==
LOC: CT 12:26
PROVIDERS: ATTEND Family Medicine
DX: B96.1 Klebsiella pneumoniae [K. pneumoniae] as the cause of diseases classified elsewhere (principal)
CPT/HCPCS: 71046; 71275

== ENCOUNTER → 2019-02-01 | Outpatient (REF) ==
[2018-12-05 12:29] VITALS: BMI 32.9
[~2019-02-01] MED LIST changes: -NS 0.9% 25 ML BAG 50 ML ONE
[2019-02-01 13:52] LABS: LDL CHOLESTEROL 114 mg/dl
== END ==
DX: Z02.9 Encounter for administrative examinations, unspecified (principal)

== ENCOUNTER 2019-02-23 19:19 | Inpatient (IN) | payer SELFPAY ==
[2018-12-05 12:29] VITALS: Ht 160 cm; Wt 96.6 kg
[~2019-02-23] VITALS: Ht 160 cm; Wt 96.6 kg
--- NOTE | 2019-02-23 19:36 | ER Report ---
History and Physical Time Seen By MD: 19:36 HPI/ROS CHIEF COMPLAINT: Cough, shortness breath HISTORY OF PRESENT ILLNESS: Patient is a 53-year-old female here with complaints of cough, shortness breath, general malaise the past several days with increasing dyspnea starting today. Patient is afebrile at time of evaluation however appears clammy, fatigue and was notably hypoxic with an SPO2 of 82% on room air. Patient reportedly had been diagnosed previously over the past several months with pneumonia, Klebsiella pneumonia. Patient was transiently on supplemental oxygen during this period of time however is currently not. Patient is afebrile, mildly hypotensive at time of arrival. She does report sputum productive of dark material. REVIEW OF SYSTEMS: Constitutional: No fever, + chills. Eyes: No discharge. ENT: No sore throat. Cardiovascular: No chest pain, no palpitations. Respiratory: + cough, + shortness of breath. Gastrointestinal: No abdominal pain, no vomiting. Genitourinary: No hematuria. Musculoskeletal: No back pain. Skin: No rashes. Neurological: No headache. Allergies: Coded Allergies: Penicillins (Verified Allergy, Intermediate, 09/25/18) Home Meds Active Scripts Levothyroxine Sodium (LEVOTHYROXINE SODIUM) 25 Mcg Tablet, 1 TAB PO QDAY, #90 TAB 3 Refills Prov:MARTA BRADY MD 01/11/19 Hydrochlorothiazide (HYDROCHLOROTHIAZIDE) 25 Mg Tablet, 1 TAB PO QDAY, #30 TAB 11 Refills Prov:MARTA BRADY MD 12/16/18 Amlodipine Besylate (AMLODIPINE BESYLATE) 10 Mg Tablet, 1 TAB PO QDAY, #30 TAB 11 Refills Prov:MARTA BRADY MD 12/16/18 Diclofenac Sodium (Diclofenac Sodium) 1 % Gel..gram., 2 GM TOP QID PRN for PAIN, #100 GM 2 Refills Prov:BRAD SALINAS APRN-C 02/18/18 Rizatriptan Benzoate (MAXALT) 5 Mg Tablet, 1 TAB PO DAILY PRN for MIGRAINE, #15 TAB 5 Refills If no effect after 2 hours you may take a second tablet Prov:BRAD SALINAS APRN-C 08/25/17 Reported Medications Gabapentin (GABAPENTIN) 600 Mg Tablet, 600 MG PO TID 02/24/19 Trazodone Hcl (TRAZODONE HCL) 50 Mg Tablet, 50 MG PO QHS PRN for INSOMNIA 12/04/18 Tramadol Hcl (TRAMADOL HCL) 50 Mg Tablet, 50 MG PO Q6H PRN for PAIN, TAB 12/04/18 Hydrocodone Bit/Acetaminophen (HYDROCODON-ACETAMINOPHEN 5-325) 1 Each Tablet, 1 EACH PO Q6-8H PRN for PAIN, TAB 12/04/18 Amitriptyline Hcl (AMITRIPTYLINE HCL) 100 Mg Tablet, 100 MG PO QHS, TAB 12/04/18 Ferrous Sulfate (FERROUS SULFATE) 325 Mg Tablet, 325 MG PO DAILY 11/19/18 Albuterol Sulfate 90 Mcg/Act (PROAIR HFA 90 MCG/ACT) 8.5 Gm Hfa.aer.ad, 2 PUFF INH TID 11/07/18 Pantoprazole Sodium (PANTOPRAZOLE SODIUM) 40 Mg Tablet.dr, 40 MG PO QDAY, TAB.SR 09/25/18 Duloxetine Hcl (CYMBALTA) 30 Mg Capsule.dr, 30 MG PO HS 09/11/18 Duloxetine Hcl (CYMBALTA) 60 Mg Capsule.dr, 60 MG PO QDAY 03/11/18 Discontinued Reported Medications Gabapentin (GABAPENTIN) 300 Mg Capsule, 300 MG PO TID, CAPSULE 12/04/18 Discontinued Scripts Prednisone 10 Mg Tab (PREDNISONE 10 MG TAB) 10 Mg Tablet, 10 MG PO QDAY, #30 TAB Take 4 tabs for 2 days, then 3 tabs for 3 days, then 2 tabs for 3 days, then 1 tab for 3 days, then stop. Prov:BRITNEY MONTGOMERY 12/07/18 Sulfamethoxazole/Trimet 800-160 Mg Tab (BACTRIM DS TABLET) 1 Each Tablet, 1 TAB PO Q12H for 14 Days, #28 TAB Prov:BRITNEY MONTGOMERYP 12/07/18 Hx Smoking: Yes Smoking Status: Former Smoker Exposure to Second Hand Smoke?: Yes (both parents smoked, and children as well) Hx Substance Use Disorder: Yes Hx Alcohol Use: No Constitutional Vital Sign - Last 24 Hours 02/23/19 02/23/19 02/23/19 02/23/19 19:38 19:38 20:01 20:19 Temp 98.7 Pulse 90 92 Resp 19 13 B/P (MAP) 98/67 97/61 (73) Pulse Ox 86 92 O2 Delivery Room Air O2 Flow Rate 2.0 02/23/19 02/23/19 02/23/19 02/23/19 20:30 21:19 21:49 22:19 Pulse 91 87 92 Resp 15 16 B/P (MAP) 95/58 (70) Pulse Ox 95 92 91 02/23/19 02/23/19 02/23/19 02/23/19 22:19 22:49 23:00 23:29 Pulse 92 89 91 Resp 16 11 16 B/P (MAP) 123/72 (89) Pulse Ox 91 92 92 02/23/19 02/23/19 23:30 23:52 Pulse 97 Resp 13 B/P (MAP) 118/77 (91) Pulse Ox 95 Physical Exam General Appearance: The patient is alert, has no immediate need for airway protection and no signs of toxicity. Uncomfortable appearing Eyes: Pupils equal and round no pallor or injection. ENT, Mouth: Mucous membranes are moist. Respiratory: Diffuse rails, cough, no accessory muscle use or stridor Cardiovascular: Regular rate and rhythm. Gastrointestinal: Abdomen is soft and non tender, no masses, bowel sounds normal. Neurological: No focal neurological deficits Skin: Warm and dry, no rashes. Musculoskeletal: Neck is supple non tender. Extremities are nontender, nonswollen and have full range of motion. DIFFERENTIAL DIAGNOSIS: After history and physical exam differential diagnosis was considered for shortness of breath including but not limited to pulmonary infectious process, COPD, asthma, pulmonary embolus and congestive heart failure. Medical Decision Making Data Points Result Diagram: 02/23/19195402/23/191954 Laboratory Hematology Test 02/23/19 19:55 02/23/19 20:22 Red Blood Count 4.17 M/uL (4.17-5.56) Mean Corpuscular Volume 92.6 fL (80.0-96.0) Mean Corpuscular Hemoglobin 30.9 pg (26.0-33.0) Mean Corpuscular Hemoglobin Concent 33.4 g/dL (32.0-36.0) Red Cell Distribution Width 13.8 % (11.5-14.5) Mean Platelet Volume 7.3 fL (7.2-11.1) Neutrophils (%) (Auto) 86.5 % (39.4-72.5) Lymphocytes (%) (Auto) 8.3 % (17.6-49.6) Monocytes (%) (Auto) 3.6 % (4.1-12.4) Eosinophils (%) (Auto) 1.2 % (0.4-6.7) Basophils (%) (Auto) 0.4 % (0.3-1.4) Nucleated RBC Relative Count (auto) 0.0 /100WBC Neutrophils # (Auto) 14.1 K/uL (2.0-7.4) Lymphocytes # (Auto) 1.4 K/uL (1.3-3.6) Monocytes # (Auto) 0.6 K/uL (0.3-1.0) Eosinophils # (Auto) 0.2 K/uL (0.0-0.5) Basophils # (Auto) 0.1 K/uL (0.0-0.1) Nucleated RBC Absolute Count (auto) 0.00 K/uL Prothrombin Time 13.8 seconds (12.0-14.4) Prothromb Time International Ratio 1.05 Activated Partial Thromboplast Time 37 seconds (23-35) Sodium Level 137 mmol/L (137-145) Potassium Level 3.4 mmol/L (3.5-5.0) Chloride Level 99 mmol/L (98-107) Carbon Dioxide Level 26 mmol/L (22-31) Blood Urea Nitrogen 34 mg/dl (7-18) Creatinine 1.70 mg/dl (0.52-1.04) Glomerular Filtration Rate Calc 31.4 Random Glucose 93 mg/dl (75-110) Lactate 1.1 mmol/L (0.7-2.1) Calcium Level 8.4 mg/dl (8.4-10.2) Total Bilirubin 0.6 mg/dl (0.2-1.3) Aspartate Amino Transf (AST/SGOT) 26 U/L (0-35) Alanine Aminotransferase (ALT/SGPT) 26 U/L (0-56) Alkaline Phosphatase 71 U/L (0-126) B-Type Natriuretic Peptide 55 pg/ml (0-100) Total Protein 6.5 g/dl (6.3-8.2) Albumin 3.5 g/dl (3.5-5.0) Blood Gas Patient Temperature 98.7 DEGREES Venous Blood pH 7.32 (7.31-7.41) Venous Blood Partial Pressure CO2 43 mmHg Venous Blood Partial Pressure O2 38 mmHg Venous Blood HCO3 22 mmol/L Venous Blood Oxygen Saturation 67 % Venous Blood Base Excess -4 mmol/L Oxygen Liters/Minute 96% on 2l Chemistry Test 02/23/19 19:55 02/23/19 20:22 White Blood Count 16.3 k/uL (4.5-11.0) Red Blood Count 4.17 M/uL (4.17-5.56) Hemoglobin 12.9 g/dL (12.0-16.0) Hematocrit 38.7 % (34.0-47.0) Mean Corpuscular Volume 92.6 fL (80.0-96.0) Mean Corpuscular Hemoglobin 30.9 pg (26.0-33.0) Mean Corpuscular Hemoglobin Concent 33.4 g/dL (32.0-36.0) Red Cell Distribution Width 13.8 % (11.5-14.5) Platelet Count 351 K/uL (150-450) Mean Platelet Volume 7.3 fL (7.2-11.1) Neutrophils (%) (Auto) 86.5 % (39.4-72.5) Lymphocytes (%) (Auto) 8.3 % (17.6-49.6) Monocytes (%) (Auto) 3.6 % (4.1-12.4) Eosinophils (%) (Auto) 1.2 % (0.4-6.7) Basophils (%) (Auto) 0.4 % (0.3-1.4) Nucleated RBC Relative Count (auto) 0.0 /100WBC Neutrophils # (Auto) 14.1 K/uL (2.0-7.4) Lymphocytes # (Auto) 1.4 K/uL (1.3-3.6) Monocytes # (Auto) 0.6 K/uL (0.3-1.0) Eosinophils # (Auto) 0.2 K/uL (0.0-0.5) Basophils # (Auto) 0.1 K/uL (0.0-0.1) Nucleated RBC Absolute Count (auto) 0.00 K/uL Prothrombin Time 13.8 seconds (12.0-14.4) Prothromb Time International Ratio 1.05 Activated Partial Thromboplast Time 37 seconds (23-35) Glomerular Filtration Rate Calc 31.4 Lactate 1.1 mmol/L (0.7-2.1) Calcium Level 8.4 mg/dl (8.4-10.2) Total Bilirubin 0.6 mg/dl (0.2-1.3) Aspartate Amino Transf (AST/SGOT) 26 U/L (0-35) Alanine Aminotransferase (ALT/SGPT) 26 U/L (0-56) Alkaline Phosphatase 71 U/L (0-126) B-Type Natriuretic Peptide 55 pg/ml (0-100) Total Protein 6.5 g/dl (6.3-8.2) Albumin 3.5 g/dl (3.5-5.0) Blood Gas Patient Temperature 98.7 DEGREES Venous Blood pH 7.32 (7.31-7.41) Venous Blood Partial Pressure CO2 43 mmHg Venous Blood Partial Pressure O2 38 mmHg Venous Blood HCO3 22 mmol/L Venous Blood Oxygen Saturation 67 % Venous Blood Base Excess -4 mmol/L Oxygen Liters/Minute 96% on 2l Coagulation Test 02/23/19 19:55 Prothrombin Time 13.8 seconds Prothromb Time International Ratio 1.05 Activated Partial Thromboplast Time 37 seconds Microbiology Microbiology Date/Time Source Procedure Growth Status 02/23/19 21:13 Mouth Gram Stain - Final Complete EKG/Imaging Imaging PATIENT NAME: Rand Gautam : 1965 MR: [id number] V: [id number] EXAM DATE: ORDERING PHYSICIAN: JUDY SHAHID TECHNOLOGIST: Location: [facility] [place] Patient: Rand Gautam : 1965 Visit/Account:[id number] Date of Sevice: 02/23/2019 EXAMINATION: PA and Lateral Chest 02/23/2019 7:42 PM HISTORY: RESP DISTRESS. Chest pain and shortness of breath. COMPARISON: 12/23/2018 FINDINGS: Cardiomediastinal contours: Normal Lungs and pleura: Airspace infiltrate in the left lower lobe. Infrahilar opacity on the right may also be present. No significant effusion. Bones/soft tissues: Scoliotic spinal curvature. Previous lower cervical ACF. Cholecystectomy clips. IMPRESSION: Left lower lobe infiltrate and possibly infiltrate in the right infrahilar area. Report Dictated By: Oswald Rai MD at 02/23/2019 10:44 PM ED Course/Re-evaluation ED Course Patient is a 52-year-old female here with complaints of shortness breath, cough which acutely worsened today. In the recent past she has had several episodes of pneumonia including Klebsiella pneumonia. She recalls coughing up dark sputum today prompting evaluation. She was noted to be 82% on room air at time of arrival. Patient did have a low white blood cell count 16,000, acute kidney injury compared to prior labs. Patient was given IV fluids, blood cultures were collected. Patient was also given methylprednisolone, ceftriaxone for treatment. I discussed the patient with Dr. Martinez who admitted the patient to the hospitalist service. Patient was stable at time of admission. Decision to Disposition Date: February 23, 2019 Decision to Disposition Time: 22:30 Depart Departure Latest Vital Signs Vital Signs Date Time Temp Pulse Resp B/P (MAP) Pulse Ox O2 Delivery O2 Flow Rate FiO2 02/23/19 23:52 118/77 (91) 02/23/19 23:30 97 13 95 02/23/19 19:38 2.0 02/23/19 19:38 98.7 Room Air Impression: Primary Impression: Pneumonia Additional Impression: Dyspnea Condition: Improved Disposition: Admitted from ER Referrals: MARTA BRADY MD (PCP) Problem Qualifiers JUDY SHAHID DO February 23, 2019 19:36
[2019-02-23] MEDS ORDERED: NS(*) 0.9% 1000 ML BAG 1,000 ML IV ONE ×2 (19:42→23:35)
[2019-02-23] MEDS ORDERED: methylPREDNIS SUCC 125 MG/2ML IVP ONE (19:45)
[2019-02-23 20:04] LABS: PLATELET COUNT, AUTOMATED 351 K/uL (150-450)
--- NOTE | 2019-02-23 20:15 | EKG ---
FACILITY: [facility] PATIENT NAME: LUCINDA HANDLEY : [id number] MR: [id number] V: [id number] EXAM DATE: ORDERING PHYSICIAN: JUDY SHAHID TECHNOLOGIST: ROYCE Test Reason : SOB Blood Pressure : / mmHG Vent. Rate : 097 BPM Atrial Rate : 097 BPM P-R Int : 138 ms QRS Dur : 082 ms QT Int : 362 ms P-R-T Axes : 036 033 027 degrees QTc Int : 459 ms Sinus rhythm with frequent premature ventricular complexes Otherwise normal ECG When compared with ECG of 07-NOV-2018 05:23, fusion complexes are no longer present premature ventricular complexes are now present T wave amplitude has decreased in Anterior leads Confirmed by DAVID CRUZ ([id number]) on 02/23/2019 10:34:06 PM Referred By: Confirmed By:DAVID CRUZ
[2019-02-23 21:01] LABS: INR 1.05
--- NOTE | 2019-02-23 22:48 | RADIOLOGY IMAGING REPORT ---
FACILITY: [facility] [place] PATIENT NAME: Rand Gautam : 1965 MR: [id number] V: [id number] EXAM DATE: ORDERING PHYSICIAN: JUDY SHAHID TECHNOLOGIST: Location: [facility] - [place], [place] Patient: Rand Gautam : 1965 Visit/Account:[id number] Date of Sevice: 02/23/2019 EXAMINATION: PA and Lateral Chest 02/23/2019 7:42 PM HISTORY: RESP DISTRESS. Chest pain and shortness of breath. COMPARISON: 12/23/2018 FINDINGS: Cardiomediastinal contours: Normal Lungs and pleura: Airspace infiltrate in the left lower lobe. Infrahilar opacity on the right may als o be present. No significant effusion. Bones/soft tissues: Scoliotic spinal curvature. Previous lower cervical ACF. Cholecystectomy clips. IMPRESSION: Left lower lobe infiltrate and possibly infiltrate in the right infrahilar area. Report Dictated By: Oswald Rai MD at 02/23/2019 10:44 PM Report E-Signed By: Oswald Rai MD at 02/23/2019 10:45 PM WSN:[id number]
[2019-02-23] MEDS ORDERED: cefTRIAXone 1 GM VIAL IVP ONE (22:50)
[2019-02-23] MEDS ORDERED: INFLUENZA VIRUS VAC 0.5ML SYR IM ONLY ONE (23:35)
[2019-02-23] MEDS ORDERED: ALBUTEROL 2.5 MG/3 ML NEB NEB PRN (23:35)
[2019-02-23] MEDS ORDERED: traZODone HCL 50 MG TAB PO PRN (23:45)
[2019-02-24 00:05] VITALS: BP 111/67
--- NOTE | 2019-02-24 00:09 | History & Physical ---
History of Present Illness History of Present Illness 53yo female with recent pneumonias in the last 3 months who came to the ER for cough. 2 days ago, she developed a cough with dark sputum production and anterior chest pain with the coughing. She denies f/c/LE ed placido/n/v/diarrhea/orthopnea. She was admitted 11/07-11/09 and 12/04-12/07 for pneumonias. The last admission, she grew klebsiella pneumoniae that was fairly sensitive from her sputum. However, she reports being on a couple more courses of antibiotics and an antifungal. She denies tobacco use. In the ER, she was given a liter of NS and ceftriaxone. History Problems: (1) Pneumonia Status: Acute (2) HTN (hypertension) Status: Chronic (3) Hypothyroidism Status: Chronic (4) Fibromyalgia Status: Chronic (5) Chronic back pain Status: Chronic Home Meds Active Scripts Levothyroxine Sodium (LEVOTHYROXINE SODIUM) 25 Mcg Tablet, 1 TAB PO QDAY, #90 TAB 3 Refills Prov:MARTA BRADY MD 01/11/19 Hydrochlorothiazide (HYDROCHLOROTHIAZIDE) 25 Mg Tablet, 1 TAB PO QDAY, #30 TAB 11 Refills Prov:MARTA BRADY MD 12/16/18 Amlodipine Besylate (AMLODIPINE BESYLATE) 10 Mg Tablet, 1 TAB PO QDAY, #30 TAB 11 Refills Prov:MARTA BRADY MD 12/16/18 Prednisone 10 Mg Tab (PREDNISONE 10 MG TAB) 10 Mg Tablet, 10 MG PO QDAY, #30 TAB Take 4 tabs for 2 days, then 3 tabs for 3 days, then 2 tabs for 3 days, then 1 tab for 3 days, then stop. Prov:BRITNEY MONTGOMERY 12/07/18 Sulfamethoxazole/Trimet 800-160 Mg Tab (BACTRIM DS TABLET) 1 Each Tablet, 1 TAB PO Q12H for 14 Days, #28 TAB Prov:BRITNEY MONTGOMERY 12/07/18 Diclofenac Sodium (Diclofenac Sodium) 1 % Gel..gram., 2 GM TOP QID PRN for PAIN, #100 GM 2 Refills Prov:BRAD SALINAS APRN DIESEL TRUCK CRANE OPERATOR-C 02/18/18 Rizatriptan Benzoate (MAXALT) 5 Mg Tablet, 1 TAB PO DAILY PRN for MIGRAINE, #15 TAB 5 Refills If no effect after 2 hours you may take a second tablet Prov:RITABRAD CARLITOS DIESEL TRUCK CRANE OPERATOR-C 08/25/17 Reported Medications Trazodone Hcl (TRAZODONE HCL) 50 Mg Tablet, 50 MG PO QHS PRN for INSOMNIA 12/04/18 Tramadol Hcl (TRAMADOL HCL) 50 Mg Tablet, 50 MG PO Q6H PRN for PAIN, TAB 12/04/18 Hydrocodone Bit/Acetaminophen (HYDROCODON-ACETAMINOPHEN 5-325) 1 Each Tablet, 1 EACH PO Q6-8H PRN for PAIN, TAB 12/04/18 Gabapentin (GABAPENTIN) 300 Mg Capsule, 300 MG PO TID, CAPSULE 12/04/18 Amitriptyline Hcl (AMITRIPTYLINE HCL) 100 Mg Tablet, 100 MG PO QHS, TAB 12/04/18 Ferrous Sulfate (FERROUS SULFATE) 325 Mg Tablet, 325 MG PO DAILY 11/19/18 Albuterol Sulfate 90 Mcg/Act (PROAIR HFA 90 MCG/ACT) 8.5 Gm Hfa.aer.ad, 2 PUFF INH TID 11/07/18 Pantoprazole Sodium (PANTOPRAZOLE SODIUM) 40 Mg Tablet.dr, 40 MG PO QDAY, TAB.SR 09/25/18 Duloxetine Hcl (CYMBALTA) 30 Mg Capsule.dr, 30 MG PO HS 09/11/18 Duloxetine Hcl (CYMBALTA) 60 Mg Capsule.dr, 60 MG PO QDAY 03/11/18 Allergies: Coded Allergies: Penicillins (Verified Allergy, Intermediate, 09/25/18) Patient History: FH: COPD (chronic obstructive pulmonary disease) FATHER, , Age:63 MOTHER, , Age:67 FH: diabetes mellitus FATHER, , Age:63 MOTHER, , Age:67 BROTHER OR SISTER BROTHER OR SISTER BROTHER OR SISTER BROTHER OR SISTER FH: diabetes mellitus FATHER, , Age:63 MOTHER, , Age:67 BROTHER OR SISTER BROTHER OR SISTER BROTHER OR SISTER BROTHER OR SISTER FH: lung cancer Hx Smoking: Yes Smoking Status: Former Smoker Exposure to Second Hand Smoke?: Yes (both parents smoked, and children as well) Caffeine Intake: Soda Caffeine/Cups Per Day: OCCASIONAL Hx Alcohol Use: No Hx Substance Use Disorder: Yes Social Drug Use: Former Social Drugs: Marijuana, Prescription Drugs Review of Systems All Systems Reviewed/Normal: Yes, Except as Noted Exam Vital Signs Vital Signs Date Time Temp Pulse Resp B/P (MAP) Pulse Ox O2 Delivery O2 Flow Rate FiO2 02/23/19 19:38 2.0 02/23/19 19:38 98.7 90 19 98/67 86 Room Air General Appearance: Alert, Awake, No Acute Distress (pale. Normal wob) Neuro: No Gross deficits ENT: Moist Mucous Membranes Cardiovascular: Regular Rate and Rhythm, No JVD Respiratory: Other (Bibasilar insp crackles) GI: Abd Soft and Non-Tender Extremities: No Edema Integumentary: No Jaundice, No Cyanosis Medical Decision Making Data Points Result Diagram: 02/23/19195402/23/191954 Item Value Date Time Neutrophils (%) (Auto) 86.5 % H 02/23/191954 Lymphocytes (%) (Auto) 8.3 % L 02/23/191954 Monocytes (%) (Auto) 3.6 % L 02/23/191954 Lactate 1.1 mmol/L 02/23/191954 Blood Urea Nitrogen 15 mg/dl 02/01/191057 Creatinine 0.70 mg/dl 02/01/191057 Blood Urea Nitrogen 34 mg/dl H 02/23/191954 Creatinine 1.70 mg/dl H 02/23/191954 B-Type Natriuretic Peptide 55 pg/ml 02/23/191954 Aspartate Amino Transf (AST/SGOT) 26 U/L 02/23/191954 Total Bilirubin 0.6 mg/dl 02/23/191954 Alanine Aminotransferase (ALT/SGPT) 26 U/L 02/23/191954 Alkaline Phosphatase 71 U/L 02/23/191954 EKG / Imaging EKG Interpretation Vent. Rate : 097 BPM Atrial Rate : 097 BPM P-R Int : 138 ms QRS Dur : 082 ms QT Int : 362 ms P-R-T Axes : 036 033 027 degrees QTc Int : 459 ms Sinus rhythm with frequent premature ventricular complexes Otherwise normal ECG When compared with ECG of 07-NOV-2018 05:23, fusion complexes are no longer present premature ventricular complexes are now present T wave amplitude has decreased in Anterior leads Confirmed by DAVID CRUZ ([id number]) on 02/23/2019 10:34:06 PM Imaging CXR - Left lower lobe infiltrate and possibly infiltrate in the right infrahilar area. Assessment and Plan Problems: (1) Pneumonia Status: Acute Assessment & Plan: She presented with 2 days of productive cough. She was found to have new LLL infiltrate and possibly right infrahilar by CXR. She is hypoxic, has an elevated WBC/Cr and low normal BP. Lactate is normal. She will be on treatment with Rocephin and Azithromycin. She was given a dose of methylprednisolone in the ER, but because she is not wheezing, that will be stopped. Scheduled DuoNeb and Mucinex. Albuterol, Tessalon Perles, and Robitussin DM prn. She was admitted in October and November for pneumonias. She grew a sensitive Klebsiella pneumoniae in November. Because of the recurrence, will ask ST to evaluate for silent aspiration. Also, she chronically is on a PPI, which potentially could be weaned off, but will defer to her PCP. Likely, she would benefit from evaluation from a Site Promotion Agent as an outpatient. (2) ARF (acute renal failure) Status: Acute Assessment & Plan: Likely, secondary to dehydration that was exacerbated by chronic HCTZ use. Hydrate and follow. (3) HTN (hypertension) Status: Chronic Assessment & Plan: Chronically on amlodipine and HCTZ. Both held. (4) Fibromyalgia Status: Chronic Assessment & Plan: Chronically on Cymbalta, amitriptyline and trazodone, which will be continued. Copies to: GIULIANA VASQUEZ MD ; Venous Thromboembolism Antithrombotics Is Pt On Any Antithrombotics?: No Exam Sepsis Risk: No Definite Risk DAVID CRUZ MD February 24, 2019 00:09
[2019-02-24] MEDS ORDERED: GUAIFENESIN/DEXTROMETHORPHAN 5 ML PO PRN (00:10)
[2019-02-24] MEDS ORDERED: BENZONATATE 100 MG CAP PO PRN (00:10)
[2019-02-24] MEDS ORDERED: GABA-533 PO (00:11)
[2019-02-24] MEDS: AZITHROMYCIN(*) 500 MG 500 MG in NS(*) 0.9% 250 ML BAG 250 ML IVPB SCH (00:22)
[2019-02-24] MEDS: AMITRIPTYLINE HCL 25 MG TAB PO SCH ×2 (00:23→21:22)
[2019-02-24] MEDS: ALBUTEROL/IPRATROPIUM 3 ML NEB NEB SCH ×3 (05:24→16:46)
[2019-02-24 05:40] VITALS: BP 103/66
[2019-02-24] MEDS: LEVOTHYROXINE SOD 0.025 MG TAB PO SCH (05:41)
[2019-02-24 06:56] VITALS: BP 115/72
[2019-02-24 07:19] LABS: PLATELET COUNT, AUTOMATED 326 K/uL (150-450)
[2019-02-24] MEDS ORDERED: GABAPENTIN 300 MG CAP PO SCH (09:00)
[2019-02-24] MEDS ORDERED: ACETAMINOPHEN 325 MG TAB PO PRN (09:00)
[2019-02-24] MEDS ORDERED: ENOXAPARIN 30 MG/0.3 ML SYR SC SCH (09:00)
--- NOTE | 2019-02-24 10:02 | Hospitalist Progress Note ---
Subjective Progress Notes Subjective She reports some improvements. No fever. WBC count normalized. Physical Exam Vital Signs Date Time Temp Pulse Resp B/P (MAP) Pulse Ox O2 Delivery O2 Flow Rate FiO2 02/24/19 07:30 93 Nasal Cannula 1.5 02/24/19 06:56 97.7 115/72 (86) 02/24/19 05:40 87 16 Intake and Output 02/24/19 07:00 Intake Total 1010 ml Balance 1010 ml Intake Oral 400 ml IV Total 610 ml # Voids 1 General Appearance: Alert, Awake Cardiovascular: Regular Rate and Rhythm Respiratory: Other (few rales at left base/no wheezes) GI: Soft and Non-Tender Extremities: Warm, Perfused Psych: Alert & Oriented X3 Result Diagram: 02/24/1969902/24/19699 Assessment and Plan Problems: (1) Pneumonia Status: Acute Assessment & Plan: She presented with 2 days of productive cough. She was found to have new LLL infiltrate and possibly right infrahilar by CXR. She is hypoxic, had an elevated WBC. Lactate was normal. She is on treatment with IV Rocephin and Azithromycin. She was given a dose of methylprednisolone in the ER, but because she has not been wheezing, so that has been stopped. She is on scheduled DuoNeb and Mucinex, as well as Albuterol, Tessalon Perles, and Robitussin DM prn. She was admitted in October and November of this year for pneumonia also. She grew a sensitive Klebsiella pneumoniae in November. Because of the recurrence, will ask ST to evaluate for "silent" aspiration. Also, she chronically is on a PPI, which potentially could be weaned off, but will defer to her PCP. Likely, she would benefit from evaluation with a Continuous Pickling Line Pickler Helper as an outpatient. (2) ARF (acute renal failure) Status: Acute Assessment & Plan: Improved/resolved. Creatinine is 0.9 this AM. Likely, secondary to dehydration that was exacerbated by chronic HCTZ use. Monitor. (3) HTN (hypertension) Status: Chronic Assessment & Plan: Chronically on amlodipine and HCTZ. Both currently being held. BPs have been acceptable (in low normal range). Monitor. (4) Fibromyalgia Status: Chronic Assessment & Plan: Chronically on Cymbalta, amitriptyline, and trazodone, which have been continued. Exam Sepsis Risk: No Definite Risk EDMUNDO TAPIA MD February 24, 2019 10:02
[2019-02-24] MEDS: PANTOPRAZOLE SOD 40 MG TABEC PO SCH (10:03)
[2019-02-24] MEDS: guaiFENesin 600 MG TABCR PO SCH ×2 (10:03→21:22)
[2019-02-24] MEDS: DULoxetine HCL 30 MG CAPCR PO SCH (10:03)
--- NOTE | 2019-02-24 10:27 | Antimicrobial Stewardship ---
Antimicrobial Stewardship Empiricly appropriate: Yes (Pneumonia - CAP - azithromycin + Ceftriaxone) Significant PMH: Yes (Previous pneumonia - Nov 17 and November) Support empiric regimen: Yes Comment Last Pneumonia - Sputum Cx grew K. pneumoniae Approriate Cultures done: Yes (Sputum Cx pending, Blood Cx pending) Gram stain show Microbs: Yes (Gram stain shows: GPC, GNR, GPR) Renal/Hepatic dosing: Yes (Scr from 1.7 to 0.9--> now at baseline) Determine cumulative duration: 02/24/19- Abx started- today is day 1 Determine standard duration: 5 days minimum, may require a longer course, third round of PNA in 4 mo Comment 53 yo F with a history of pneumonia in Oct, November, and now January who presented to the ED with SOB, coughing, and malaise. Upon arrival to the ED her O2 sats were 82%. Tmax afebrile WBC 16.3--> 9.2 Neuts 86.5%, 92.9% Scr 1.7, 0.9 Sputum Cx - GPC, GNR, GPR Blood Cx x 2 - NGTD Chest xray - LLL infiltrate, R infrahilar infiltrate Started on azithromycin and ceftriaxone in the ED. Prior cultures with K. pneumoniae, sensitive to azithromycin/ceftriaxone combo. May need a longer course based on repeat admissions secondary to pneumonia. As a patient that has received IV abx within the last 90 days, she is at risk for MDROs. Would have a low threshold for broadening her antibiotics to cover MDROs if she deteriorates at all. Will watch closely and adjust antibiotics as appropriate. Salina Bennett, PharmD, BCOP SALINA BENNETT February 24, 2019 10:20
[2019-02-24 10:38] VITALS: BP 109/69
[2019-02-24 14:26] VITALS: BP 124/75
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
[2019-02-24 18:58] VITALS: BP 128/65
[2019-02-24] MEDS ORDERED: NS(*) 0.9% 500 ML BAG 500 ML ONE (21:19)
[2019-02-24] MEDS ORDERED: cefTRIAXone(*) 1 GM VIAL 1 GM in NS(*) 0.9% 100 ML MINI-BAG 100 ML IVPB SCH (22:00)
[2019-02-25] MEDS: AZITHROMYCIN(*) 500 MG 500 MG in NS(*) 0.9% 250 ML BAG 250 ML IVPB SCH (00:42)
[2019-02-25] MEDS: ALBUTEROL/IPRATROPIUM 3 ML NEB NEB SCH ×2 (05:30→11:00)
[2019-02-25 05:50] VITALS: BP 119/67
[2019-02-25] MEDS: LEVOTHYROXINE SOD 0.025 MG TAB PO SCH (05:50)
[2019-02-25 06:19] LABS: PLATELET COUNT, AUTOMATED 321 K/uL (150-450)
[2019-02-25 06:53] VITALS: BP 111/64
[2019-02-25] MEDS: DULoxetine HCL 30 MG CAPCR PO SCH (08:38)
[2019-02-25] MEDS: PANTOPRAZOLE SOD 40 MG TABEC PO SCH (08:38)
[2019-02-25] MEDS: guaiFENesin 600 MG TABCR PO SCH (08:38)
[2019-02-25] MEDS ORDERED: CEFD300C35 PO (08:53)
[2019-02-25] MEDS ORDERED: AZIT-1 PO (08:53)
--- NOTE | 2019-02-25 08:59 | Hospitalist Depart ---
Discharge Summary Reason for Hosp/Final Diag: (1) Pneumonia Status: Acute Hospital Course & Plan: Her chest x-ray did show a left sided, and possible right sided infiltrate. She was started on empiric treatment with ceftriaxone and azithromycin. Her cultures have been negative and she remains afebrile. She has been converted to oral azithromycin and cefdinir. She has had multiple episodes of pneumonia in the last 6 months. Her chest x-ray should be repeated in 4 weeks, and pulmonary consultation should be considered if it remains abnormal. (2) ARF (acute renal failure) Status: Acute Hospital Course & Plan: Resolved with IV fluids. Her diuretic has been discontinued. (3) HTN (hypertension) Status: Chronic Hospital Course & Plan: She had previously been on amlodipine and hy drochlorothiazide. However, her blood pressures have been normal without these medications. Both have been discontinued. (4) Fibromyalgia Status: Chronic Hospital Course & Plan: Chronically on Cymbalta, amitriptyline, and trazodone, which have been continued. Departure Latest Vital Signs Vital Signs 02/25/19 02/25/19 06:53 07:35 Temp 98.4 Pulse 78 Resp 12 B/P (MAP) 111/64 (80) Pulse Ox 93 O2 Delivery Room Air O2 Flow Rate 1.0 Weight (Pounds): 213 Weight (Ounces): 1.0 Result Diagram: 02/25/1957 02/25/19556 Condition: Improved Discharge: Home, Self Care Discharge Instructions Home Meds Active Scripts Cefdinir 300 Mg Cap (OMNICEF 300 MG CAP (OR EQUIV)) 300 Mg Capsule, 300 MG PO BID, #10 CAPSULE Prov:JOHNNY GANDARA DO 02/25/19 Azithromycin (ZITHROMAX) 250 Mg Tablet, 1 TAB PO QDAY, #4 TAB Prov:JOHNNY GANDARA DO 02/25/19 Levothyroxine Sodium (LEVOTHYROXINE SODIUM) 25 Mcg Tablet, 1 TAB PO QDAY, #90 TAB 3 Refills Prov:MARTA BRADY MD 01/11/19 Diclofenac Sodium (Diclofenac Sodium) 1 % Gel..gram., 2 GM TOP QID PRN for PAIN, #100 GM 2 Refills Prov:BRAD SALINAS APRN SEISMOGRAPH OBSERVER-C 02/18/18 Rizatriptan Benzoate (MAXALT) 5 Mg Tablet, 1 TAB PO DAILY PRN for MIGRAINE, #15 TAB 5 Refills If no effect after 2 hours you may take a second tablet Prov:BRAD SALINAS APRN SEISMOGRAPH OBSERVER-C 08/25/17 Reported Medications Gabapentin (GABAPENTIN) 600 Mg Tablet, 600 MG PO TID 02/24/19 Trazodone Hcl (TRAZODONE HCL) 50 Mg Tablet, 50 MG PO QHS PRN for INSOMNIA 12/04/18 Tramadol Hcl (TRAMADOL HCL) 50 Mg Tablet, 50 MG PO Q6H PRN for PAIN, TAB 12/04/18 Amitriptyline Hcl (AMITRIPTYLINE HCL) 100 Mg Tablet, 100 MG PO QHS, TAB 12/04/18 Ferrous Sulfate (FERROUS SULFATE) 325 Mg Tablet, 325 MG PO DAILY 11/19/18 Albuterol Sulfate 90 Mcg/Act (PROAIR HFA 90 MCG/ACT) 8.5 Gm Hfa.aer.ad, 2 PUFF INH TID 11/07/18 Pantoprazole Sodium (PANTOPRAZOLE SODIUM) 40 Mg Tablet.dr, 40 MG PO QDAY, TAB.SR 09/25/18 Duloxetine Hcl (CYMBALTA) 30 Mg Capsule.dr, 30 MG PO HS 09/11/18 Duloxetine Hcl (CYMBALTA) 60 Mg Capsule.dr, 60 MG PO QDAY 03/11/18 Discontinued Reported Medications Hydrocodone Bit/Acetaminophen (HYDROCODON-ACETAMINOPHEN 5-325) 1 Each Tablet, 1 EACH PO Q6-8H PRN for PAIN, TAB 12/04/18 Gabapentin (GABAPENTIN) 300 Mg Capsule, 300 MG PO TID, CAPSULE 12/04/18 Discontinued Scripts Hydrochlorothiazide (HYDROCHLOROTHIAZIDE) 25 Mg Tablet, 1 TAB PO QDAY, #30 TAB 11 Refills Prov:MARTA BRADY MD 12/16/18 Amlodipine Besylate (AMLODIPINE BESYLATE) 10 Mg Tablet, 1 TAB PO QDAY, #30 TAB 11 Refills Prov:MARTA BRADY MD 12/16/18 Prednisone 10 Mg Tab (PREDNISONE 10 MG TAB) 10 Mg Tablet, 10 MG PO QDAY, #30 TAB Take 4 tabs for 2 days, then 3 tabs for 3 days, then 2 tabs for 3 days, then 1 tab for 3 days, then stop. Prov:BRITNEY MONTGOMERY 12/07/18 Sulfamethoxazole/Trimet 800-160 Mg Tab (BACTRIM DS TABLET) 1 Each Tablet, 1 TAB PO Q12H for 14 Days, #28 TAB Prov:BRITNEY MONTGOMERY 12/07/18 Diet: Regular Activity: As Tolerated Venous Thromboembolism Antithrombotics Is Pt On Any Antithrombotics?: No Problem Qualifiers (1) Pneumonia: Pneumonia type: due to unspecified organism JOHNNY GANDARA DO February 25, 2019 08:59
[2019-02-25] MEDS ORDERED: ENOXAPARIN 40 MG/0.4ML SYR SC SCH (09:00)
--- NOTE | 2019-02-25 13:54 | SWALLOW EVALUATION ---
BEDSIDE DYSPHAGIA laborer pipelines: Deborah Mota MS, [facility] MACHINE OPERATOR, Katja Baxter, Outpatient Coordinator Clinician Type of Assessment: Bedside dysphagia evaluation Patient: Rand Gautam : 1965 Evaluation Date: 02/25/2019 BACKGROUND The patient is 53 year old female [facility] with 2 day productive cough with pain. Chest xray shows LLL infiltrate and possibly R infrahilar. She has a PMHx of pneumonia in both October and November of 2018. Is also has GERD and takes both Protonix and OTC medicines but reports continued symptoms. She denies any s/s of pharyngeal dysphagia. Her spouse was present for the assessment and endorses this denial. Primary Medical Diagnosis: Pulmonary Embolus Medical History: GERD, Pneumonia Pain Scale (0-10): denies LOC / Participation: Alert, participated in all evaluation tasks. Follows Instructions: Yes, multiple step Orientation: Alert, x4 Functional Communication Deficits impact swallow function/safety, or response to therapy: no DYSPHAGIA ASSESSMENT Sialorrhea: No Xerostomia: No Supplemental Oxygen Use: Yes, 1.5L, nasal cannula COPD Dx: No Pain with Swallow: Denies Pt was seen at the bedside for clinical swallowing assessment. was present throughout encounter. Pt was alert and participatory. She was preparing for discharge to home. She responded to all questions verbally and appropriately. No shortness of breath or uneven breathing was observed. Normal vocal quality. PO trials not administered as pt was preparing for dc to home and strongly denied any s/s of oral and pharyngeal dysphagia. However, she does endorse a long hx of s/s of esophageal dysphagia for which she is currently taking both prescription (Protonix) and OTC medication. Despite medication, she reports continued symptoms of GERD. She reports she frequently wakes at night coughing. When her asks heartburn she typically responds affirmatively. This is reported to occur 1-3x/week. She reports sleeping flat. She reports spicy foods often result in heartburn symptoms but she does not avoid these foods as she enjoys them. Provided verbal educated to pt on anatomy/physiology of pharyngeal and esophageal dysphagia as well as recommendations for esophageal dysphagia management including: remaining upright following meals at least 45 minutes, eating smaller and earlier meals, avoiding problematic foods, and sleeping at an incline. Pt agrees to implement these recommendations. OVERALL IMPRESSION Suspected esophageal dysphagia with LPR and subsequent aspiration of refluxed materials. MALAIKA: Level 7: Pharyngeal stage swallow normal in all situations. Normal diet. Modifications d/t suspected esophageal dysphagia only Aspiration Risk: Elevated d/t suspected laryngopharyngeal reflux with subsequent aspiration of refluxed materials RECOMMENDATIONS 1. Diet: PER (IDDS 7), regular/thin liquids (IDDS 0) 2. Medications: whole ok 3. Esophageal dysphagia management including: remaining upright following meals at least 45 minutes, eating smaller and earlier meals, avoiding problematic foods, and sleeping at an incline. Pt agrees to implement these recommendations. Verbal and written education provided 4. Esophagram to further assess for esophageal dysphagia 5. Modified barium swallow study may be appropriate if esophageal dysphagia and/or pulmonary assessments are not informative/inconclusive. Speech Therapy Need Not at this time. Thank you for this referral. Please call [phone] (outpatient rehab) or [phone] (inpatient rehab) to contact the [facility] MACHINE OPERATOR. Respectfully, Deborah Mota M.S., [facility] MACHINE OPERATOR MTDD
== END 2019-02-25 12:30 | disposition home or self-care (01) | DRG 194 ==
LOC: ER 19:54 → EDBEDREQ 23:39 → MED 23:52
PROVIDERS: ADMIT Internal Medicine; ATTEND Internal Medicine
DX: J18.9 Pneumonia, unspecified organism (principal); N17.9 Acute kidney failure, unspecified; I10 Essential (primary) hypertension; M79.7 Fibromyalgia; R09.02 Hypoxemia; G89.29 Other chronic pain; E86.0 Dehydration; T50.2X5A Adverse effect of carbonic-anhydrase inhibitors, benzothiadiazides and other diuretics, initial encounter; Z88.0 Allergy status to penicillin; Z87.891 Personal history of nicotine dependence; Z90.49 Acquired absence of other specified parts of digestive tract; Z98.1 Arthrodesis status
CPT/HCPCS: 36415; 71046; 82040; 82247; 82310; 82374; 82435; 82565; 82803; 82947; 83605; 83880; 84075; 84132; 84155; 84295; 84450; 84460; 84520; 85025; 85610; 85730; 87040; 87070; 87205; 93005; 94640; 96361; 96374; 96375; 99284; J0456; J0696; J1650; J2930; J7030; J7040; J7050

== ENCOUNTER → 2019-03-15 | Outpatient (CLI) | payer SELFPAY ==
[2018-12-05 12:29] VITALS: BMI 32.9
[~2019-03-15] MED LIST changes: +CEFD300C35 PO; +GABA-533 PO; -TRAZ50TA34 PO; +TRAZ50TA52 PO
--- NOTE | 2019-03-15 17:22 | RADIOLOGY IMAGING REPORT ---
FACILITY: [facility] - [place] PATIENT NAME: Rand Gautam : 1965 MR: [id number] V: [id number] EXAM DATE: ORDERING PHYSICIAN: GIULIANA VASQUEZ TECHNOLOGIST: Location: [facility] - [place] Patient: Rand Gautam : 1965 Visit/Account:[id number] Date of Sevice: 03/15/2019 Technique: CHEST PA LAT HISTORY: Pneumonia Comparison studies: 02/23/2019 FINDINGS: Improved appearance hazy airspace opacities are noted within the bases. Small residual lef t basilar atelectasis and/or scarring. Lung apices are clear. No pleural effusion. Cardiac silhoue tte is unchanged. IMPRESSION: 1. Interval improvement of the multilobar pneumonia. Report Dictated By: Yg Maria DO at 03/15/2019 5:13 PM Report E-Signed By: Yg Marai DO at 03/15/2019 5:17 PM WSN:[email or web address]
== END ==
LOC: RAD 16:20
PROVIDERS: ATTEND Family Medicine
DX: K21.9 Gastro-esophageal reflux disease without esophagitis (principal); B96.1 Klebsiella pneumoniae [K. pneumoniae] as the cause of diseases classified elsewhere
CPT/HCPCS: 71046

== ENCOUNTER → 2019-03-22 | Outpatient (CLI) | payer BC ==
[2018-12-05 12:29] VITALS: BMI 32.9
--- NOTE | 2019-03-22 15:43 | RADIOLOGY IMAGING REPORT ---
FACILITY: [facility] - [place] PATIENT NAME: Rand Gautam : 1965 MR: [id number] V: [id number] EXAM DATE: ORDERING PHYSICIAN: GIULIANA VASQUEZ TECHNOLOGIST: Location: [facility] - [place] Patient: Rand Gautam : 1965 Visit/Account:[id number] Date of Sevice: 03/22/2019 ESOPHAGRAM Indication: Heartburn, history of gastric bypass 12 years ago. Comparison: None. Radiation dose: DAP 1160.11 uGym2; AK 28.60 mGy Findings: A biphasic esophagram was performed, with thin and thick barium. Normal mucosa is seen th roughout the esophagus, without evidence of ulcer, mass, or stricture. Moderate size gastric hiatal hernia is seen. There are postoperative changes from a gastric bypass, which is intact. Cervical esophagus is normal. Normal peristalsis seen. There are surgical changes from anterior cer vical discectomy and fusion hardware at C4-5, C5-6, and C6-7. Gastroesophageal reflux is identified to the level of the midesophagus. IMPRESSION: 1. Normal mucosa of the esophagus, without evidence of ulcer mass or stricture. 2. Moderate gastroesophageal reflux identified, to the level of the midesophagus. 3. Small gastric hiatal hernia. 4. Postoperative changes from a gastric bypass. Report Dictated By: Oswald Ross at 03/22/2019 3:34 PM Report E-Signed By: Oswald Ross at 03/22/2019 3:37 PM WSN:[email or web address]
== END ==
LOC: RAD 00:21
PROVIDERS: ATTEND Family Medicine
DX: K21.9 Gastro-esophageal reflux disease without esophagitis (principal); K44.9 Diaphragmatic hernia without obstruction or gangrene; Z98.84 Bariatric surgery status
CPT/HCPCS: 74220

== ENCOUNTER → 2019-04-07 | Outpatient (CLI) | payer BC ==
[2018-12-05 12:29] VITALS: BMI 32.9
--- NOTE | 2019-04-08 00:32 | RADIOLOGY IMAGING REPORT ---
FACILITY: [facility] - [place] PATIENT NAME: Rand Gautam : 1965 MR: [id number] V: [id number] EXAM DATE: ORDERING PHYSICIAN: GIULIANA VASQUEZ TECHNOLOGIST: Location: [facility] - [place] Patient: Rand Gautam : 1965 Visit/Account:[id number] Date of Sevice: 04/07/2019 CHEST PA LAT COMPARISONS: 2 view chest dated March 15, 2019 ADDITIONAL PERTINENT HISTORY: Cough with fall one week ago. FINDINGS: Cardiomediastinal silhouette: Negative. Pulmonary vasculature: Negative. Lung blount: Negative. Pleural spaces: Negative. Osseous structures: Continued mild to moderate scoliotic curvature convex to the right centered thuy g the mid to lower thoracic spine. Patient status post previous interbody fusion of the lower cervica l spine. Surrounding soft tissues: Patient status post cholecystectomy. IMPRESSION: No evidence of acute cardiopulmonary disease. Report Dictated By: Giuliana Rodríguez MD at 04/08/2019 12:25 AM Report E-Signed By: Giuliana Rodríguez MD at 04/08/2019 12:26 AM WSN:[email or web address]
--- NOTE | 2019-04-08 00:53 | RADIOLOGY IMAGING REPORT ---
[facility] PATIENT NAME: Rand Gautam : 1965 MR: [id number] V: [id number] EXAM DATE: ORDERING PHYSICIAN: GIULIANA VASQUEZ TECHNOLOGIST: Location: [facility] Patient: Rand Gautam : 1965 Visit/Account:[id number] Date of Sevice: 04/07/2019 XR KNEE 3 VWS, bilateral COMPARISONS: None. ADDITIONAL PERTINENT HISTORY: Knee pain FINDINGS: Osseous structures: Mild diffuse osteopenia. Otherwise negative Joint spaces: Negative. Surrounding soft tissues: Negative. IMPRESSION: 1. Mild diffuse osteopenia involving both knees. 2. No acute appearing bony abnormalities. Report Dictated By: Giuliana Rodríguez MD at 04/08/2019 12:45 AM Report E-Signed By: Giuliana Rodríguez MD at 04/08/2019 12:46 AM [id number]
== END ==
LOC: RAD 17:04
PROVIDERS: ATTEND Family Medicine
DX: R05 Cough (principal); M25.561 Pain in right knee; M85.80 Other specified disorders of bone density and structure, unspecified site
CPT/HCPCS: 71046

== ENCOUNTER → 2019-04-28 | Outpatient (CLI) | payer BC ==
[2018-12-05 12:29] VITALS: BMI 32.9
--- NOTE | 2019-04-28 10:34 | RADIOLOGY IMAGING REPORT ---
[place] [facility] [place] NAME: Rand Gautam : 1965 MR: [id number] V: [id number] EXAM DATE: ORDERING PHYSICIAN: EVERETT BUTLER TECHNOLOGIST: Location: [facility] [place] Patient: Rand Gautam : 1965 Visit/Account:[id number] Date of Sevice: 04/28/2019 CT VERTEBRA CERVICAL (NON CON) COMPARISONS: CT the cervical spine without contrast dated October 2018 ADDITIONAL PERTINENT HISTORY: Previous cervical fusion TECHNIQUE: Multiple axial images were obtained from the skull base through the upper thoracic spine with coronal and sagittal reformatted images obtained without IV contrast. One of the following dose optimization techniques was utilized in the performance of this exam: Automated exposure control; adj ustment of the mA and/or kV according to the patient's size; or use of an iterative reconstruction t echnique. Specific details can be referenced in the facility's radiology CT exam operational policy. FINDINGS. Postoperative changes: Patient status post previous interbody fusion of C4-C5, C5-C6 and C6-C7. Vertebral body heights and alignment: Reversal of normal cervical lordosis centered at C5-C6. Vertebral bodies: Negative. Disc spaces: Fusion material in the disc spaces at C4-C5, C5-C6 and C6-C7. Cranial cervical junction: Negative. Cervical thoracic junction: Negative. Surrounding soft tissues: Negative. Lung apices: Negative. IMPRESSION: 1. Postoperative changes as discussed above. 2. No acute appearing bony abnormalities. Report Dictated By: Jakob Rodríguez MD at 04/28/2019 10:22 AM Report E-Signed By: Jakob Rodríguez MD at 04/28/2019 10:26 AM [id number]
== END ==
LOC: CT 01:20
PROVIDERS: ATTEND Orthopaedic Surgery
DX: Z98.1 Arthrodesis status (principal)
CPT/HCPCS: 72125

== ENCOUNTER → 2019-04-28 | Outpatient (CLI) | payer BC ==
[2018-12-05 12:29] VITALS: BMI 32.9
--- NOTE | 2019-04-28 12:11 | RADIOLOGY IMAGING REPORT ---
FACILITY: [facility] - [place] PATIENT NAME: Rand Gautam : 1965 MR: [id number] V: [id number] EXAM DATE: ORDERING PHYSICIAN: GIULIANA VASQUEZ TECHNOLOGIST: Location: [facility] [place] Patient: Rand Gautam : 1965 Visit/Account:[id number] Date of Sevice: 04/28/2019 CHEST PA LAT INDICATION: Cough COMPARISON: 04/07/2019 FINDINGS: Heart size within normal limits. There is no focal infiltrate or lobar consolidation. There is no pneumothorax or pleural effusion. IMPRESSION: 1. No acute cardiopulmonary process. Report Dictated By: Ty Skelton at 04/28/2019 12:02 PM Report E-Signed By: Ty Skelton at 04/28/2019 12:02 PM WSN:[id number]
== END ==
LOC: RAD 11:42
PROVIDERS: ATTEND Family Medicine
DX: R05 Cough (principal)
CPT/HCPCS: 71046